=== PATIENT | male | born 1940 | race Caucasian/White ===

== ENCOUNTER → 2017-04-06 | Outpatient (CLI) | payer OTHER ==
[~2017-04-06] MED LIST: ASPCH81X PO; CIPR-255 PO; DUTA0.5C PO; IPRA1AER2 INH; MOME200A INH; OXYC-57 PO; PANT40TA PO; PHEN-775 PO; TAMS0.4C38 PO
--- NOTE | 2017-04-06 13:00 | DIAGNOSTIC IMAGING REPORT ---
CHEST 2 VIEWS ROUTINE CLINICAL HISTORY: PRE-OP preoperative evaluation COMPARISON STUDY: 09/21/2013 FINDINGS: The bones soft tissues and hemidiaphragms are normal. The cardiomediastinal silhouette is normal. The lungs are clear. The pulmonary vasculature is normal. IMPRESSION: Negative chest. Electronically signed by: Skyler Machado M.D. 04/06/2017 12:58 PM Dictated Date/Time: 04/06/2017 12:58 PM
[2017-04-06 13:20] LABS: BASO % 0.9 %; BASO ABS # 0.07 K/uL (0-0.2); COMPLETE YES; EOS % 2.6 %; HEMATOCRIT 46.2 % (42-52); IG% 0.3 %; LYMPH % 26.8 %; LYMPH ABS # 2.05 K/uL (1.2-3.4); MEAN CELL VOLUME 90.1 fL (80-100); MEAN CORPUSCULAR HEMOGLOBIN 29.8 pg (25-34); MEAN CORPUSCULAR HGB CONC 33.1 g/dl (32-36); MEAN PLATELET VOLUME 10.4 fL (7.4-10.4); MONO % 7.6 %; NEUT % 61.8 %; PLATELET COUNT 248 K/uL (130-400); RED BLOOD COUNT 5.13 M/uL (4.7-6.1); WHITE BLOOD COUNT 7.64 K/uL (4.8-10.8)
[2017-04-06 13:48] LABS: BLOOD UREA NITROGEN 15 mg/dl (7-18); BUN/CREATININE RATIO 15.3 (10-20); CARBON DIOXIDE 25 mmol/L (21-32); CHLORIDE 107 mmol/L (98-107); GLUCOSE 112 mg/dl (70-99); POTASSIUM 4.4 mmol/L (3.5-5.1); SODIUM 141 mmol/L (136-145)
[2017-04-06 14:15] LABS: URINE APPEARANCE CLEAR (CLEAR); URINE BILIRUBIN NEG (NEG); URINE COLOR YELLOW; URINE NITRITE NEG (NEG); URINE SPECIFIC GRAVITY 1.011 (1.000-1.030); UROBILINOGEN NEG (NEG)
[2017-04-06 14:28] LABS: MANUAL MICROSCOPIC REQUIRED? NO; REVIEW REQ? NO
== END | disposition home or self-care (01) ==
LOC: C.CPL 12:21
PROVIDERS: ATTEND Urology
DX: Z01.810 Encounter for preprocedural cardiovascular examination (principal); Z01.811 Encounter for preprocedural respiratory examination; Z01.812 Encounter for preprocedural laboratory examination; I45.10 Unspecified right bundle-branch block

== ENCOUNTER 2017-04-19 06:53 | Day surgery (SDC) | payer OTHER ==
[2017-04-06 13:21] VITALS: BMI 28.0
--- NOTE | 2017-04-06 13:48 | PAT Medication Instructions ---
Service Date Apr 06, 2017. Current Home Medication List Aspirin (Aspirin Chewable), 81 MG PO QAM Dutasteride (Avodart), 0.5 MG PO QPM Mometasone Furoate-Formoterol (Dulera 200/5 Mcg), 2 PUFFS INH BID Pantoprazole Sodium (Protonix), 40 MG PO QAM Tamsulosin Hcl (Flomax), 0.4 MG PO QPM Medication Instructions For Your Scheduled Surgery - Hold the following medications 7-10 days prior to surgery per surgeon's instructions: Aspirin (Aspirin Chewable), 81 MG PO QAM - Take the following medications the morning of surgery with a sip of water OTHERWISE NOTHING TO EAT OR DRINK AFTER MIDNIGHT: Pantoprazole Sodium (Protonix), 40 MG PO QAM Mometasone Furoate-Formoterol (Dulera 200/5 Mcg), 2 PUFFS INH BID - Take the following medications as scheduled the night before surgery: Dutasteride (Avodart), 0.5 MG PO QPM Tamsulosin Hcl (Flomax), 0.4 MG PO QPM Mometasone Furoate-Formoterol (Dulera 200/5 Mcg), 2 PUFFS INH BID If you have any questions please call us at [phone] or [phone] or [phone]
[~2017-04-19] VITALS: Ht 167.6 cm; Wt 80.4 kg
[~2017-04-19 06:53] MED LIST changes: -CIPR-255 PO; +CIPROFLOXACIN / D5W 400 MG IV SCH; -IPRA1AER2 INH; +LACTATED RINGER'S 1000ML 1,000 ML IV SCH; -OXYC-57 PO; -PHEN-775 PO
[2017-04-19] MEDS ORDERED: ATROPINE SULFATE 0.1 MG/ML 5ML SYR IV PRN (07:00)
[2017-04-19] MEDS ORDERED: ONDANSETRON INJ 2 MG/ML 2 ML VIAL IV PRN (07:00)
[2017-04-19] MEDS ORDERED: EpHEDrine SULFATE INJ 50 MG/ML AMP IV PRN (07:00)
[2017-04-19] MEDS ORDERED: HYDROmorphone INJ 1 MG/ML SYR IV PRN (07:00)
[2017-04-19] MEDS ORDERED: FENTANYL CITRATE INJ 50 MCG/1 ML 2 ML VIAL IV PRN (07:00)
[2017-04-19 07:22] VITALS: BP 140/77; PULSE 90; TEMP 36.7; O2SAT 94; Ht 167.6 cm; Wt 80.4 kg
[2017-04-19] MEDS ORDERED: PROPOFOL IV EMULSION 10 MG/ML 20 ML VIAL IV ONE (07:28)
[2017-04-19] MEDS ORDERED: MIDAZOLAM HCL 1 MG/ML 2ML VIAL ONE (07:28)
[2017-04-19] MEDS ORDERED: LIDOCAINE HCL 2% 2 ML VIAL (20MG/ML) ONE (07:28)
[2017-04-19] MEDS ORDERED: DEXAMETHASONE SOD INJ 4 MG/ML VIAL ONE (07:28)
[2017-04-19] MEDS ORDERED: FENTANYL CITRATE INJ 50 MCG/1 ML 2 ML VIAL ONE (07:28)
[2017-04-19] MEDS ORDERED: ONDANSETRON INJ 2 MG/ML 2 ML VIAL ONE (07:29)
--- NOTE | 2017-04-19 08:04 | History & Physical Bridge Note ---
H&P Re-Evaluation Bridge Note: I have examined the patient, reviewed the History & Physical and in the interval since the performance of the History & Physical I have noted the following changes of clinical significance: No changes noted
[2017-04-19] MEDS ORDERED: CIPR-255 PO (08:30)
[2017-04-19] MEDS ORDERED: OXYC-57 PO (08:30)
[2017-04-19] MEDS ORDERED: PHEN-775 PO (08:30)
[2017-04-19] MEDS ORDERED: BELLADONNA/OPIUM SUPP 60 MG SUPP PR ONE ×2 (08:50→08:56)
--- NOTE | 2017-04-19 09:17 | Discharge Instructions ---
Discharge Instructions Date of Service Apr 19, 2017. Admission Reason for Admission: Benign Prostatic Hypertrophy Discharge Discharge Diagnosis / Problem: BPH s/p GLTURP Discharge Goals Goal(s): Decrease discomfort, Improve function, Improve disease control, Therapeutic intervention Activity Recommendations Activity Limitations: per Instructions/Follow-up section Lifting Limitations: no more than 25 pounds, gradually increase as tolerated ( over 3 days) Exercise/Sports Limitations: rest today, gradually increase as tolerated (over 3 days) May Resume Sexual Activity: after two weeks Shower/Bathe: tomorrow (no tub bath) Driving or Machine Use: resume 3 days after discharge (after romano is out) . Discharge Diet Recommended Diet: Regular Diet (good fluid intake) Procedures Procedures Performed: Greenlight Transurethral Vaporization of Prostate Pending Studies Studies pending at discharge: no Medical Emergencies . Who to Call and When: Medical Emergencies: If at any time you feel your situation is an emergency, please call 911 immediately. . Non-Emergent Contact Non-Emergency issues call your: Urologist Call Non-Emergent contact if: you have a fever, temperature is above 101, your pain is not controlled, your pain is worsening, your pain is unusual for you, your pain is concerning you, you have any medication questions . . "Provider Documentation" section prepared by Demetris Purdy. . VTE Core Measure Inpt VTE Proph given/why not?: SCD's [place] Drug Monitoring Program Search Results: patient reviewed within database, no issues identified
--- NOTE | 2017-04-19 09:21 | [facility] Post Operative Brief Note ---
Immediate Operative Summary Operative Date Apr 19, 2017. Pre-Operative Diagnosis Benign prostatic hypertrophy with obstruction/lower urinary tract symptoms Post-Operative Diagnosis Same Procedure(s) Performed Greenlight Transurethral Vaporization of Prostate Surgeon Dr Cyn Purdy Manager Lighting Surgeon(s) NA Estimated Blood Loss 5ml Findings Open fossa, excellent hemostasis after 65K J used Specimens none Drains 20 fr 10 cc H2O Anesthesia GALMA Complication(s) None Disposition Recovery Room / PACU
--- NOTE | 2017-04-19 09:23 | [facility] Operative Report ---
Operative Report Operative Date Apr 19, 2017. Pre-Operative Diagnosis Benign prostatic hypertrophy with obstruction/lower urinary tract symptoms Post-Operative Diagnosis Same Procedure(s) Performed GLTURP Surgeon Dr Cyn Purdy Sewage Plant Attendant Surgeon(s) NA Estimated Blood Loss 5ml Findings Open fossa with excellent hemostasis after 65K J used Specimens none Drains 20 fr 10 cc H2O Anesthesia GALMA Complication(s) None Disposition Recovery Room / PACU Indications Refractory BPH Description of Procedure Cipro IV and SCDs used. radio time buyer out completed, appropriate consent in chart. Prepped and draped in dorsal lithotomy. GL laser scope placed into bladder under direction visualization with visual obturator - lateral lobe BPH, mild to mod with obstructive bladder neck. UOs identified, adequately removed from BN, uninjured throughout case. No intravesical lesions, grade 2 trabeculation. Using side fire GL laser fiber circumferential vaporization carried out until fossa open. Relaxing incisions at BN at 5 and 7 oclock. Excellent hemostasis and opening of fossa, 65K J used. 20 fr romano placed with clear urine, 10 cc H2O , B&O provided, transferred RR in stable condition. I attest to the content of the Intraoperative Record and any orders documented therein. Any exceptions are noted below.
[2017-04-19] MEDS ORDERED: OXYCODONE/ACETAMINOPHEN 5-325 TAB PO PRN (09:30)
[2017-04-19] MEDS ORDERED: PHENAZOPYRIDINE HCL 200 MG TAB PO PRN (09:30)
--- NOTE | 2017-04-19 09:49 | Anesthesiology Progress Note ---
Anesthesia Post Op Note Date & Time Apr 19, 2017 at 09:49 Vital Signs Pain Intensity: 0 Vital Signs Past 12 Hours Date Time Temp Pulse Resp B/P (MAP) Pulse Ox O2 Delivery O2 Flow Rate FiO2 04/19/17 09:40 78 14 135/85 96 Oxymask 5 04/19/17 09:30 75 14 131/84 96 Oxymask 5 04/19/17 09:20 76 14 130/81 96 Oxymask 10 04/19/17 09:14 36.0 80 14 139/79 96 Oxymask 10 04/19/17 07:22 36.7 90 20 140/77 (98) 94 Room Air Notes Mental Status: alert / awake / arousable, participated in evaluation Pt Amnestic to Procedure: Yes Nausea / Vomiting: adequately controlled Pain: adequately controlled Airway Patency, RR, SpO2: stable & adequate BP & HR: stable & adequate Hydration State: stable & adequate Anesthetic Complications: no major complications apparent
[2017-04-19 10:00] VITALS: BP 112/69; PULSE 72; TEMP 36.6; O2SAT 94
[2017-04-19 10:30] VITALS: BP 119/72; PULSE 67; O2SAT 94
[2017-04-19 10:59] VITALS: BP 139/83; PULSE 71; TEMP 36.5; O2SAT 96
== END 2017-04-19 11:08 | disposition home or self-care (01) ==
LOC: C.ACU 06:53
PROVIDERS: ATTEND Urology
DX: N40.1 Benign prostatic hyperplasia with lower urinary tract symptoms (principal); N13.8 Other obstructive and reflux uropathy; N52.9 Male erectile dysfunction, unspecified; J44.9 Chronic obstructive pulmonary disease, unspecified; M19.90 Unspecified osteoarthritis, unspecified site; E11.9 Type 2 diabetes mellitus without complications; J45.909 Unspecified asthma, uncomplicated; Z98.890 Other specified postprocedural states; Z88.0 Allergy status to penicillin; Z87.891 Personal history of nicotine dependence; Z79.82 Long term (current) use of aspirin; Z83.3 Family history of diabetes mellitus; Z82.49 Family history of ischemic heart disease and other diseases of the circulatory system; Z68.28 Body mass index [BMI] 28.0-28.9, adult

== ENCOUNTER → 2017-05-12 | Outpatient (CLI) | payer OTHER ==
[~2017-05-12] MED LIST changes: +CIPR-255 PO; -CIPROFLOXACIN / D5W 400 MG IV SCH; -LACTATED RINGER'S 1000ML 1,000 ML IV SCH; +OXYC-57 PO
== END | disposition home or self-care (01) ==
LOC: C.LABSPEC 16:53
PROVIDERS: ATTEND Urology
DX: N40.1 Benign prostatic hyperplasia with lower urinary tract symptoms (principal); N52.9 Male erectile dysfunction, unspecified

== ENCOUNTER → 2017-12-22 | Outpatient (CLI) | payer OTHER ==
[~2017-12-22] MED LIST changes: -OXYC-57 PO
--- NOTE | 2017-12-22 13:56 | DIAGNOSTIC IMAGING REPORT ---
BONE SCAN WHOLE BODY CLINICAL HISTORY: 77 years-old Male presenting with R74.8 Elevated alkaline phosphatase [id number]. TECHNIQUE: Planar anterior and posterior imaging of the whole body was performed 3 hours following the intravenous administration of 24.9 mCi Tc-99m MDP. COMPARISON: Chest x-ray from 04/06/2017 FINDINGS: No focal abnormal radiotracer uptake in the axial or appendicular skeleton. Soft tissues within normal limits. Expected radiotracer activity in the kidneys and urinary bladder. Radiotracer uptake in the region of the right scrotum likely represents micturition. IMPRESSION: 1. No abnormal radiotracer uptake in the axial or appendicular skeleton. Electronically signed by: Cristobal Morrow M.D. 12/22/2017 1:55 PM Dictated Date/Time: 12/22/2017 1:53 PM
== END | disposition home or self-care (01) ==
LOC: C.NUCL 10:31
PROVIDERS: ATTEND Internal Medicine
DX: R74.8 Abnormal levels of other serum enzymes (principal)

== ENCOUNTER 2020-11-01 11:37 | Observation (INO) ==
[2020-11-01] MEDS ORDERED: ALBUT/IPRATROP 3MG/0.5MG NEB 3 ML VIAL NEB ONE (11:58)
--- NOTE | 2020-11-01 12:01 | Emergency Department Note ---
Impression & Plan COPD with acute exacerbation ED Provider Note Provider: Humphrey Francis MD DATE OF SERVICE:11/01/2020 CHIEF COMPLAINT: Shortness of breath HISTORY OF PRESENT ILLNESS: Patient is a 80-year-old gentleman history of COPD and restrictive lung disease presenting today complaining of shortness of breath worsening over the last several months particular last week. Denies fever or URI symptoms. Reports shortness of breath with some chest congestion and clear productive cough. States some pain in his chest he believes related to the coughing increased work of breathing. Denies nausea vomiting or abdominal pain. Denies loss of taste. Denies trauma or falls. Denies leg swelling. Patient states over the last week is prickly worsened and he cannot lie flat at night anymore. Was worse last night and family finally convinced to be evaluated today. Several family contacts with Covid although he states he has been isolating from them. Patient states he does not have any inhalers or nebulizers has been using at home. REVIEW OF SYSTEMS: A total of 10 review of systems was obtained and negative except as stated above in the HPI. PAST MEDICAL HISTORY: As noted above MEDICATIONS: Reviewed home medication list. Includes Advair at home and as needed albuterol SOCIAL HISTORY: Former longtime smoker, lives at home with PHYSICAL EXAM: GENERAL: alert and oriented seated on the stretcher. Head: normocephalic and atraumatic EYES: No injection, discharge or icterus. NECK: Trachea midline. LUNGS: Airway patent. Mild tachypnea with diffuse expiratory wheeze. HEART: Regular rate and rhythm. No chest wall tenderness ABDOMEN: Soft and non-tender, without guarding or rebound. SKIN: Acyanotic, warm, dry, without rashes EXTREMITIES: Without swelling, tenderness or deformity NEUROLOGICAL: No focal deficits. No aphasia. No facial droop or slurred speech. EK bpm sinus tachycardia with PACs. No acute ST segment elevation noted. Incomplete right bundle branch block. Compared to previous film from April [id number], increased heart rate with more of an incomplete right bundle branch block and right bundle branch block noted CONTINUOUS CARDIAC MONITORING: was ordered and showed a heart rate of 100s-120s bpm in sinus tachycardia Patient's laboratory studies and imaging reviewed. Differential includes Reactive airway disease, pneumonia, pneumothorax, COPD, C HF, infections, cardiac ischemia, pulmonary embolism, musculoskeletal, gastrointestinal, as well as other pathologies. IMPRESSION/MEDICAL DECISION MAKING: Patient with a history of COPD and restrictive lung disease reports significantly worsening breathing of the past week possible Covid exposure. Patient denies URI symptoms or fever however the shortness of breath is somewhat concerning Covid test will be ordered. EKG without significant ischemic changes appreciated. Patient significantly wheezy on exam but not hypoxic. Given a DuoNeb and chest x-ray and basic labs are ordered. No significant leg swelling appreciated on exam but a BNP was ordered. D-dimer sent to help exclude PE. Doubt this represents acute aortic dissection. Lactate and culture sent given some concern for possible infectious etiology. Leukocytosis of 10.8. Borderline anemia. No significant electrolyte abn ormality. Lactate not elevated. No transaminitis. Rapid Covid test was negative. Chest x-ray shows per radiology report evidence of cardiomegaly with reticular opacities questioning pulmonary vascular congestion versus pneumonitis. proBNP is not elevated again he does not examine significantly fluid overloaded. Troponin is undetectable and lean against an acute ACS or NC. TSH within normal limits. No evidence of transaminitis or hepatitis based on labs. D-dimer is somewhat elevated at [address] and as such a CT of the chest was completed to further evaluate the lungs and exclude PE. No evidence of PE noted per radiology report. Patient on reassessment is having some improvement of his breathing after being started on the nebulizer treatment. Discussed with him options this time. He expressed some concern regarding possible recurrence of symptoms at this nebulizer wears off and he does not have a nebulizer at home. Discussed with him options of trial going home on steroids versus observation here in the hospital. He was given an IV dose of Solu-Medrol here as well as a dose of doxycycline questioning some bronchitis noted on the CT. Discussion with the patient he felt more comfortable being monitored here overnight in the hospital and the hospitalist was contacted. DIAGNOSIS: COPD exacerbation DISPOSITION: Hospitalist will evaluate Patient was agreeable with this plan. Past Med/Surg History Medical History (Updated 11/01/20 @ 15:52 by Humphrey Francis M.D.) BPH (benign prostatic hyperplasia) Carcinoma of right eyelid Chronic obstructive pulmonary disease inhalers daily/prn COPD (chronic obstructive pulmonary disease) Cyst in hand right hand 06/2019 GERD (gastroesophageal reflux disease) Kidney stones Restrictive lung disease Surgical History H/O: knee surgery RT TENDON REPAIR History of cardiac cath HEART CATH X 2/NO STENTS History of colon resection BENIGN History of colonoscopy History of eyelid surgery right d/t cancer History of rectal surgery GROWTH REMOVAL History of tonsillectomy and adenoidectomy History of tooth extraction Hx of transurethral resection of prostate Family History Brother Type 2 diabetes mellitus Aunt Type 2 diabetes mellitus Myocardial infarction Social History Smoking Status: Former smoker Tobacco Type: Cigarettes Age Started Using Tobacco: 9; Age Quit Using Tobacco: 73; packs per day: 1; Years Smoked: 64; Second Hand Exposure: No; Hx Alcohol Use: No Hx Substance Use: No Preferred Language: Guyanese Communication Ability: Effective Visual Impairment: Limited Hearing Ability: Use of Hearing Aid Compress Trucker Required: No Beliefs That Will Affect Care: None marital status: Current Living Situation: Spouse current occupational status: retired Feels Safe at Home: Yes Childhood Exposure to Second-Hand Smoke: Yes caffeine: Yes Dental Care, Regularly: No Physical Activity Frequency: Daily Physical Activity Frequency Comment: walk Seatbelt Use: always Sunscreen Use: No (stays out of the sun) Do you think of yourself as: straight/heterosexual Assistive Devices: Denture - Upper, Denture - Lower, Glasses and Hearing Aid - Right Allergies Allergies Allergy/AdvReac Type Severity Reaction Status Date / Time Penicillins Allergy Severe SHORTNESS Verified 11/01/20 14:15 OF BREATH procaine Allergy Unknown FLUSHING Verified 11/01/20 14:15 AND SHORTNESS OF BREATH Home Meds Home Medications Medication Instructions Recorded Confirmed aspirin 81 mg PO QAM #0 02/27/15 11/01/20 albuterol sulfate [ProAir HFA] 1 puff INHALATION DIRECTED PRN 06/15/18 11/01/20 cholecalciferol (vitamin D3) 3,000 unit PO QDD 11/01/20 11/01/20 [Vitamin D3] finasteride 5 mg PO QAM 11/01/20 11/01/20 fluticasone furoate-vilanterol 1 inh INHALATION HS 11/01/20 11/01/20 [Breo Ellipta] metformin 500 mg PO QAM 11/01/20 11/01/20 methimazole 5 mg PO QAM 11/01/20 11/01/20 pantoprazole 40 mg PO QAM 11/01/20 11/01/20 zinc 0 mg PO HS 11/01/20 11/01/20 Results & Data (ED) Vital Signs Vital Signs - 24 hr 11/01/20 11:43 11/01/20 11:54 11/01/20 11:56 Temperature 37.1 C Temperature Source Oral Pulse Rate 101 H Pulse Rate [Finger] Pulse Rhythm Regular Pulse Strength Normal Respiratory Rate 28 H Respiratory Effort / Characteristics Non-Labored Spontaneous Non-Labored Spontaneous Respiratory Depth Normal Respiratory Pattern Regular Blood Pressure 140/74 Blood Pressure [Right Arm] Blood Pressure Mean 96 Blood Pressure Mean [Right Arm] Pulse Oximetry 94 93 Oxygen Delivery Method Room Air Room Air Room Air Sepsis Recent Fever Within 48 Hours No Sepsis New/Unexplained Change in Mental Status N/A Sepsis Action Taken by Nursing No Action Required 11/01/20 12:02 11/01/20 12:14 11/01/20 13:09 Temperature Temperature Source Pulse Rate Pulse Rate [Finger] 101 H 106 H Pulse Rhythm Pulse Strength Respiratory Rate 24 20 Respiratory Effort / Characteristics Spontaneous Short of Breath Respiratory Depth Respiratory Pattern Blood Pressure Blood Pressure [Right Arm] 167/86 H Blood Pressure Mean Blood Pressure Mean [Right Arm] 113 Pulse Oximetry 93 95 99 Oxygen Delivery Method Room Air Room Air Nebulizer Sepsis Recent Fever Within 48 Hours Sepsis New/Unexplained Change in Mental Status Sepsis Action Taken by Nursing 11/01/20 14:30 11/01/20 15:30 Temperature Temperature Source Pulse Rate Pulse Rate [Finger] 110 H 110 H Pulse Rhythm Pulse Strength Respiratory Rate 22 22 Respiratory Effort / Characteristics Respiratory Depth Normal Respiratory Pattern Blood Pressure Blood Pressure [Right Arm] 125/89 123/88 Blood Pressure Mean Blood Pressure Mean [Right Arm] 101 99 Pulse Oximetry 94 95 Oxygen Delivery Method Room Air Room Air Sepsis Recent Fever Within 48 Hours Sepsis New/Unexplained Change in Mental Status Sepsis Action Taken by Nursing Laboratory Data Result diagrams: 11/01/20 11:56 11/01/20 11:56 Lab Results 11/01/20 11/01/20 11/01/20 Range/Units 11:56 11:56 11:56 WBC 10.89 H (4.8-10.8) K/uL RBC 5.17 (4.7-6.1) M/uL Hgb 13.9 L (14.0-18.0) g/dL Hct 42.8 (42-52) % MCV 82.8 (80-100) fL MCH 26.9 (25-34) pg MCHC 32.5 (32-36) g/dL RDW Std Deviation 45.7 (36.4-46.3) fL RDW Coeff of Thalia 15.1 H (11.5-14.5) % Plt Count 338 (130-400) K/uL MPV 10.3 (7.4-10.4) fL Immature Gran % (Auto) 0.2 % Neut % (Auto) 68.0 % Lymph % (Auto) 16.8 % [place] % (Auto) 7.3 % Eos % (Auto) 6.6 % Baso % (Auto) 1.1 % Neut # (Auto) 7.40 H (1.4-6.5) K/uL Lymph # (Auto) 1.83 (1.2-3.4) K/uL [place] # (Auto) 0.80 H (0.11-0.59) K/uL Eos # (Auto) 0.72 H (0-0.5) K/uL Baso # (Auto) 0.12 (0-0.2) K/uL Immature Gran # (Auto) 0.02 (0.00-0.02) K/uL PT 10.5 (9.0-12.0) Seconds INR 1.0 (0.9-1.1) APTT 25.8 (21.0-31.0) Seconds PTT Ratio 0.9 D-Dimer 550 H* (0-500) ug/L FEU Sodium 138 (136-145) mmol/L Potassium 4.1 (3.5-5.1) mmol/L Chloride 105 (98-107) mmol/L Carbon Dioxide 25 (21-32) mmol/L Anion Gap 7.0 (3-11) BUN 16 (7-18) mg/dl Creatinine 1.10 (0.6-1.4) mg/dl Est Cr Clr Drug Dosing 54.1 ml/min Est GFR ( Amer) 73.6 Est GFR (Non-Af Amer) 63.5 BUN/Creatinine Ratio 14.4 (10-20) Glucose 133 H (70-99) mg/dl Lactate (0.4-2.0) mmol/L Calcium 9.8 (8.5-10.1) mg/dl Magnesium 1.8 (1.8-2.4) mg/dl Total Bilirubin 0.5 (0.2-1) mg/dl AST 14 L (15-37) U/L ALT 31 (12-78) U/L Alkaline Phosphatase 117 (45-117) U/L Troponin I < 0.015 (0-0.045) ng/ml NT-Pro-B Natriuret Pep 99 (0-1800) pg/ml Total Protein 8.0 (6.4-8.2) gm/dl Albumin 4.0 (3.4-5.0) gm/dl Globulin 4.0 (2.5-4.0) gm/dl Albumin/Globulin Ratio 1.0 (0.9-2) TSH 1.790 (0.300-4.500) uIu/ml COVID-19 Eval Order SARS-CoV-2, RNA, NAAT (NEGATIVE) 11/01/20 11/01/20 11/01/20 Range/Units 12:11 12:13 12:13 WBC (4.8-10.8) K/uL RBC (4.7-6.1) M/uL Hgb (14.0-18.0) g/dL Hct (42-52) % MCV (80-100) fL MCH (25-34) pg MCHC (32-36) g/dL RDW Std Deviation (36.4-46.3) fL RDW Coeff of Thalia (11.5-14.5) % Plt Count (130-400) K/uL MPV (7.4-10.4) fL Immature Gran % (Auto) % Neut % (Auto) % Lymph % (Auto) % [place] % (Auto) % Eos % (Auto) % Baso % (Auto) % Neut # (Auto) (1.4-6.5) K/uL Lymph # (Auto) (1.2-3.4) K/uL [place] # (Auto) (0.11-0.59) K/uL Eos # (Auto) (0-0.5) K/uL Baso # (Auto) (0-0.2) K/uL Immature Gran # (Auto) (0.00-0.02) K/uL PT (9.0-12.0) Seconds INR (0.9-1.1) APTT (21.0-31.0) Seconds PTT Ratio D-Dimer (0-500) ug/L FEU Sodium (136-145) mmol/L Potassium (3.5-5.1) mmol/L Chloride (98-107) mmol/L Carbon Dioxide (21-32) mmol/L Anion Gap (3-11) BUN (7-18) mg/dl Creatinine (0.6-1.4) mg/dl Est Cr Clr Drug Dosing ml/min Est GFR ( Amer) Est GFR (Non-Af Amer) BUN/Creatinine Ratio (10-20) Glucose (70-99) mg/dl Lactate 1.5 (0.4-2.0) mmol/L Calcium (8.5-10.1) mg/dl Magnesium (1.8-2.4) mg/dl Total Bilirubin (0.2-1) mg/dl AST (15-37) U/L ALT (12-78) U/L Alkaline Phosphatase (45-117) U/L Troponin I (0-0.045) ng/ml NT-Pro-B Natriuret Pep (0-1800) pg/ml Total Protein (6.4-8.2) gm/dl Albumin (3.4-5.0) gm/dl Globulin (2.5-4.0) gm/dl Albumin/Globulin Ratio (0.9-2) TSH (0.300-4.500) uIu/ml COVID-19 Eval Order Covid19 IDNow Replaced by [facility] SARS-CoV-2, RNA, NAAT NEGATIVE (NEGATIVE) Administered Medications Discontinued Medications Albuterol (Albut/Ipratrop 3mg/0.5mg Neb 3 Ml Vial) 12 ml NEB ONE ONE Stop: 11/01/20 11:59 Last Admin: 11/01/20 12:13 Dose: 12 ml Documented by: [id number] Doxycycline Hyclate (Doxycycline Hyclate 100 Mg Cap) 100 mg PO NOW STA Stop: 11/01/20 14:09 Last Admin: 11/01/20 14:28 Dose: 100 mg Documented by: [id number] Methylprednisolone 60 mg/ (Syringe) 1.96 mls @ 1.5 mls/min IV NOW STA Stop: 11/01/20 14:08 Last Admin: 11/01/20 14:28 Dose: Not Given Documented by: [id number] Ioversol (Optiray 320 125ml) 118 ml IV ONCE ONE Stop: 11/01/20 13:35 Last Admin: 11/01/20 13:34 Dose: 118 ml Documented by: [id number] Methylprednisolone (Methylprednisolone 125 Mg/2 Ml Vial) Confirm Administered Dose 125 mg .ROUTE .STK-MED ONE Stop: 11/01/20 14:25 Last Admin: 11/01/20 14:28 Dose: 60 mg Documented by: [id number] Discharge Plan Visit Data Chief Complaint: Shortness of Breath/Dyspnea Stated Complaint: SOB ED Provider: Humphrey Francis Discharge Problem: COPD with acute exacerbation Patient Disposition: Being Evaluated by Hospitalist Forms Stand Alone Forms: My [facility] [employer] Prescriptions Prescriptions: No Action aspirin 81 mg Tablet,Chewable 81 mg PO QAM Qty: 0 RF: 0 albuterol sulfate [ProAir HFA] 90 mcg/actuation Hfa Aerosol Inhaler 1 puff Inhalation DIRECTED PRN (Reason: Shortness Of Breath) RF: 0 zinc 50 mg Tablet 0 mg PO HS RF: 0 cholecalciferol (vitamin D3) [Vitamin D3] 25 mcg (1,000 unit) Tablet 3,000 unit PO QDD RF: 0 pantoprazole 40 mg tablet,delayed release (DR/EC) 40 mg PO QAM RF: 0 methimazole 5 mg tablet 5 mg PO QAM RF: 0 metformin 500 mg tablet extended release 24 hr 500 mg PO QAM RF: 0 finasteride 5 mg tablet 5 mg PO QAM RF: 0 Breo Ellipta 100-25 mcg/dose blister with device 1 inh inhalation HS RF: 0 Referrals Referrals: Cristobal Galo MD [Primary Care Provider] -
[2020-11-01 12:36] LABS: Basophils # (auto) 0.12 K/uL (0-0.2); Basophils % (auto) 1.1 %; Eosinophils # (auto) 0.72 K/uL (0-0.5); Eosinophils % (auto) 6.6 %; Hematocrit (blood only) 42.8 % (42-52); Hemoglobin 13.9 g/dL (14.0-18.0); Immature Granulocytes # (auto) 0.02 K/uL (0.00-0.02); Immature Granulocytes % (auto) 0.2 %; Lymphocytes # (auto) 1.83 K/uL (1.2-3.4); Lymphocytes % (auto) 16.8 %; Mean Corpuscular Hemoglobin 26.9 pg (25-34); Mean Corpuscular Hgb Conc 32.5 g/dL (32-36); Mean Corpuscular Volume 82.8 fL (80-100); Mean Platelet Volume 10.3 fL (7.4-10.4); Monocytes % (auto) 7.3 %; Platelet Count 338 K/uL (130-400); RDW Coefficient of Variation 15.1 % (11.5-14.5); RDW Standard Deviation 45.7 fL (36.4-46.3); Red Blood Count 5.17 M/uL (4.7-6.1); White Blood Count 10.89 K/uL (4.8-10.8)
--- NOTE | 2020-11-01 12:40 | XRay Report ---
XR chest 1V portable HISTORY: 80 years-old Male Dyspnea acute shortness of breath COMPARISON: Chest radiograph 04/06/2017 TECHNIQUE: Portable AP view of the chest FINDINGS: Cardiac silhouette is mildly enlarged. There is no pneumothorax or large pleural effusion. Ill-define d interstitial opacities of the mid and lower lung zones are new/progressed from comparison. Degenera tive changes of the shoulders and spine. IMPRESSION: Cardiomegaly with mild bilateral reticular opacities are new/progressed from comparison. Pulmonary va scular congestion versus a mild nonspecific pneumonitis considered. ACT 112: Negative or not required by law. The above report was generated using voice recognition software. It may contain grammatical, syntax o r spelling errors. Electronically signed by: Huber Patel M.D. 11/01/2020 12:39 PM
[2020-11-01 12:51] LABS: Partial Thromboplastin Ratio 0.9; Partial Thromboplastin Time 25.8 Seconds (21.0-31.0); Prothrombin Time 10.5 Seconds (9.0-12.0)
[2020-11-01 12:53] LABS: Alanine Aminotransferase 31 U/L (12-78); Aspartate Aminotransferase 14 U/L (15-37); BUN Creatinine Ratio 14.4 (10-20); Blood Urea Nitrogen 16 mg/dl (7-18); Calcium 9.8 mg/dl (8.5-10.1); Carbon Dioxide 25 mmol/L (21-32); Chloride 105 mmol/L (98-107); Creatinine Clr Calc Pharmacy 54.1 ml/min; Est GFR (African American) 73.6; Est GFR (Non-African American) 63.5; Glucose 133 mg/dl (70-99); Magnesium 1.8 mg/dl (1.8-2.4); Potassium 4.1 mmol/L (3.5-5.1); Sodium 138 mmol/L (136-145)
[2020-11-01 12:57] LABS: D Dimer 550 ug/L FEU (0-500)
[2020-11-01 13:04] LABS: Alkaline Phosphatase 117 U/L (45-117); Bilirubin,Total 0.5 mg/dl (0.2-1); NT Pro B Type Natriuretic Pept 99 pg/ml (0-1800); Troponin I < 0.015 ng/ml (0-0.045)
[2020-11-01] MEDS ORDERED: OPTIRAY 320 125ml IV ONE (13:34)
--- NOTE | 2020-11-01 14:05 | CT Scan Report ---
CHEST CTA for PULMONARY ARTERIES CT DOSE: 533.65 mGy.cm HISTORY: PE, shortness of breath, +DIMER TECHNIQUE: Multiaxial CT images of the chest were performed following the intravenous administration of contrast to evaluate the pulmonary arteries. Maximal intensity projection images were also obtaine d. A dose lowering technique was utilized adhering to the principles of ALARA. COMPARISON STUDY: None. FINDINGS: Normal caliber thoracic aorta with no evidence for dissection. Nondiagnostic evaluation of the bilateral lower lobe subsegmental pulmonary arteries due to the motion artifact. However, the rem aining pulmonary arteries show no filling defects to suggest pulmonary embolus. The heart is normal i n size. No pleural or pericardial effusions. Limited views the upper abdomen demonstrate normal liver , spleen, and adrenal glands. There is a single prominent right hilar lymph node measuring 1 cm in sh ort axis diameter. The remaining mediastinal and hilar lymph nodes measure subcentimeter and do not m eet CT criteria for pathologic involvement. Normal esophagus. No suspicious lytic or blastic osseous lesions. No pneumothorax. Mild respiratory motion artifact. There is mild central bronchial wall thic kening. There is mild emphysema. A few partially opacified bilateral lower lobe segmental bronchi. No focal lung consolidations to suggest pneumonia. No evidence for pulmonary edema. There is a 5 mm ind eterminate pulmonary nodule within the right upper lobe anteriorly on image 149. IMPRESSION: 1. No evidence for pulmonary embolus with limitations as described above. 2. Mild emphysema. 3. Mild central bronchial wall thickening with a few partially opacified bilateral lower lobe bronchi . This may represent a bronchitis. 4. A 5 mm indeterminate pulmonary nodule within the right upper lobe. Please refer to the chart below for recommended follow-up. Please refer to below summary of Fleischner criteria recommendations for follow-up of incidental CT n odules (Cyn Soria, Guidelines for management of small pulmonary nodules detected on CT scans: A sta tement from the Fleischner Society, Radiology 237: [phone].) SOLID NODULES Solitary nodule size: <6 mm * Low risk patients: no follow-up needed * high risk patients: optional CT at 12 months Solitary nodule size: 6-8 mm * Low risk patients: follow-up at 6-12 months, then consider further follow-up at 18-24 months * high risk patients: initial follow-up CT at 6-12 months and then at 18-24 months if no change Solitary nodule size: >8 mm * either low or high risk patients - consider follow-up CT at 3 months, and/or CT-PET, and/or biopsy Multiple nodules size: <6 mm * Low risk patients: no routine follow-up * high risk patients: optional CT at 12 months Multiple nodules size: 6-8 mm * Low risk patients: follow-up at 3-6 months, then consider further follow-up at 18-24 months * high risk patients: follow-up at 3-6 months, then at 18-24 months if no change Multiple nodules size: >8 mm * Low risk patients: follow-up at 3-6 months, then consider further follow-up at 18-24 months * high risk patients: follow-up at 3-6 months, then at 18-24 months if no change Note: newly detected indeterminate nodule in persons 35 years of age or older. * Low risk patients: minimal or absent history of smoking and/or other known risk factors * high risk patients: history of smoking or of other known risk factors (e.g. first degree relative with lung cancer, or exposure to asbestos, radon, uranium) * if a nodule up to 8 mm is partly solid or is ground glass further follow-up is required after 24 m onths to exclude possible slow growing adenocarcinoma (ALISON) SUBSOLID NODULES Solitary pure ground-glass nodule * nodule size <6 mm - no CT follow-up required * nodule size >=6 mm - follow-up CT at 6-12 months, then every 2 years until 5 years Solitary part-solid nodule * nodule size <6 mm - no CT follow-up required * nodule size >=6 mm - follow-up CT at 3-6 months. If unchanged, and solid component remains <6 mm, then annual follow-up for 5 years Multiple subsolid nodules * nodule size <6 mm - follow-up CT at 3-6 months, consider further follow-up at 2 and 4 years if sta ble * nodule size >=6 mm - follow-up CT at 3-6 months, subsequent management based on the most suspiciou s nodule(s) ACT 112: Negative or not required by law. Electronically signed by: Ray Ruvalcaba M.D. 11/01/2020 2:04 PM
[2020-11-01] MEDS ORDERED: methylPREDNISolone 60 MG in SYRINGE 1 ML IV STA (14:07)
[2020-11-01] MEDS ORDERED: DOXYCYCLINE HYCLATE 100 MG CAP PO STA (14:08)
[2020-11-01] MEDS ORDERED: methylPREDNISolone 125 MG/2 ML VIAL ONE (14:24)
[2020-11-01] MEDS ORDERED: AZITHROMYCIN 250 MG TAB PO ONE (16:46)
--- NOTE | 2020-11-01 16:47 | History & Physical Report ---
Date of Service November 01, 2020 Assessment & Plan (1) COPD with acute exacerbation: Presents with 1 week of progressively worsening shortness of breath and wheezing with cough productive of clear sputum. No fevers and only with very mild leukocytosis. Covid-19 is negative D-dimer is mildly elevated CT angiogram chest negative for PE but consistent with bronchitis and emphysema Not hypoxic but significantly tachypneic and wheezing throughout, required 1 hour-long nebulizer upon admission -Bring in on observation for COPD exacerbation to medical/surgical floor -Supplemental O2 to keep pulse ox greater than 89%-not needing this at this time -Continue steroids with IV Solu-Medrol 60 mg every 12 hours -Was given 1 dose of doxycycline in the ER-will convert to azithromycin 500 mg x 1 today and then 250 mg once daily x4 more days Continue DuoNebs every 6 hours -Start Mucinex 1200 mg p.o. twice daily Continue home Breo Ellipta -Of note, blood cultures were drawn in the ER-should be followed (2) Restrictive lung disease: Noted to be mild on last PFTs in 2018 Follows with pulmonology (3) Type 2 diabetes mellitus: Most recent hemoglobin A1c in 06/2020 was 7.6% He is on metformin at home Hold home metformin and give NovoLog sliding scale Accu-Cheks before every meal at bedtime Expect hyperglycemia in the setting of corticosteroid use (4) Vitamin D insufficiency: Continue home vitamin D supplementation (5) BPH w urinary obs/LUTS: Continue home finasteride No acute issues (6) Hyperthyroidism: TSH here is normal Continue home methimazole 5 mg daily Thyroid uptake scan in 2018 was normal (7) GERD (gastroesophageal reflux disease): No acute issues Continue Protonix especially in the setting of steroid use (8) Pulmonary nodule: Noted to have 5 mm indeterminate nodule in the right upper lobe This should be followed with a CT scan of the chest in 12 months as he is high risk given history of smoking Referred to lung nodule program (9) Sinus tachycardia: Noted to have sinus tachycardia into the 1 teens, with PACs Likely secondary to acute pulmonary process PE ruled out Should improve as tachypnea and wheezing improve (10) DVT prophylaxis: Lovenox SQ Disposition-admit on observation for COPD exacerbation and tachypnea History of Present Illness Chief Complaint: Shortness of breath Primary Care Provider: Cristobal Galo MD This patient is a 80-year-old male with history of COPD and restrictive lung disease, hearing loss, melanoma of the right eyelid, diabetes, hypothyroidism, and GERD, who presents to the ER with 1 week of increasing shortness of breath and wheezing with cough productive of clear sputum. His shortness of breath got especially worse in the last 2 days. He has not been able to sleep lying flat for the last 2 days. He denies any fevers or chills. He denies any chest pain or leg swelling. He tried taking cough drops at home which did not help. He does use a Breo inhaler at home but no rescue inhalers. In the ER, he was found to be tachypneic but not hypoxic. He was diffusely wheezing. His Covid-19 test was negative. His D-dimer was mildly elevated at [address] angiogram of the chest was performed which was negative for PE, showed mild emphysema, mild central bronchial wall thickening with a few partially opacified bilateral lower lobe bronchi representing a bronchitis, and a 5 mm pulmonary nodule in the right upper lobe. He was given an hour-long nebulizer treatment in the ER as well as IV Solu- Medrol 125 mg. He reports this helped for about 15 minutes and then he continued to feel significantly short of breath. An ECG showed sinus tachycardia with PACs, rate 107, incomplete RBBB. He will be brought in on observation for acute COPD exacerbation and respiratory distress. Allergies Allergy/AdvReac Type Severity Reaction Status Date / Time Penicillins Allergy Severe SHORTNESS Verified 11/01/20 14:15 OF BREATH procaine Allergy Unknown FLUSHING Verified 11/01/20 14:15 AND SHORTNESS OF BREATH Home Medications Medication Instructions Recorded Confirmed Type aspirin 81 mg PO QAM #0 02/27/15 11/01/20 History albuterol sulfate [ProAir HFA] 1 puff INHALATION DIRECTED PRN 06/15/18 11/01/20 History cholecalciferol (vitamin D3) 3,000 unit PO QDD 11/01/20 11/01/20 History [Vitamin D3] finasteride 5 mg PO QAM 11/01/20 11/01/20 History fluticasone furoate-vilanterol 1 inh INHALATION HS 11/01/20 11/01/20 History [Breo Ellipta] metformin 500 mg PO QAM 11/01/20 11/01/20 History methimazole 5 mg PO QAM 11/01/20 11/01/20 History pantoprazole 40 mg PO QAM 11/01/20 11/01/20 History zinc 0 mg PO HS 11/01/20 11/01/20 History Past Med/Surg History Medical History (Updated 11/01/20 @ 21:33 by Estrlelita Michel MD) BPH (benign prostatic hyperplasia) Carcinoma of right eyelid Chronic obstructive pulmonary disease inhalers daily/prn COPD (chronic obstructive pulmonary disease) Cyst in hand right hand 06/2019 GERD (gastroesophageal reflux disease) Hearing loss History of colon polyps Hyperthyroidism Hypertriglyceridemia Kidney stones Melanoma Of the right eyelid Restrictive lung disease Tubulovillous adenoma Type 2 diabetes mellitus Vitamin D insufficiency Surgical History (Updated 11/01/20 @ 21:19 by Estrellita Michel MD) H/O: knee surgery RT TENDON REPAIR History of cardiac cath HEART CATH X 2/NO STENTS History of colon resection BENIGN History of colonoscopy History of ear surgery History of eyelid surgery right d/t cancer History of rectal surgery GROWTH REMOVAL History of tonsillectomy and adenoidectomy History of tooth extraction Hx of transurethral resection of prostate Family History Brother Type 2 diabetes mellitus Aunt Type 2 diabetes mellitus Myocardial infarction Social History Smoking Status: Former smoker Tobacco Type: Cigarettes Age Started Using Tobacco: 9; Age Quit Using Tobacco: 73; packs per day: 1; Years Smoked: 64; Second Hand Exposure: No; Hx Alcohol Use: No Hx Substance Use: No Preferred Language: Lithuanian Communication Ability: Effective Visual Impairment: Limited Hearing Ability: Use of Hearing Aid Machine Fur Cleaner Required: No Beliefs That Will Affect Care: None marital status: Current Living Situation: Spouse current occupational status: retired Other Information That Helps Us Care for You: No Feels Safe at Home: Yes Safety Concerns: Feels Safe At This Time Childhood Exposure to Second-Hand Smoke: Yes caffeine: Yes Dental Care, Regularly: No Physical Activity Frequency: Daily Physical Activity Frequency Comment: walk Seatbelt Use: always Sunscreen Use: No (stays out of the sun) Do you think of yourself as: straight/heterosexual Assistive Devices: Denture - Upper, Denture - Lower, Glasses and Hearing Aid - Right Review of Systems Review of Systems: All systems reviewed & are unremarkable except as noted in HPI & below Denies headaches, fevers, chills, sweats. Denies chest pain. No nausea or vomiting, no diarrhea. No blood in the stool. No abdominal pain. No difficulty with urination. Physical Exam Constitutional: WD/WN, vitals as above Eyes: + eyelid abnormality (Right mid upper lid absent) and + anicteric sclerae ENMT: external ear and nose normal, oropharynx normal Neck: trachea midline, no thyromegaly Respiratory: + tachypneic; no cough Auscultation: + rhonchi (Bilateral middle lung boo) and + wheezes (Diffuse inspiratory and expiratory wheezes); no crackles Cardiovascular: Rate/Rhythm: regular rhythm and + tachycardic Heart Sounds: no murmur Extremities: no edema Chest (Breasts): Chest: normal inspection of chest Gastrointestinal (Abdomen): normal bowel sounds, soft, nontender, no hepatosplenomegaly Musculoskeletal: Extremities: extremities normal to inspection; no cyanosis and no clubbing Skin: no rashes, warm and dry Neurologic: moves all extremities and awake; no focal motor deficits Psychiatric: A+Ox3, euthymic affect Lymphatic: no lymphedema Results & Data Results & Data ([facility]) Vital Signs (Past 12 Hours) Vital Signs Temp Pulse Pulse Resp BP BP Pulse Ox 11/01/20 15:30 110 H 22 123/88 95 11/01/20 14:30 110 H 22 125/89 94 11/01/20 13:09 106 H 20 167/86 H 99 11/01/20 12:14 101 H 24 95 11/01/20 12:02 93 11/01/20 11:54 93 11/01/20 11:43 37.1 C 101 H 28 H 140/74 94 Laboratory Results 11/01/20 11/01/20 11/01/20 Range/Units 20:48 20:00 18:21 WBC (4.8-10.8) K/uL RBC (4.7-6.1) M/uL Hgb (14.0-18.0) g/dL Hct (42-52) % MCV (80-100) fL MCH (25-34) pg MCHC (32-36) g/dL RDW Std Deviation (36.4-46.3) fL RDW Coeff of Thalia (11.5-14.5) % Plt Count (130-400) K/uL MPV (7.4-10.4) fL Immature Gran % (Auto) % Neut % (Auto) % Lymph % (Auto) % Irion % (Auto) % Eos % (Auto) % Baso % (Auto) % Neut # (Auto) (1.4-6.5) K/uL Lymph # (Auto) (1.2-3.4) K/uL Irion # (Auto) (0.11-0.59) K/uL Eos # (Auto) (0-0.5) K/uL Baso # (Auto) (0-0.2) K/uL Immature Gran # (Auto) (0.00-0.02) K/uL PT (9.0-12.0) Seconds INR (0.9-1.1) APTT (21.0-31.0) Seconds PTT Ratio D-Dimer (0-500) ug/L FEU Sodium (136-145) mmol/L Potassium (3.5-5.1) mmol/L Chloride (98-107) mmol/L Carbon Dioxide (21-32) mmol/L Anion Gap (3-11) BUN (7-18) mg/dl Creatinine (0.6-1.4) mg/dl Est Cr Clr Drug Dosing ml/min Est GFR ( Amer) Est GFR (Non-Af Amer) BUN/Creatinine Ratio (10-20) Glucose (70-99) mg/dl POC Glucose 218 H 184 H (70-99) mg/dl Lactate (0.4-2.0) mmol/L Calcium (8.5-10.1) mg/dl Magnesium (1.8-2.4) mg/dl Total Bilirubin (0.2-1) mg/dl AST (15-37) U/L ALT (12-78) U/L Alkaline Phosphatase (45-117) U/L Troponin I (0-0.045) ng/ml NT-Pro-B Natriuret Pep (0-1800) pg/ml Total Protein (6.4-8.2) gm/dl Albumin (3.4-5.0) gm/dl Globulin (2.5-4.0) gm/dl Albumin/Globulin Ratio (0.9-2) TSH (0.300-4.500) uIu/ml Urine Color Yellow Urine Appearance Clear (Clear) Urine pH 5.5 (4.5-7.5) Ur Specific [place] 1.038 H (1.000-1.030) Urine Protein 1+ H (Negative) Urine Glucose (UA) Negative (Negative) Urine Ketones Negative (Negative) Urine Blood Trace H (Negative) Urine Nitrite Negative (Negative) Urine Bilirubin Negative (Negative) Urine Urobilinogen Negative (Negative) Ur Leukocyte Esterase Negative (Negative) Urine WBC (Auto) 1-5 (0-5) /hpf Urine RBC (Auto) 0-4 (0-4) /hpf U Hyaline Cast (Auto) 0 (0-5) /lpf U Epithel Cells (Auto) 0-5 (0-5) /lpf Urine Bacteria (Auto) Negative (Negative) COVID-19 Eval Order SARS-CoV-2, RNA, NAAT (NEGATIVE) 11/01/20 11/01/20 11/01/20 Range/Units 12:13 12:13 12:11 WBC (4.8-10.8) K/uL RBC (4.7-6.1) M/uL Hgb (14.0-18.0) g/dL Hct (42-52) % MCV (80-100) fL MCH (25-34) pg MCHC (32-36) g/dL RDW Std Deviation (36.4-46.3) fL RDW Coeff of Thalia (11.5-14.5) % Plt Count (130-400) K/uL MPV (7.4-10.4) fL Immature Gran % (Auto) % Neut % (Auto) % Lymph % (Auto) % Irion % (Auto) % Eos % (Auto) % Baso % (Auto) % Neut # (Auto) (1.4-6.5) K/uL Lymph # (Auto) (1.2-3.4) K/uL Irion # (Auto) (0.11-0.59) K/uL Eos # (Auto) (0-0.5) K/uL Baso # (Auto) (0-0.2) K/uL Immature Gran # (Auto) (0.00-0.02) K/uL PT (9.0-12.0) Seconds INR (0.9-1.1) APTT (21.0-31.0) Seconds PTT Ratio D-Dimer (0-500) ug/L FEU Sodium (136-145) mmol/L Potassium (3.5-5.1) mmol/L Chloride (98-107) mmol/L Carbon Dioxide (21-32) mmol/L Anion Gap (3-11) BUN (7-18) mg/dl Creatinine (0.6-1.4) mg/dl Est Cr Clr Drug Dosing ml/min Est GFR ( Amer) Est GFR (Non-Af Amer) BUN/Creatinine Ratio (10-20) Glucose (70-99) mg/dl POC Glucose (70-99) mg/dl Lactate 1.5 (0.4-2.0) mmol/L Calcium (8.5-10.1) mg/dl Magnesium (1.8-2.4) mg/dl Total Bilirubin (0.2-1) mg/dl AST (15-37) U/L ALT (12-78) U/L Alkaline Phosphatase (45-117) U/L Troponin I (0-0.045) ng/ml NT-Pro-B Natriuret Pep (0-1800) pg/ml Total Protein (6.4-8.2) gm/dl Albumin (3.4-5.0) gm/dl Globulin (2.5-4.0) gm/dl Albumin/Globulin Ratio (0.9-2) TSH (0.300-4.500) uIu/ml Urine Color Urine Appearance (Clear) Urine pH (4.5-7.5) Ur Specific [place] (1.000-1.030) Urine Protein (Negative) Urine Glucose (UA) (Negative) Urine Ketones (Negative) Urine Blood (Negative) Urine Nitrite (Negative) Urine Bilirubin (Negative) Urine Urobilinogen (Negative) Ur Leukocyte Esterase (Negative) Urine WBC (Auto) (0-5) /hpf Urine RBC (Auto) (0-4) /hpf U Hyaline Cast (Auto) (0-5) /lpf U Epithel Cells (Auto) (0-5) /lpf Urine Bacteria (Auto) (Negative) COVID-19 Eval Order Covid19 IDNow at[facility] SARS-CoV-2, RNA, NAAT NEGATIVE (NEGATIVE) 11/01/20 11/01/20 11/01/20 Range/Units 11:56 11:56 11:56 WBC 10.89 H (4.8-10.8) K/uL RBC 5.17 (4.7-6.1) M/uL Hgb 13.9 L (14.0-18.0) g/dL Hct 42.8 (42-52) % MCV 82.8 (80-100) fL MCH 26.9 (25-34) pg MCHC 32.5 (32-36) g/dL RDW Std Deviation 45.7 (36.4-46.3) fL RDW Coeff of Thalia 15.1 H (11.5-14.5) % Plt Count 338 (130-400) K/uL MPV 10.3 (7.4-10.4) fL Immature Gran % (Auto) 0.2 % Neut % (Auto) 68.0 % Lymph % (Auto) 16.8 % Irion % (Auto) 7.3 % Eos % (Auto) 6.6 % Baso % (Auto) 1.1 % Neut # (Auto) 7.40 H (1.4-6.5) K/uL Lymph # (Auto) 1.83 (1.2-3.4) K/uL Irion # (Auto) 0.80 H (0.11-0.59) K/uL Eos # (Auto) 0.72 H (0-0.5) K/uL Baso # (Auto) 0.12 (0-0.2) K/uL Immature Gran # (Auto) 0.02 (0.00-0.02) K/uL PT 10.5 (9.0-12.0) Seconds INR 1.0 (0.9-1.1) APTT 25.8 (21.0-31.0) Seconds PTT Ratio 0.9 D-Dimer 550 H* (0-500) ug/L FEU Sodium 138 (136-145) mmol/L Potassium 4.1 (3.5-5.1) mmol/L Chloride 105 (98-107) mmol/L Carbon Dioxide 25 (21-32) mmol/L Anion Gap 7.0 (3-11) BUN 16 (7-18) mg/dl Creatinine 1.10 (0.6-1.4) mg/dl Est Cr Clr Drug Dosing 54.1 ml/min Est GFR ( Amer) 73.6 Est GFR (Non-Af Amer) 63.5 BUN/Creatinine Ratio 14.4 (10-20) Glucose 133 H (70-99) mg/dl POC Glucose (70-99) mg/dl Lactate (0.4-2.0) mmol/L Calcium 9.8 (8.5-10.1) mg/dl Magnesium 1.8 (1.8-2.4) mg/dl Total Bilirubin 0.5 (0.2-1) mg/dl AST 14 L (15-37) U/L ALT 31 (12-78) U/L Alkaline Phosphatase 117 (45-117) U/L Troponin I < 0.015 (0-0.045) ng/ml NT-Pro-B Natriuret Pep 99 (0-1800) pg/ml Total Protein 8.0 (6.4-8.2) gm/dl Albumin 4.0 (3.4-5.0) gm/dl Globulin 4.0 (2.5-4.0) gm/dl Albumin/Globulin Ratio 1.0 (0.9-2) TSH 1.790 (0.300-4.500) uIu/ml Urine Color Urine Appearance (Clear) Urine pH (4.5-7.5) Ur Specific [place] (1.000-1.030) Urine Protein (Negative) Urine Glucose (UA) (Negative) Urine Ketones (Negative) Urine Blood (Negative) Urine Nitrite (Negative) Urine Bilirubin (Negative) Urine Urobilinogen (Negative) Ur Leukocyte Esterase (Negative) Urine WBC (Auto) (0-5) /hpf Urine RBC (Auto) (0-4) /hpf U Hyaline Cast (Auto) (0-5) /lpf U Epithel Cells (Auto) (0-5) /lpf Urine Bacteria (Auto) (Negative) COVID-19 Eval Order SARS-CoV-2, RNA, NAAT (NEGATIVE) Diagnostic Findings Chest x-ray and chest CT images personally reviewed by me and agree with the following reports: XR chest 1V portable HISTORY: 80 years-old Male Dyspnea acute shortness of breath COMPARISON: Chest radiograph 04/06/2017 TECHNIQUE: Portable AP view of the chest FINDINGS: Cardiac silhouette is mildly enlarged. There is no pneumothorax or large pleural effusion. Ill-defined interstitial opacities of the mid and lower lung zones are new/progressed from comparison. Degenerative changes of the shoulders and spine. IMPRESSION: Cardiomegaly with mild bilateral reticular opacities are new/progressed from comparison. Pulmonary vascular congestion versus a mild nonspecific pneumonitis considered. CHEST CTA for PULMONARY ARTERIES CT DOSE: 533.65 mGy.cm HISTORY: PE, shortness of breath, +DIMER TECHNIQUE: Multiaxial CT images of the chest were performed following the intravenous administration of contrast to evaluate the pulmonary arteries. Maximal intensity projection images were also obtained. A dose lowering technique was utilized adhering to the principles of ALARA. COMPARISON STUDY: None. FINDINGS: Normal caliber thoracic aorta with no evidence for dissection. Nondiagnostic evaluation of the bilateral lower lobe subsegmental pulmonary arteries due to the motion artifact. However, the remaining pulmonary arteries show no filling defects to suggest pulmonary embolus. The heart is normal in size. No pleural or pericardial effusions. Limited views the upper abdomen demonstrate normal liver, spleen, and adrenal glands. There is a single prominent right hilar lymph node measuring 1 cm in short axis diameter. The remaining mediastinal and hilar lymph nodes measure subcentimeter and do not meet CT criteria for pathologic involvement. Normal esophagus. No suspicious lytic or blastic osseous lesions. No pneumothorax. Mild respiratory motion artifact. There is mild central bronchial wall thickening. There is mild emphysema. A few partially opacified bilateral lower lobe segmental bronchi. No focal lung consolidations to suggest pneumonia. No evidence for pulmonary edema. There is a 5 mm indeterminate pulmonary nodule within the right upper lobe anteriorly on image 149. IMPRESSION: 1. No evidence for pulmonary embolus with limitations as described above. 2. Mild emphysema. 3. Mild central bronchial wall thickening with a few partially opacified bilateral lower lobe bronchi. This may represent a bronchitis. 4. A 5 mm indeterminate pulmonary nodule within the right upper lobe. Code Status & VTE Plan VTE Prophylaxis Plan VTE Prophylaxis will be ordered: Yes PG Care Time/CCT Total # of Minutes Spent Total Time Spent with Patient: Total time spent is greater than 50% in coordination of care (as documented) at patient's floor/unit and/or counseling patient: Coding Level of Care Code 94143 OBS Care - Level 3 Diagnoses COPD with acute exacerbation J44.1 Restrictive lung disease J98.4 Type 2 diabetes mellitus E11.9 Vitamin D insufficiency E55.9 BPH w urinary obs/LUTS N40.1; N13.8 Hyperthyroidism E05.90 GERD (gastroesophageal reflux disease) K21.9 Pulmonary nodule R91.1 Sinus tachycardia R00.0 DVT prophylaxis Z29.9
[2020-11-01] MEDS ORDERED: ONDANSETRON INJ 2 MG/ML 2 ML VIAL IV PRN (17:59)
[2020-11-01] MEDS ORDERED: ACETAMINOPHEN 325 MG TAB PO PRN (17:59)
[2020-11-01] MEDS ORDERED: DEXTROSE 50% 50 ML SYRINGE IV PRN (17:59)
[2020-11-01] MEDS ORDERED: ALBUT/IPRATROP 3MG/0.5MG NEB 3 ML VIAL NEB PRN (17:59)
[2020-11-01] MEDS ORDERED: GLUCOSE 10 TABS/TUBE PO PRN (17:59)
[2020-11-01] MEDS ORDERED: CARBOHYDRATES FOR HYPOGLYCEMIA PO PRN (17:59)
[2020-11-01] MEDS ORDERED: POLYETHYLENE (MIRALAX) 17 GM PACK PO PRN (17:59)
[2020-11-01] MEDS ORDERED: GLUCOSE 40% GEL 15 GM TUBE PO PRN (17:59)
[2020-11-01] MEDS ORDERED: GLUCAGON FOR INJ 1 MG VIAL SQ PRN (17:59)
[2020-11-01] MEDS ORDERED: ENOXAPARIN INJ 40 MG/0.4 ML SYR SQ SCH (19:00)
[2020-11-01] MEDS ORDERED: ALBUT/IPRATROP 3MG/0.5MG NEB 3 ML VIAL INH SCH (19:00)
[2020-11-01 20:38] LABS: Appearance Urine Clear (Clear); Bacteria Urine Automated Negative (Negative); Bilirubin Urine Negative (Negative); Blood Urine Trace (Negative); Cast Urine Automated 0 /lpf (0-5); Color Urine Yellow; Epithelial Cell Urine Auto 0-5 /lpf (0-5); Glucose Urine UA Negative (Negative); Ketones Urine Negative (Negative); Leukocyte Esterase Urine Negative (Negative); Nitrite Urine Negative (Negative); Protein Urine 1+ (Negative); RBC Urine Automated 0-4 /hpf (0-4); Specific Gravity Urine 1.038 (1.000-1.030); Urobilinogen Urine Negative (Negative); pH Urine 5.5 (4.5-7.5)
[2020-11-01] MEDS: guaiFENesin 600 MG TABCR PO SCH (20:46)
[2020-11-01] MEDS: INSULIN ASPART 100 UNITS/ML 3 ML PEN SC SCH (20:48)
[2020-11-01] MEDS ORDERED: ZINC SULFATE 220 MG CAPSULE PO SCH (21:00)
[2020-11-01] MEDS ORDERED: FLUTICASONE/VILANTEROL 100/25MCG 14 PUFFS/INHALER INH SCH (21:00)
[2020-11-01] MEDS ORDERED: LEVALBUTEROL HCL 1.25 MG/3 ML NEB NEB PRN (21:10)
[2020-11-01] MEDS: methylPREDNISolone 60 MG in SYRINGE 0 ML IV SCH (21:28)
--- NOTE | 2020-11-01 23:11 | Electrocardiogram Report ---
Test Reason : Blood Pressure : / mmHG Vent. Rate : 107 BPM Atrial Rate : 107 BPM P-R Int : 162 ms QRS Dur : 108 ms QT Int : 338 ms P-R-T Axes : 089 -03 045 degrees QTc Int : 451 ms Poor data quality, interpretation may be adversely affected Sinus tachycardia with Premature atrial complexes Incomplete right bundle branch block Borderline ECG When compared with ECG of 06-APR-2017 13:53, Incomplete right bundle branch block has replaced Right bundle branch block Confirmed by Junior Randall ([id number]) on 11/01/2020 11:11:03 PM Referred By: REFERRED SELF Confirmed By:Junior Randall
[2020-11-02] MEDS: IPRATROPIUM BROMIDE NEB SOLN 0.02% 2.5 ML VIAL INH SCH ×3 (00:45→13:03)
[2020-11-02] MEDS: LEVALBUTEROL 1.25MG/0.5ML NEB INH SCH ×3 (00:46→13:03)
[2020-11-02] MEDS ORDERED: XOPENEX/ATROVENT 1.25mg/0.5MG NEB COMBO NEB SCH (01:00)
[2020-11-02 06:45] LABS: Calcium 9.1 mg/dl (8.5-10.1); Creatinine Clr Calc Pharmacy 49.6 ml/min; Est GFR (African American) 66.3; Est GFR (Non-African American) 57.2; Potassium 4.1 mmol/L (3.5-5.1)
[2020-11-02 07:26] LABS: Estimated Average Glucose 157 mg/dl; Hemoglobin A1C 7.1 % (4.5-5.6)
[2020-11-02] MEDS: guaiFENesin 600 MG TABCR PO SCH (08:12)
[2020-11-02] MEDS ORDERED: AZITHROMYCIN 250 MG TAB PO SCH (09:00)
[2020-11-02] MEDS ORDERED: ASPIRIN 81 MG ECTAB PO SCH (09:00)
[2020-11-02] MEDS ORDERED: methIMAzole 5 MG TABLET PO SCH (09:00)
[2020-11-02] MEDS ORDERED: FINASTERIDE 5 MG TAB PO SCH (09:00)
[2020-11-02] MEDS ORDERED: PANTOprazole 40 MG TAB PO SCH (09:00)
[2020-11-02] MEDS: methylPREDNISolone 60 MG in SYRINGE 0 ML IV SCH (09:05)
[2020-11-02] MEDS: INSULIN ASPART 100 UNITS/ML 3 ML PEN SC SCH ×2 (09:06→13:26)
--- NOTE | 2020-11-02 10:44 | Hospitalist Progress Note ---
Date of Service November 02, 2020 Assessment & Plan Admission and Anticipated Discharge Date Admission Date: November 01, 2020 Results & Data Results & Data ([facility]) Vital Signs (Past 12 Hours) Vital Signs Temp Pulse Resp BP Pulse Ox 11/02/20 07:40 36.4 C L 97 H 18 137/82 93 11/02/20 07:12 97 H 18 93 11/02/20 00:46 97 H 18 93 11/01/20 23:11 36.4 C L 109 H 20 136/83 93
[2020-11-02] MEDS ORDERED: COUGH DROP (SUGAR FREE) LOZ 24 LOZ/1 BOX BUCCAL PRN (12:51)
--- NOTE | 2020-11-02 14:26 | Discharge Summary ---
Date of Service November 02, 2020 Admission HPI Per Admitting Provider This patient is a 80-year-old male with history of COPD and restrictive lung disease, hearing loss, melanoma of the right eyelid, diabetes, hypothyroidism, and GERD, who presents to the ER with 1 week of increasing shortness of breath and wheezing with cough productive of clear sputum. His shortness of breath got especially worse in the last 2 days. He has not been able to sleep lying flat for the last 2 days. He denies any fevers or chills. He denies any chest pain or leg swelling. He tried taking cough drops at home which did not help. He does use a Breo inhaler at home but no rescue inhalers. In the ER, he was found to be tachypneic but not hypoxic. He was diffusely wheezing. His Covid-19 test was negative. His D-dimer was mildly elevated at [address] angiogram of the chest was performed which was negative for PE, showed mild emphysema, mild central bronchial wall thickening with a few partially opacified bilateral lower lobe bronchi representing a bronchitis, and a 5 mm pulmonary nodule in the right upper lobe. He was given an hour-long nebulizer treatment in the ER as well as IV Solu- Medrol 125 mg. He reports this helped for about 15 minutes and then he continued to feel significantly short of breath. An ECG showed sinus tachycardia with PACs, rate 107, incomplete RBBB. He will be brought in on observation for acute COPD exacerbation and respiratory distress. Admission Exam Per Admitting Provider Constitutional: WD/WN, vitals as above Eyes: + eyelid abnormality (Right mid upper lid absent) and + anicteric sclerae ENMT: external ear and nose normal, oropharynx normal Neck: trachea midline, no thyromegaly Respiratory: + tachypneic; no cough Auscultation: + rhonchi (Bilateral middle lung boo) and + wheezes (Diffuse inspiratory and expiratory wheezes); no crackles Cardiovascular: Rate/Rhythm: regular rhythm and + tachycardic Heart Sounds: no murmur Extremities: no edema Chest (Breasts): Chest: normal inspection of chest Gastrointestinal (Abdomen): normal bowel sounds, soft, nontender, no hepatosplenomegaly Musculoskeletal: Extremities: extremities normal to inspection; no cyanosis and no clubbing Skin: no rashes, warm and dry Neurologic: moves all extremities and awake; no focal motor deficits Psychiatric: A+Ox3, euthymic affect Lymphatic: no lymphedema Principal Diagnosis COPD Exacerbation Discharge Exam Constitutional: walking around room in no distress on room air Eyes: EOMI, pupils equal and reactive bilaterally, no scleral icterus Cardiac: RRR, no murmurs, gallops or rubs. Normal S1, S2 Pulm: CTA BL, mild end expiratory wheeze, no rhonchi, crackles or rubs, moving air well throughout both lungs Abd: soft, nontender, nondistended, normal bowel sounds, no rebound or guarding Extremities: 2+ peripheral pulses, no edema Neuro: no focal deficits, moving all 4 limbs, A&Ox3 Discharge Data Allergies Allergy/AdvReac Type Severity Reaction Status Date / Time Penicillins Allergy Severe SHORTNESS Verified 11/01/20 14:15 OF BREATH procaine Allergy Unknown FLUSHING Verified 11/01/20 14:15 AND SHORTNESS OF BREATH Consultations 11/01/20 14:20 ED Decision to Admit Stat 11/01/20 17:59 Consult Case Management - Discharge Planning Routine Consult Lung Nodule Program Routine Ordered Studies 11/01/20 12:57 CT angio chest PE protocol Stat Hospital Course (1) COPD with acute exacerbation: Mr. Mcmahan is a pleasant 80 yo M with a hx of COPD, DM2, hyperthyroidism and GERD who presented to the ER with acute shortness of breath and was admitted for a COPD exacerbation. Workup was negative for any signs of pneumonia or obstruction. He improved remarkably by the next morning having received 60 mg IV methylpredisolone in the ER. He was able to come off oxygen supplementation and scheduled nebulizer treatments. He was discharged on his home inhaler regimen (Breo Ellipta + Albuterol rescue) with a 4 day 40 mg Prednisone burst and 4 more days of Azithromycin to finish. We discussed moving his appointment with pulmonology up from March to get PFTs and make sure he doesn't need additional medications for control. All other conditions were controlled per home regimen. Total Time Total Time Spent Total Time Spent (In Minutes): see attending attestation Discharge Plan Discharge Items Patient Disposition: Home - Self-Care Reason For Visit: COPD EXACERBATION Discharge Diagnosis: COPD Exacerbation Activity: Resume your previous activity Non-emergency contact: Primary Care Provider Call non-emergency contact if: your symptoms worsen and your temperature is above 101 Follow-up/Referrals: Cristobal Galo MD [Primary Care Provider] - Diet: Carb Consistent or DM2 Addtl Attending Provider Instructions: You were admitted to the hospital for shortness of breath found to be secondary to a COPD exacerbation. You improved after receiving IV steroids and nebulizer treatments. You will need to continue taking the Azithromycin for the next 3 days to reduce inflammation in the lungs. You were also discharged on a burst of steroids that will help maintain low inflammation in the lungs. These steroids may cause your blood sugar level to be elevated. Make sure to seek medical attention if you feel weak, confused, or tired with a blood sugar higher than 300. New Medications: Azithromycin 250 mg x 3 days, Prednisone 40 mg x 5 days. Continue taking your Breo Ellipta inhaler daily as before. Your albuterol rescue inhaler should be used 2 puffs at a time, repeated for acute shortness of breath. If you are using your rescue inhaler frequently, contact your PCP or get medical care in an ER. Given your exacerbation, you may need escalation of your inhaler therapy. 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 If you experience fevers, worsening cough, trouble breathing, you may have a pneumonia overlying your exacerbation. If this occurs, seek medical attention. Pending Studies at Discharge: No Stand-Alone Forms: My [facility], Smoking Cessation Medications and DC Order Prescriptions: New azithromycin 250 mg Tablet 250 mg PO QAM 3 Days Qty: 3 RF: 0 prednisone 20 mg tablet 40 mg PO DAILY 5 Days Qty: 10 RF: 0 Continued aspirin 81 mg Tablet,Chewable 81 mg PO QAM Qty: 0 RF: 0 albuterol sulfate [ProAir HFA] 90 mcg/actuation Hfa Aerosol Inhaler 1 puff Inhalation DIRECTED PRN (Reason: Shortness Of Breath) RF: 0 zinc 50 mg Tablet 0 mg PO HS RF: 0 cholecalciferol (vitamin D3) [Vitamin D3] 25 mcg (1,000 unit) Tablet 3,000 unit PO QDD RF: 0 pantoprazole 40 mg tablet,delayed release (DR/EC) 40 mg PO QAM RF: 0 methimazole 5 mg tablet 5 mg PO QAM RF: 0 metformin 500 mg tablet extended release 24 hr 500 mg PO QAM RF: 0 finasteride 5 mg tablet 5 mg PO QAM RF: 0 Breo Ellipta 100-25 mcg/dose blister with device 1 inh inhalation HS RF: 0 Discharge Orders: Discharge Order (Routine); Ordered 11/02/20 Ordered By: Denita Babb/Other Patient Handouts: Chest and Lung Problems, Understanding Deep Vein Thrombosis, ED Pulmonary Nodule, Solitary Admission Data Admit Date/Time: 11/01/20 16:46 Attending Provider: Aydee Paredes Admit Provider: Estrellita Michel Primary Care Provider: Cristobal Galo Other Providers: Estrellita Michel ; Denita Lyons Other Interventions: Discharge Summary Assessment (RN) Last Done: 11/02/20 14:23 Supervising Physician Co-Signing Physician Notes Resident Physician Supervision Note: I independently interviewed and examined the patient and verified the abdi history and physical, reviewed labs and image studies, discussed the case with the resident Dr. Lyons and agree with the findings and care plan. Resident Activity Tracking Resident Involvement: Resident Care Provided Care Provided: Adult Hospital Medicine
[2020-11-02] MEDS ORDERED: CHOLECALCIFEROL 1,000 UNITS 25 MCG TAB PO SCH (16:30)
--- NOTE | 2020-11-02 22:01 | Electrocardiogram Report ---
Test Reason : Blood Pressure : / mmHG Vent. Rate : 116 BPM Atrial Rate : 116 BPM P-R Int : 148 ms QRS Dur : 114 ms QT Int : 342 ms P-R-T Axes : 075 -19 025 degrees QTc Int : 475 ms Sinus tachycardia with Premature atrial complexes Incomplete right bundle branch block Borderline ECG When compared with ECG of 01-NOV-2020 11:52, No significant change was found Confirmed by Alok Peña ([id number]) on 11/02/2020 10:00:56 PM Referred By: REFERRED SELF Confirmed By:Alok Peña
== END 2020-11-02 15:09 | disposition home or self-care (01) ==
LOC: 3N 11:37 → ED 11:37 → SUATTDRO 16:46 → 3N 17:21

== ENCOUNTER 2020-12-03 10:44 | Observation (INO) ==
[2020-12-03] MEDS ORDERED: SODIUM CHLORIDE 0.9% 500 ML IV ONE ×2 (11:13→11:57)
[2020-12-03] MEDS ORDERED: ALBUT/IPRATROP 3MG/0.5MG NEB 3 ML VIAL NEB ONE (11:13)
[2020-12-03] MEDS ORDERED: DEXAMETHASONE SOD INJ 10 MG/ML VIAL IV ONE (11:13)
[2020-12-03] MEDS ORDERED: guaiFENesin 600 MG TABCR PO STA (11:13)
[2020-12-03 11:14] LABS: Basophils # (auto) 0.13 K/uL (0-0.2); Basophils % (auto) 1.2 %; Eosinophils # (auto) 1.06 K/uL (0-0.5); Eosinophils % (auto) 9.6 %; Hematocrit (blood only) 43.6 % (42-52); Hemoglobin 14.3 g/dL (14.0-18.0); Immature Granulocytes # (auto) 0.04 K/uL (0.00-0.02); Immature Granulocytes % (auto) 0.4 %; Lymphocytes # (auto) 1.95 K/uL (1.2-3.4); Lymphocytes % (auto) 17.7 %; Mean Corpuscular Hemoglobin 27.1 pg (25-34); Mean Corpuscular Hgb Conc 32.8 g/dL (32-36); Mean Corpuscular Volume 82.6 fL (80-100); Mean Platelet Volume 10.5 fL (7.4-10.4); Monocytes % (auto) 8.2 %; Neutrophils # (auto) 6.96 K/uL (1.4-6.5); Neutrophils % (auto) 62.9 %; Platelet Count 352 K/uL (130-400); RDW Coefficient of Variation 16.1 % (11.5-14.5); RDW Standard Deviation 48.7 fL (36.4-46.3); Red Blood Count 5.28 M/uL (4.7-6.1); White Blood Count 11.04 K/uL (4.8-10.8)
--- NOTE | 2020-12-03 11:15 | XRay Report ---
XR chest 1V portable CLINICAL HISTORY: Shortness of breath COMPARISON STUDY: 11/01/2020 FINDINGS: The heart is the upper limits of normal in size. There is no failure. There is no focal pul monary consolidation. There are no pleural effusions.[ IMPRESSION: No active disease in the chest. ACT 112: Negative or not required by law. Electronically signed by: Farhan Haider M.D. 12/03/2020 11:14 AM
[2020-12-03 11:24] LABS: Partial Thromboplastin Ratio 0.9; Partial Thromboplastin Time 23.4 Seconds (21.0-31.0); Prothrombin Time 9.8 Seconds (9.0-12.0)
[2020-12-03 11:30] LABS: Alanine Aminotransferase 41 U/L (12-78); Albumin Level 4.2 gm/dl (3.4-5.0); BUN Creatinine Ratio 16.1 (10-20); Blood Urea Nitrogen 23 mg/dl (7-18); Calcium 9.3 mg/dl (8.5-10.1); Carbon Dioxide 25 mmol/L (21-32); Chloride 108 mmol/L (98-107); Creatinine Clr Calc Pharmacy 38.1 ml/min; Est GFR (African American) 54.1; Est GFR (Non-African American) 46.6; Glucose 107 mg/dl (70-99); Magnesium 1.8 mg/dl (1.8-2.4); Potassium 4.3 mmol/L (3.5-5.1); Sodium 140 mmol/L (136-145)
[2020-12-03 11:32] LABS: Base Excess VBG -0.9 mEq/L; Oxygen Saturation VBG 61.8 %; pH VBG 7.38 (7.36-7.41)
[2020-12-03 11:35] LABS: Alkaline Phosphatase 148 U/L (45-117); Aspartate Aminotransferase 21 U/L (15-37); Bilirubin,Total 0.3 mg/dl (0.2-1); Total Protein 8.2 gm/dl (6.4-8.2); Troponin I < 0.015 ng/ml (0-0.045)
--- NOTE | 2020-12-03 11:39 | Emergency Department Note ---
Impression & Plan Acute exacerbation of chronic obstructive pulmonary disease (COPD), Renal insufficiency, Shortness of breath at rest ED Provider Note NAME: CHE MCMULLEN AGE: 80 SEX: M ARRIVES VIA: Walk-In INFORMANT: Patient, ED PROVIDER(S): Haider Elder MD CHIEF COMPLAINT: Shortness of breath PLAN: Disposition: Admit MEDICAL DECISION MAKING: The patient is a pleasant 80-year-old gentleman with a past medical history of COPD/restrictive lung disease, type 2 diabetes, hypertension, hyperlipidemia, hyper thyroidism who presents emergency department with worsening shortness of breath he reports has been ongoing for the past couple of weeks but worsening over the past week. He reports being admitted to [facility] in October for similar flare treated with azithromycin and prednisone. He denies any fevers, chills, nausea, vomiting, diarrhea, urinary symptoms. He denies any known close COVID-19 contacts. On arrival the patient is moderately dyspneic appearing with increased work of breathing,, 96% on room air, heart rate in the 100s and vital signs otherwise stable. He appears clinically dry. He has scattered wheezes with prolonged expiratory phase. EKG without overt acute ischemia. Chest x-ray negative for acute cardiopu lmonary process. WBC 11, nonspecific. H/H and platelets within normal limits. VBG is unremarkable without hypercapnia. Chemistry without metabolic acidosis. Creatinine 1.4 with BUN 23 consistent with the patient's clinically dry appearance. LFTs unremarkable. Troponin negative/undetectable. BNP within normal limits. COVID-19 RNA, NAAT was negative. Upon reevaluation patient did feel improvement after initial treatment with IV fluid hydration, guaifenesin, dexamethasone and continuous DuoNeb. However despite improved air movement he still exhibits significant diffuse wheezes and dyspnea at rest O2 saturation does remain 95%. Given the patient's persistent dyspnea which she reports is worse from his baseline he did agree with plan for admission. Will treat with doxycycline for COPD exacerbation. Dr. Wright, [facility] hospitalist, to evaluate the patient for admission. Triage Nursing notes reviewed and agree them. Prior medical records reviewed Vital Signs: reviewed and remarkable for no significant abnormalities Differential diagnosis: Reactive airway disease, pneumonia, pneumothorax, COPD, CHF, infections, cardiac ischemia, pulmonary embolism, musculoskeletal, gastrointestinal, as well as other pathologies. ER treatment provided: See below. Diagnostics interpreted by me: ECG: Sinus tachycardia with PACs, 115 bpm, incomplete right bundle branch block, nonspecific ST and T wave abnormality, no overt ST elevation. Cardiac Monitoring: An order for continuous cardiac monitoring was placed and de monstrated Sinus tachycardia with PACs, 115 bpm. Laboratory studies: See below Imaging studies: XR chest 1V portable CLINICAL HISTORY: Shortness of breath COMPARISON STUDY: 11/01/2020 FINDINGS: The heart is the upper limits of normal in size. There is no failure. There is no focal pulmonary consolidation. There are no pleural effusions.[ IMPRESSION: No active disease in the chest. ACT 112: Negative or not required by law. Electronically signed by: Farhan Haider M.D. 12/03/2020 11:14 AM Dictated: 12/03/201113Transcribed: 12/03/201113 Consultation(s): Dr. Wright, [facility] hospitalist. HPI: The patient is a pleasant 80-year-old gentleman with a past medical history of COPD/restrictive lung disease, type 2 diabetes, hypertension, hyperlipidemia, hyper thyroidism who presents emergency department with worsening shortness of breath he reports has been ongoing for the past couple of weeks but worsening over the past week. He reports being admitted to [facility] in October for similar flare treated with azithromycin and prednisone. He denies any fevers, chills, nausea, vomiting, diarrhea, urinary symptoms. He denies any known close COVID-19 contacts. ROS: See above HPI for pertinent positives & negatives. A total of 10 systems reviewed and were otherwise negative. PAST MEDICAL HISTORY:See Below PAST SURGICAL HISTORY:See Below FAMILY HISTORY:See Below SOCIAL HISTORY:See Below HOME MEDICATIONS:See Below ALLERGIES:See Below VITALS:See Below PHYSICAL EXAMINATION: GENERAL: Awake, alert, fatigued-appearing, in no distress HENT: Normocephalic, atraumatic. Oropharynx unremarkable. EYES: Normal conjunctiva. Sclera non-icteric. NECK: Supple. No nuchal rigidity. FROM. No JVD. RESPIRATORY: Moderately dyspneic appearing with increased work of breathing, scattered wheezes with prolonged expiratory phase. CARDIAC: Tachycardic rate, normal rhythm. Extremities warm and well perfused. Pulses equal. ABDOMEN: Soft, non-distended. No tenderness to palpation. No rebound or guarding. No masses. RECTAL: Deferred. MUSCULOSKELETAL: Chest examination reveals no tenderness. The back is symmetrical on inspection without obvious abnormality. There is no CVA tenderness to palpation. No joint edema. LOWER EXTREMITIES: Calves are equal size bilaterally and non-tender. No edema. No discoloration. NEURO: Normal sensorium. No sensory or motor deficits noted. SKIN: No rash or jaundice noted. aHider Elder MD Past Med/Surg History Medical History BPH (benign prostatic hyperplasia) Carcinoma of right eyelid Chronic obstructive pulmonary disease inhalers daily/prn COPD (chronic obstructive pulmonary disease) Cyst in hand right hand 06/2019 GERD (gastroesophageal reflux disease) Hearing loss History of colon polyps Hyperthyroidism Hypertriglyceridemia Kidney stones Melanoma Of the right eyelid Restrictive lung disease Tubulovillous adenoma Type 2 diabetes mellitus Vitamin D insufficiency Surgical History H/O: knee surgery RT TENDON REPAIR History of cardiac cath HEART CATH X 2/NO STENTS History of colon resection BENIGN History of colonoscopy History of ear surgery History of eyelid surgery right d/t cancer History of rectal surgery GROWTH REMOVAL History of tonsillectomy and adenoidectomy History of tooth extraction Hx of transurethral resection of prostate Family History Brother Type 2 diabetes mellitus Aunt Type 2 diabetes mellitus Myocardial infarction Social History Smoking Status: Never smoker Tobacco Type: Cigarettes Age Started Using Tobacco: 9; Age Quit Using Tobacco: 73; packs per day: 1; Years Smoked: 64; Second Hand Exposure: No; Hx Alcohol Use: No Hx Substance Use: No Preferred Language: German Communication Ability: Effective Visual Impairment: Limited Hearing Ability: Use of Hearing Aid 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 Required: No Beliefs That Will Affect Care: None marital status: Current Living Situation: Spouse current occupational status: retired Other Information That Helps Us Care for You: No Feels Safe at Home: Yes Safety Concerns: Feels Safe At This Time Childhood Exposure to Second-Hand Smoke: Yes caffeine: Yes Dental Care, Regularly: No Physical Activity Frequency: Daily Physical Activity Frequency Comment: walk Seatbelt Use: always Sunscreen Use: No (stays out of the sun) Do you think of yourself as: straight/heterosexual Assistive Devices: Denture - Upper, Denture - Lower, Glasses and Hearing Aid - Right Allergies Allergies Allergy/AdvReac Type Severity Reaction Status Date / Time Penicillins Allergy Severe SHORTNESS Verified 12/03/20 12:53 OF BREATH procaine Allergy Unknown FLUSHING Verified 12/03/20 12:53 AND SHORTNESS OF BREATH Home Meds Home Medications Medication Instructions Recorded Confirmed Breo Ellipta 1 inh INHALATION HS 11/01/20 12/03/20 cholecalciferol (vitamin D3) 2,000 unit PO QAM 11/01/20 12/03/20 [Vitamin D3] finasteride 5 mg PO QAM 11/01/20 12/03/20 metformin 500 mg PO QAM 11/01/20 12/03/20 methimazole 5 mg PO QAM 11/01/20 12/03/20 pantoprazole 40 mg PO QAM 11/01/20 12/03/20 zinc 0 mg PO QAM 11/01/20 12/03/20 aspirin [Aspir-81] 81 mg PO QAM 12/03/20 12/03/20 Previous Rx's Medication Instructions Recorded OneTouch Ultra Blue Test Strip #100 ea NS 11/07/20 OneTouch Ultra2 Meter #1 ea NS 11/07/20 OneTouch UltraSoft Lancets #100 ea NS 11/07/20 ipratropium 0.5 mg-albuterol 3 mg 3 ml INHALATION Q6H PRN #180 ml 11/07/20 (2.5 mg base)/3 mL nebulization soln nebulizers #1 ea 11/07/20 albuterol sulfate 90 mcg/actuation 1 puff INHALATION DIRECTED PRN 11/20/20 aerosol inhaler #18 g Results & Data (ED) Vital Signs Vital Signs - 24 hr 12/03/20 10:48 12/03/20 10:56 12/03/20 11:03 Temperature 36.5 C Temperature Source Oral Pulse Rate 110 H 103 H Pulse Rate [Right Finger] Pulse Rate from SpO2 Sensor 95 H Pulse Rhythm Regular Pulse Rhythm [Right Finger] Pulse Strength Normal Pulse Strength [Right Finger] Respiratory Rate 26 H 20 Respiratory Effort / Characteristics Grunting Labored Accessory Muscle Use Labored Respiratory Depth Normal Respiratory Pattern Rapid/Deep Blood Pressure 172/105 H 143/92 H Blood Pressure [Right Arm] Blood Pressure Mean 127 109 Blood Pressure Mean [Right Arm] Blood Pressure Position Sitting Blood Pressure Position [Right Arm] Pulse Oximetry 94 94 95 Oxygen Delivery Method Room Air Room Air Sepsis Recent Fever Within 48 Hours No Sepsis New/Unexplained Change in Mental Status No Sepsis Action Taken by Nursing No Action Required 12/03/20 11:30 12/03/20 11:57 12/03/20 13:00 Temperature Temperature Source Pulse Rate Pulse Rate [Right Finger] 105 H 97 H 117 H Pulse Rate from SpO2 Sensor Pulse Rhythm Pulse Rhythm [Right Finger] Regular Pulse Strength Pulse Strength [Right Finger] Normal Respiratory Rate 20 16 24 Respiratory Effort / Characteristics Spontaneous Short of Breath Non-Labored Respiratory Depth Normal Respiratory Pattern Regular Blood Pressure Blood Pressure [Right Arm] 143/92 H 150/80 H Blood Pressure Mean Blood Pressure Mean [Right Arm] 109 103 Blood Pressure Position Blood Pressure Position [Right Arm] Sitting Pulse Oximetry 96 100 95 Oxygen Delivery Method Room Air Room Air Room Air Sepsis Recent Fever Within 48 Hours Sepsis New/Unexplained Change in Mental Status Sepsis Action Taken by Nursing 12/03/20 14:30 Temperature Temperature Source Pulse Rate Pulse Rate [Right Finger] 109 H Pulse Rate from SpO2 Sensor Pulse Rhythm Pulse Rhythm [Right Finger] Regular Pulse Strength Pulse Strength [Right Finger] Normal Respiratory Rate 24 Respiratory Effort / Characteristics Non-Labored Respiratory Depth Normal Respiratory Pattern Regular Blood Pressure Blood Pressure [Right Arm] 135/108 H Blood Pressure Mean Blood Pressure Mean [Right Arm] 117 Blood Pressure Position Blood Pressure Position [Right Arm] Pulse Oximetry 95 Oxygen Delivery Method Room Air Sepsis Recent Fever Within 48 Hours Sepsis New/Unexplained Change in Mental Status Sepsis Action Taken by Nursing Laboratory Data Result diagrams: 12/03/20 11:03 12/03/20 11:03 Lab Results 12/03/20 12/03/20 12/03/20 Range/Units 11:03 11:03 11:03 WBC 11.04 H (4.8-10.8) K/uL RBC 5.28 (4.7-6.1) M/uL Hgb 14.3 (14.0-18.0) g/dL Hct 43.6 (42-52) % MCV 82.6 (80-100) fL MCH 27.1 (25-34) pg MCHC 32.8 (32-36) g/dL RDW Std Deviation 48.7 H (36.4-46.3) fL RDW Coeff of Thalia 16.1 H (11.5-14.5) % Plt Count 352 (130-400) K/uL MPV 10.5 H (7.4-10.4) fL Immature Gran % (Auto) 0.4 % Neut % (Auto) 62.9 % Lymph % (Auto) 17.7 % Baldwin % (Auto) 8.2 % Eos % (Auto) 9.6 % Baso % (Auto) 1.2 % Neut # (Auto) 6.96 H (1.4-6.5) K/uL Lymph # (Auto) 1.95 (1.2-3.4) K/uL Baldwin # (Auto) 0.90 H (0.11-0.59) K/uL Eos # (Auto) 1.06 H (0-0.5) K/uL Baso # (Auto) 0.13 (0-0.2) K/uL Immature Gran # (Auto) 0.04 H (0.00-0.02) K/uL PT 9.8 (9.0-12.0) Seconds INR 1.0 (0.9-1.1) APTT 23.4 (21.0-31.0) Seconds PTT Ratio 0.9 VBG pH (7.36-7.41) VBG pCO2 (38-50) mmHg VBG pO2 mmHg VBG HCO3 mmol/L VBG O2 Saturation % VBG Base Excess mEq/L Barometric Pressure mm/Hg Sodium 140 (136-145) mmol/L Potassium 4.3 (3.5-5.1) mmol/L Chloride 108 H (98-107) mmol/L Carbon Dioxide 25 (21-32) mmol/L Anion Gap 7.0 (3-11) BUN 23 H (7-18) mg/dl Creatinine 1.42 H (0.6-1.4) mg/dl Est Cr Clr Drug Dosing 38.1 ml/min Est GFR ( Amer) 54.1 Est GFR (Non-Af Amer) 46.6 BUN/Creatinine Ratio 16.1 (10-20) Glucose 107 H (70-99) mg/dl Calcium 9.3 (8.5-10.1) mg/dl Phosphorus 3.0 (2.5-4.9) mg/dl Magnesium 1.8 (1.8-2.4) mg/dl Total Bilirubin 0.3 (0.2-1) mg/dl AST 21 (15-37) U/L ALT 41 (12-78) U/L Alkaline Phosphatase 148 H (45-117) U/L Troponin I < 0.015 (0-0.045) ng/ml NT-Pro-B Natriuret Pep (0-1800) pg/ml Total Protein 8.2 (6.4-8.2) gm/dl Albumin 4.2 (3.4-5.0) gm/dl Globulin 4.0 (2.5-4.0) gm/dl Albumin/Globulin Ratio 1.0 (0.9-2) COVID-19 Eval Order SARS-CoV-2, RNA, NAAT (NEGATIVE) 12/03/20 12/03/20 12/03/20 Range/Units 11:03 11:23 11:26 WBC (4.8-10.8) K/uL RBC (4.7-6.1) M/uL Hgb (14.0-18.0) g/dL Hct (42-52) % MCV (80-100) fL MCH (25-34) pg MCHC (32-36) g/dL RDW Std Deviation (36.4-46.3) fL RDW Coeff of Thalia (11.5-14.5) % Plt Count (130-400) K/uL MPV (7.4-10.4) fL Immature Gran % (Auto) % Neut % (Auto) % Lymph % (Auto) % Baldwin % (Auto) % Eos % (Auto) % Baso % (Auto) % Neut # (Auto) (1.4-6.5) K/uL Lymph # (Auto) (1.2-3.4) K/uL Baldwin # (Auto) (0.11-0.59) K/uL Eos # (Auto) (0-0.5) K/uL Baso # (Auto) (0-0.2) K/uL Immature Gran # (Auto) (0.00-0.02) K/uL PT (9.0-12.0) Seconds INR (0.9-1.1) APTT (21.0-31.0) Seconds PTT Ratio VBG pH 7.38 (7.36-7.41) VBG pCO2 43 (38-50) mmHg VBG pO2 34 mmHg VBG HCO3 24 mmol/L VBG O2 Saturation 61.8 % VBG Base Excess -0.9 mEq/L Barometric Pressure 722.9 mm/Hg Sodium (136-145) mmol/L Potassium (3.5-5.1) mmol/L Chloride (98-107) mmol/L Carbon Dioxide (21-32) mmol/L Anion Gap (3-11) BUN (7-18) mg/dl Creatinine (0.6-1.4) mg/dl Est Cr Clr Drug Dosing ml/min Est GFR ( Amer) Est GFR (Non-Af Amer) BUN/Creatinine Ratio (10-20) Glucose (70-99) mg/dl Calcium (8.5-10.1) mg/dl Phosphorus (2.5-4.9) mg/dl Magnesium (1.8-2.4) mg/dl Total Bilirubin (0.2-1) mg/dl AST (15-37) U/L ALT (12-78) U/L Alkaline Phosphatase (45-117) U/L Troponin I (0-0.045) ng/ml NT-Pro-B Natriuret Pep 52 (0-1800) pg/ml Total Protein (6.4-8.2) gm/dl Albumin (3.4-5.0) gm/dl Globulin (2.5-4.0) gm/dl Albumin/Globulin Ratio (0.9-2) COVID-19 Eval Order Covid19 IDNow [facility] SARS-CoV-2, RNA, NAAT (NEGATIVE) 12/03/20 Range/Units 11:26 WBC (4.8-10.8) K/uL RBC (4.7-6.1) M/uL Hgb (14.0-18.0) g/dL Hct (42-52) % MCV (80-100) fL MCH (25-34) pg MCHC (32-36) g/dL RDW Std Deviation (36.4-46.3) fL RDW Coeff of Thalia (11.5-14.5) % Plt Count (130-400) K/uL MPV (7.4-10.4) fL Immature Gran % (Auto) % Neut % (Auto) % Lymph % (Auto) % Baldwin % (Auto) % Eos % (Auto) % Baso % (Auto) % Neut # (Auto) (1.4-6.5) K/uL Lymph # (Auto) (1.2-3.4) K/uL Baldwin # (Auto) (0.11-0.59) K/uL Eos # (Auto) (0-0.5) K/uL Baso # (Auto) (0-0.2) K/uL Immature Gran # (Auto) (0.00-0.02) K/uL PT (9.0-12.0) Seconds INR (0.9-1.1) APTT (21.0-31.0) Seconds PTT Ratio VBG pH (7.36-7.41) VBG pCO2 (38-50) mmHg VBG pO2 mmHg VBG HCO3 mmol/L VBG O2 Saturation % VBG Base Excess mEq/L Barometric Pressure mm/Hg Sodium (136-145) mmol/L Potassium (3.5-5.1) mmol/L Chloride (98-107) mmol/L Carbon Dioxide (21-32) mmol/L Anion Gap (3-11) BUN (7-18) mg/dl Creatinine (0.6-1.4) mg/dl Est Cr Clr Drug Dosing ml/min Est GFR ( Amer) Est GFR (Non-Af Amer) BUN/Creatinine Ratio (10-20) Glucose (70-99) mg/dl Calcium (8.5-10.1) mg/dl Phosphorus (2.5-4.9) mg/dl Magnesium (1.8-2.4) mg/dl Total Bilirubin (0.2-1) mg/dl AST (15-37) U/L ALT (12-78) U/L Alkaline Phosphatase (45-117) U/L Troponin I (0-0.045) ng/ml NT-Pro-B Natriuret Pep (0-1800) pg/ml Total Protein (6.4-8.2) gm/dl Albumin (3.4-5.0) gm/dl Globulin (2.5-4.0) gm/dl Albumin/Globulin Ratio (0.9-2) COVID-19 Eval Order SARS-CoV-2, RNA, NAAT NEGATIVE (NEGATIVE) Administered Medications Enoxaparin Sodium (Enoxaparin Inj 40 Mg/0.4 Ml Syr) 40 mg SQ Q24H [facility]1983 Stop: 01/02/21 20:59 Last Admin: 12/03/20 21:15 Dose: 40 mg Documented by: [id number] Fluticasone/Vilanterol (Fluticasone/Vilanterol 100/25mcg 14 Puffs/Inhaler) 1 puffs INH HS ALEX Stop: 01/02/21 20:59 Last Admin: 12/03/20 21:15 Dose: 1 puffs Documented by: [id number] Methylprednisolone 60 mg/ (Syringe) 0.96 mls @ 1.5 mls/min IV Q12H [facility]–1983 Stop: 01/02/21 20:59 Last Admin: 12/03/20 21:38 Dose: 1.5 mls/min Documented by: [id number] Insulin Aspart (Insulin Aspart 100 Units/Ml 3 Ml Pen) 0 units SC [facility]; Protocol Stop: 01/02/21 16:59 Last Admin: 12/03/20 21:28 Dose: Not Given Documented by: [id number] Cosigned by: [id number] Admin: 12/03/20 17:46 Dose: 8 units Documented by: [id number] Cosigned by: [id number] Discontinued Medications Albuterol (Albut/Ipratrop 3mg/0.5mg Neb 3 Ml Vial) 12 ml NEB ONE ONE Stop: 12/03/20 11:14 Last Admin: 12/03/20 11:29 Dose: 12 ml Documented by: [id number] Azithromycin (Azithromycin 250 Mg Tab) 500 mg PO NOW ONE Stop: 12/03/20 16:31 Last Admin: 12/03/20 17:09 Dose: 500 mg Documented by: [id number] Dexamethasone (Dexamethasone Sod Inj 10 Mg/Ml Vial) 10 mg IV NOW ONE Stop: 12/03/20 11:14 Last Admin: 12/03/20 11:25 Dose: 10 mg Documented by: [id number] Guaifenesin (Guaifenesin 600 Mg Tabcr) 600 mg PO NOW STA Stop: 12/03/20 11:14 Last Admin: 12/03/20 11:25 Dose: 600 mg Documented by: [id number] Sodium Chloride (Nss) 500 mls @ 999 mls/hr IV .Q31M ONE Stop: 12/03/20 11:43 Last Infusion: 12/03/20 12:01 Dose: 0 mls/hr Documented by: [id number] Admin: 12/03/20 11:25 Dose: 999 mls/hr Documented by: [id number] Sodium Chloride (Nss) 500 mls @ 999 mls/hr IV .Q31M ONE Stop: 12/03/20 12:27 Last Infusion: 12/03/20 16:13 Dose: 0 mls/hr Documented by: [id number] Admin: 12/03/20 12:10 Dose: 999 mls/hr Documented by: [id number] Doxycycline Hyclate 100 mg/ (Dextrose) 110 mls @ 50 mls/hr IV NOW STA Stop: 12/03/20 15:34 Last Infusion: 12/03/20 16:20 Dose: 0 mls/hr Documented by: [id number] Admin: 12/03/20 14:06 Dose: 50 mls/hr Documented by: [id number] Insulin Glargine (Insulin Glargine Solostar 100 Units/Ml 3 Ml Pen) 20 units SC ONE ONE; Protocol Stop: 12/03/20 18:01 Last Admin: 12/03/20 17:45 Dose: 20 units Documented by: [id number] Cosigned by: [id number] Discharge Plan Visit Data Chief Complaint: Shortness of Breath/Dyspnea Stated Complaint: SOB ED Provider: Haider Elder Discharge Problem: Acute exacerbation of chronic obstructive pulmonary disease (COPD), Renal insufficiency, Shortness of breath at rest Patient Disposition: Admitted As Inpatient Discharge Instructions Interventions: ED Discharge Assessment Last Done: 12/03/20 15:27
[2020-12-03] MEDS ORDERED: DOXYCYCLINE HYCLATE 100 MG in DEXTROSE 5% 100 ML IV STA (13:23)
--- NOTE | 2020-12-03 13:41 | History & Physical Report ---
Date of Service December 03, 2020 Assessment & Plan (1) Acute exacerbation of chronic obstructive pulmonary disease (COPD): Mr. Mcmahan is a 80-year-old male with a history of COPD, Restrictive Lung Disease, Type 2 Diabetes Mellitus, Hyperlipidemia, Hyperthyroidism, GERD, Nephrolithiasis, and BPH who presents acutely to [facility] ER today with an Acute COPD Exacerbation without hypoxia. His O2 saturations on room air are 94% to 95%. Patient was hospitalized here in mid October with a COPD exacerbation. He was treated with corticosteroids and azithromycin. He stayed overnight, and his breathing status had improved and he was discharged on 11/02/2020. He went home on a short course of oral steroids, and 5 days of antibiotics. At the end of that treatment, he was feeling quite well, and his breathing was back to baseline. However within a few days he began to note increasing dyspnea, intermittent cough, wheezing, and eventually shortness of breath at rest. In total he has had these symptoms for about 2 weeks, but over the past week his dyspnea/shortness of breath has gotten much worse. He states that he he had a very difficult time catching his breath last night and this morning -- thinking he was going to . He states that occasionally he does produce some greenish colored sputum when he coughs, but he usually does not bring much of anything up at all. Patient denies any fever, chills, headache, stiff neck, or any chest discomfort. He denies any pleuritic chest discomfort. He denies any hemoptysis. He did a nebulizer treatment at home, but that did not help all that much. He does have pets, but these are not new pets. He uses a heat pump to heat his home. He does not use a wood burner. He denies any exposure to COVID- 19, and his COVID-19 testing is negative. After arriving in the ER, he had a DuoNeb nebulizer treatment, and received IV Dexamethasone 10 mg. He currently is feeling less short of breath than he felt last night and this morning. -- Admit to [facility] with Telemetry on observation status. -- IV Solumedrol 60 mg Q12H. -- Continue Duoneb Nebulizer treatments. -- Continue Albuterol MDI as needed. -- Continue Breo Ellipta 1 puff inhaled daily at bedtime. -- Received a dose of IV Doxycycline 100 mg in ER. -- Sputum Culture and Gram stain. -- Supplemental O2 as needed to maintain SpO2 of 92% to 98%. (2) Restrictive lung disease: -- Encouraged weight loss. -- Continue medications as outlined above. (3) Sinus tachycardia: -- Likely secondary to steroid, adrenergic/anticholinergic nebulizer treatment, and increased work of breathing/physiologic stress. -- Asymptomatic, continue to monitor throughout hospitalization. (4) Type 2 diabetes mellitus: -- Hold Metformin while hospitalized. -- BSG QACHS. -- Sliding Scale Insulin coverage. (5) Hyperthyroidism: -- Continue Methimazole 5 mg daily. -- TSH was within normal limits at 1.790 uIU/ml on 11/01/2020. History of Present Illness Chief Complaint: -- SOB, Wheezing. -- COPD Exacerbation. Primary Care Provider: Cristobal Galo MD Mr. Mcmahan is a 80-year-old male with a history of COPD, Restrictive Lung Disease, Type 2 Diabetes Mellitus, Hyperlipidemia, Hyperthyroidism, GERD, Nephrolithiasis, and BPH who presents acutely to [facility] ER today complaining of Worsening SOB over the past 1 week. Patient was hospitalized here in mid October with a COPD exacerbation. He was treated with corticosteroids and azithromycin. He stayed overnight, and his breathing status had improved and he was discharged on 11/02/2020. He went home on a short course of oral steroids, and 5 days of antibiotics. At the end of that treatment, he was feeling quite well, and his breathing was back to baseline. However within a few days he began to note increasing dyspnea, intermittent cough, wheezing, and eventually shortness of breath at rest. In total he has had the symptoms for about 2 weeks, but over the past week they have gotten worse. He states that he he had a very difficult time catching his breath last night and this morning. He did a nebulizer treatment at home, but that did not help all that much. Once he was in the ER, he had a DuoNeb ne bulizer treatment, and received dexamethasone 10 mg IV. He currently is feeling less short of breath, but is still working hard to breathe. He states that occasionally he does produce some greenish colored sputum when he coughs, but he usually does not bring much of anything up at all. Patient denies any fever, chills, headache, stiff neck, or any chest discomfort. He denies any pleuritic chest discomfort. He denies any hemoptysis. Patient cannot think of anything in his environment that is new. He does have pets, but these are not new pets. He uses a heat pump to heat his home. He does not use a wood burner. He denies any exposure to COVID-19, and his COVID- 19 testing is negative. Patient was scheduled to have pulmonary function testing done on 12/06/2020 at [facility] [place] Pul[place]. He was previously followed by Dr. Garcia. He is going to establish with Dr. Ovalles in the near future. Allergies Allergy/AdvReac Type Severity Reaction Status Date / Time Penicillins Allergy Severe SHORTNESS Verified 12/03/20 12:53 OF BREATH procaine Allergy Unknown FLUSHING Verified 12/03/20 12:53 AND SHORTNESS OF BREATH Home Medications Medication Instructions Recorded Confirmed Type Breo Ellipta 1 inh INHALATION HS 11/01/20 12/03/20 History cholecalciferol (vitamin D3) 2,000 unit PO QAM 11/01/20 12/03/20 History [Vitamin D3] finasteride 5 mg PO QAM 11/01/20 12/03/20 History metformin 500 mg PO QAM 11/01/20 12/03/20 History methimazole 5 mg PO QAM 11/01/20 12/03/20 History pantoprazole 40 mg PO QAM 11/01/20 12/03/20 History zinc 0 mg PO QAM 11/01/20 12/03/20 History OneTouch Ultra Blue Test Strip #100 ea NS 11/07/20 11/07/20 Rx OneTouch Ultra2 Meter #1 ea NS 11/07/20 11/07/20 Rx OneTouch UltraSoft Lancets #100 ea NS 11/07/20 11/07/20 Rx ipratropium 0.5 mg-albuterol 3 mg 3 ml INHALATION Q6H PRN #180 ml 11/07/20 12/03/20 Rx (2.5 mg base)/3 mL nebulization soln nebulizers #1 ea 11/07/20 11/07/20 Rx albuterol sulfate 90 mcg/actuation 1 puff INHALATION DIRECTED PRN 11/20/20 12/03/20 Rx aerosol inhaler #18 g aspirin [Aspir-81] 81 mg PO QAM 12/03/20 12/03/20 History Past Med/Surg History Medical History BPH (benign prostatic hyperplasia) Carcinoma of right eyelid Chronic obstructive pulmonary disease inhalers daily/prn COPD (chronic obstructive pulmonary disease) Cyst in hand right hand 06/2019 GERD (gastroesophageal reflux disease) Hearing loss History of colon polyps Hyperthyroidism Hypertriglyceridemia Kidney stones Melanoma Of the right eyelid Restrictive lung disease Tubulovillous adenoma Type 2 diabetes mellitus Vitamin D insufficiency Surgical History H/O: knee surgery RT TENDON REPAIR History of cardiac cath HEART CATH X 2/NO STENTS History of colon resection BENIGN History of colonoscopy History of ear surgery History of eyelid surgery right d/t cancer History of rectal surgery GROWTH REMOVAL History of tonsillectomy and adenoidectomy History of tooth extraction Hx of transurethral resection of prostate Family History Brother Type 2 diabetes mellitus Aunt Type 2 diabetes mellitus Myocardial infarction Social History Smoking Status: Never smoker Tobacco Type: Cigarettes Age Started Using Tobacco: 9; Age Quit Using Tobacco: 73; packs per day: 1; Years Smoked: 64; Second Hand Exposure: No; Hx Alcohol Use: No Hx Substance Use: No Preferred Language: Syriac Communication Ability: Effective Visual Impairment: Limited Hearing Ability: Use of 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 Aid 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 Beliefs That Will Affect Care: None marital status: Current Living Situation: Spouse current occupational status: retired Other Information That Helps Us Care for You: No Feels Safe at Home: Yes Safety Concerns: Feels Safe At This Time Childhood Exposure to Second-Hand Smoke: Yes caffeine: Yes Dental Care, Regularly: No Physical Activity Frequency: Daily Physical Activity Frequency Comment: walk Seatbelt Use: always Sunscreen Use: No (stays out of the sun) Do you think of yourself as: straight/heterosexual Assistive Devices: None Review of Systems Review of Systems: All systems reviewed & are unremarkable except as noted in Subjective Physical Exam Physical Exam: GENERAL: Patient in no acute distress. HEENT: Head is atraumatic, normocephalic. EOM's intact, exophthalmia of the right eye noted. Facies symmetric. No perioral cyanosis. NECK: No JVD. JVP is not elevated. Carotid upstrokes are + 2 bilaterally without obvious bruits. CHEST/LUNGS: Increased A:P diameter, with harsh breath sounds during inhalation, with expiratory wheezes. Decreased diaphragmatic excursion. Patient tripods at times while talking and trying to breathe. CVS: S1 and S2 are regular with occasional ectopy, and tachycardic at approximately 110 bpm. No obvious murmurs, gallops, or rubs. Heart sounds are heard best in the midepigastrium. PMI is nonpalpable. No lifts, heaves, or thrills. No abdominal aortic or renal bruits. ABDOMINAL EXAM: Bowel sounds are present. No masses, organomegaly, or tenderness. EXTREMITIES: No clubbing or cyanosis. No leg edema. Intact radial pulses bilaterally. NEUROLOGIC EXAM: Patient is awake, alert, and oriented. Pleasant and cooperative. Answers questions appropriately. Speech is clear. He is hard of hearing, hearing aid in place. Normal movement in all 4 extremities. Gait pattern was not assessed. COLOR WEIGHER: -- Sinus tachycardia with relatively frequent PACs. -- HR ranging from 95 to 118 bpm. Results & Data Results & Data ([facility]) Vital Signs (Past 12 Hours) Vital Signs Temp Pulse Pulse Resp BP BP Pulse Ox 12/03/20 13:00 117 H 24 150/80 H 95 12/03/20 11:57 97 H 16 143/92 H 100 12/03/20 11:30 105 H 20 96 12/03/20 11:03 103 H 20 143/92 H 95 12/03/20 10:56 94 12/03/20 10:48 36.5 C 110 H 26 H 172/105 H 94 Laboratory Results Laboratory Results - last 24 hr 12/03/20 12/03/20 12/03/20 11:03 11:03 11:03 WBC 11.04 H RBC 5.28 Hgb 14.3 Hct 43.6 MCV 82.6 MCH 27.1 MCHC 32.8 RDW Std Deviation 48.7 H RDW Coeff of Thalia 16.1 H Plt Count 352 MPV 10.5 H Immature Gran % (Auto) 0.4 Neut % (Auto) 62.9 Lymph % (Auto) 17.7 Trigg % (Auto) 8.2 Eos % (Auto) 9.6 Baso % (Auto) 1.2 Neut # (Auto) 6.96 H Lymph # (Auto) 1.95 Trigg # (Auto) 0.90 H Eos # (Auto) 1.06 H Baso # (Auto) 0.13 Immature Gran # (Auto) 0.04 H PT 9.8 INR 1.0 APTT 23.4 PTT Ratio 0.9 VBG pH VBG pCO2 VBG pO2 VBG HCO3 VBG O2 Saturation VBG Base Excess Barometric Pressure Sodium 140 Potassium 4.3 Chloride 108 H Carbon Dioxide 25 Anion Gap 7.0 BUN 23 H Creatinine 1.42 H Est Cr Clr Drug Dosing 38.1 Est GFR ( Amer) 54.1 Est GFR (Non-Af Amer) 46.6 BUN/Creatinine Ratio 16.1 Glucose 107 H Calcium 9.3 Phosphorus 3.0 Magnesium 1.8 Total Bilirubin 0.3 AST 21 ALT 41 Alkaline Phosphatase 148 H Troponin I < 0.015 NT-Pro-B Natriuret Pep Total Protein 8.2 Albumin 4.2 Globulin 4.0 Albumin/Globulin Ratio 1.0 COVID-19 Eval Order SARS-CoV-2, RNA, NAAT 12/03/20 12/03/20 12/03/20 11:03 11:23 11:26 WBC RBC Hgb Hct MCV MCH MCHC RDW Std Deviation RDW Coeff of Thalia Plt Count MPV Immature Gran % (Auto) Neut % (Auto) Lymph % (Auto) Trigg % (Auto) Eos % (Auto) Baso % (Auto) Neut # (Auto) Lymph # (Auto) Trigg # (Auto) Eos # (Auto) Baso # (Auto) Immature Gran # (Auto) PT INR APTT PTT Ratio VBG pH 7.38 VBG pCO2 43 VBG pO2 34 VBG HCO3 24 VBG O2 Saturation 61.8 VBG Base Excess -0.9 Barometric Pressure 722.9 Sodium Potassium Chloride Carbon Dioxide Anion Gap BUN Creatinine Est Cr Clr Drug Dosing Est GFR ( Amer) Est GFR (Non-Af Amer) BUN/Creatinine Ratio Glucose Calcium Phosphorus Magnesium Total Bilirubin AST ALT Alkaline Phosphatase Troponin I NT-Pro-B Natriuret Pep 52 Total Protein Albumin Globulin Albumin/Globulin Ratio COVID-19 Eval [facility] SARS-CoV-2, RNA, NAAT 12/03/20 11:26 WBC RBC Hgb Hct MCV MCH MCHC RDW Std Deviation RDW Coeff of Thalia Plt Count MPV Immature Gran % (Auto) Neut % (Auto) Lymph % (Auto) Trigg % (Auto) Eos % (Auto) Baso % (Auto) Neut # (Auto) Lymph # (Auto) Trigg # (Auto) Eos # (Auto) Baso # (Auto) Immature Gran # (Auto) PT INR APTT PTT Ratio VBG pH VBG pCO2 VBG pO2 VBG HCO3 VBG O2 Saturation VBG Base Excess Barometric Pressure Sodium Potassium Chloride Carbon Dioxide Anion Gap BUN Creatinine Est Cr Clr Drug Dosing Est GFR ( Amer) Est GFR (Non-Af Amer) BUN/Creatinine Ratio Glucose Calcium Phosphorus Magnesium Total Bilirubin AST ALT Alkaline Phosphatase Troponin I NT-Pro-B Natriuret Pep Total Protein Albumin Globulin Albumin/Globulin Ratio COVID-19 Eval Order SARS-CoV-2, RNA, NAAT NEGATIVE Diagnostic Findings CXR 12/03/2020: The heart is the upper limits of normal in size. There is no failure. There is no focal pulmonary consolidation. There are no pleural effusions. IMPRESSION: -- No active disease in the chest. Medications Administered Discontinued Medications Albuterol (Albut/Ipratrop 3mg/0.5mg Neb 3 Ml Vial) 12 ml NEB ONE ONE Stop: 12/03/20 11:14 Last Admin: 12/03/20 11:29 Dose: 12 ml Documented by: [id number] Dexamethasone (Dexamethasone Sod Inj 10 Mg/Ml Vial) 10 mg IV NOW ONE Stop: 12/03/20 11:14 Last Admin: 12/03/20 11:25 Dose: 10 mg Documented by: [id number] Guaifenesin (Guaifenesin 600 Mg Tabcr) 600 mg PO NOW STA Stop: 12/03/20 11:14 Last Admin: 12/03/20 11:25 Dose: 600 mg Documented by: [id number] Sodium Chloride (Nss) 500 mls @ 999 mls/hr IV .Q31M ONE Stop: 12/03/20 11:43 Last Infusion: 12/03/20 12:01 Dose: 0 mls/hr Documented by: [id number] Admin: 12/03/20 11:25 Dose: 999 mls/hr Documented by: [id number] Sodium Chloride (Nss) 500 mls @ 999 mls/hr IV .Q31M ONE Stop: 12/03/20 12:27 Last Admin: 12/03/20 12:10 Dose: 999 mls/hr Documented by: [id number] Code Status & VTE Plan Code Status Full Code VTE Prophylaxis Plan VTE Prophylaxis will be ordered: Yes Supervising Physician Co-Signing Physician Notes I personally saw and examined the patient. I verified all abdi points and agree with BABAK Durand with the following exceptions and/or additions: 80-year-old male with restrictive lung disease and COPD. Admission for progressive worsening shortness of breath and wheezing since recent discharge. O/E chest - expiratory wheeze throughout, no crackles, HS 1+2, no murmurs, Abdo SNT A/P COPD exacerbation - Agree with solu-medrol 60mg IV BID, likely to need a longer tapering course of steroids. Would repeat Z-igor despite recently completing this for COPD exacerbation however no indication of pneumonia from imaging or lab work. Follow up with pulmonology as outpatient. PG Care Time/CCT Total # of Minutes Spent Total Time Spent with Patient: Total time spent is greater than 50% in coordination of care (as documented) at patient's floor/unit and/or counseling patient:50 Coding Level of Care Code 35155 OBS Care - Level 2 Diagnoses Acute exacerbation of chronic obstructive pulmonary disease (COPD) J44.1 Restrictive lung disease J98.4 Sinus tachycardia R00.0 Type 2 diabetes mellitus E11.9 Hyperthyroidism E05.90 Time Spent (min) 65
[2020-12-03] MEDS ORDERED: methylPREDNISolone 125 MG/2 ML VIAL IV SCH (16:18)
[2020-12-03] MEDS ORDERED: ACETAMINOPHEN 325 MG TAB PO PRN (16:18)
[2020-12-03] MEDS ORDERED: ALUMINUM/MAGNESIUM/SIMETH (MAALOX MAX) 30 ML UDC PO PRN (16:18)
[2020-12-03] MEDS ORDERED: ONDANSETRON INJ 2 MG/ML 2 ML VIAL IV PRN (16:18)
[2020-12-03] MEDS ORDERED: ALBUT/IPRATROP 3MG/0.5MG NEB 3 ML VIAL INH PRN (16:18)
[2020-12-03] MEDS ORDERED: MAGNESIUM HYDROXIDE SUSP 30 ML UDC PO PRN (16:18)
[2020-12-03] MEDS ORDERED: AZITHROMYCIN 250 MG TAB PO ONE (16:30)
[2020-12-03] MEDS ORDERED: ALBUTEROL HFA 8 GM INHALER INH PRN (16:31)
[2020-12-03] MEDS ORDERED: PHARMACY GLYCEMIC MGMT CONSULT PRN (16:48)
[2020-12-03] MEDS ORDERED: DEXTROSE 50% 50 ML SYRINGE IV PRN (17:00)
[2020-12-03] MEDS ORDERED: CARBOHYDRATES FOR HYPOGLYCEMIA PO PRN (17:00)
[2020-12-03] MEDS ORDERED: GLUCAGON FOR INJ 1 MG VIAL IM PRN (17:00)
[2020-12-03] MEDS ORDERED: GLUCOSE 40% GEL 15 GM TUBE PO PRN (17:00)
[2020-12-03] MEDS ORDERED: GLUCOSE 10 TABS/TUBE PO PRN (17:00)
[2020-12-03] MEDS: INSULIN ASPART 100 UNITS/ML 3 ML PEN SC SCH ×2 (17:46→21:28)
[2020-12-03] MEDS ORDERED: INSULIN GLARGINE SOLOSTAR 100 UNITS/ML 3 ML PEN SC ONE (18:00)
[2020-12-03] MEDS: ENOXAPARIN INJ 40 MG/0.4 ML SYR SQ SCH (21:15)
[2020-12-03] MEDS: FLUTICASONE/VILANTEROL 100/25MCG 14 PUFFS/INHALER INH SCH (21:15)
[2020-12-03] MEDS ORDERED: COUGH DROP (SUGAR FREE) LOZ 24 LOZ/1 BOX BUCCAL ONE (21:21)
[2020-12-03] MEDS: methylPREDNISolone 60 MG in SYRINGE 0 ML IV SCH (21:38)
[2020-12-04] MEDS: INSULIN ASPART 100 UNITS/ML 3 ML PEN SC SCH ×6 (00:09→20:49)
--- NOTE | 2020-12-04 06:11 | Electrocardiogram Report ---
Test Reason : Blood Pressure : / mmHG Vent. Rate : 115 BPM Atrial Rate : 115 BPM P-R Int : 208 ms QRS Dur : 120 ms QT Int : 344 ms P-R-T Axes : 099 -06 067 degrees QTc Int : 475 ms Poor data quality, interpretation may be adversely affected Sinus tachycardia with Premature atrial complexes Right bundle branch block Nonspecific ST and T wave abnormality Abnormal ECG When compared with ECG of 01-NOV-2020 21:25, No significant change was found Confirmed by Alok Peña ([id number]) on 12/04/2020 6:10:51 AM Referred By: Confirmed By:Alok Peña
[2020-12-04 07:31] LABS: Basophils # (auto) 0.01 K/uL (0-0.2); Basophils % (auto) 0.1 %; Hematocrit (blood only) 41.6 % (42-52); Hemoglobin 13.7 g/dL (14.0-18.0); Immature Granulocytes # (auto) 0.04 K/uL (0.00-0.02); Immature Granulocytes % (auto) 0.3 %; Lymphocytes # (auto) 1.32 K/uL (1.2-3.4); Lymphocytes % (auto) 9.5 %; Mean Corpuscular Hemoglobin 26.5 pg (25-34); Mean Corpuscular Hgb Conc 32.9 g/dL (32-36); Mean Corpuscular Volume 80.5 fL (80-100); Mean Platelet Volume 10.4 fL (7.4-10.4); Monocytes # (auto) 0.34 K/uL (0.11-0.59); Monocytes % (auto) 2.4 %; Neutrophils # (auto) 12.17 K/uL (1.4-6.5); Neutrophils % (auto) 87.7 %; Platelet Count 318 K/uL (130-400); RDW Coefficient of Variation 15.7 % (11.5-14.5); RDW Standard Deviation 45.7 fL (36.4-46.3); Red Blood Count 5.17 M/uL (4.7-6.1); White Blood Count 13.88 K/uL (4.8-10.8)
[2020-12-04] MEDS: CHOLECALCIFEROL 1,000 UNITS 25 MCG TAB PO SCH (07:35)
[2020-12-04] MEDS: ZINC SULFATE 220 MG CAPSULE PO SCH (07:35)
[2020-12-04] MEDS: FINASTERIDE 5 MG TAB PO SCH (07:37)
[2020-12-04] MEDS: methIMAzole 5 MG TABLET PO SCH (07:37)
[2020-12-04] MEDS: AZITHROMYCIN 250 MG TAB PO SCH (07:37)
[2020-12-04] MEDS: ASPIRIN 81 MG ECTAB PO SCH (07:38)
[2020-12-04] MEDS: methylPREDNISolone 60 MG in SYRINGE 0 ML IV SCH (07:38)
[2020-12-04] MEDS: PANTOprazole 40 MG TAB PO SCH (07:38)
[2020-12-04 08:08] LABS: BUN Creatinine Ratio 17.8 (10-20); Calcium 9.6 mg/dl (8.5-10.1); Creatinine Clr Calc Pharmacy 52.5 ml/min; Est GFR (African American) 71.3; Est GFR (Non-African American) 61.5; Potassium 4.9 mmol/L (3.5-5.1)
--- NOTE | 2020-12-04 08:20 | Hospitalist Progress Note ---
Date of Service December 04, 2020 Assessment & Plan (1) Acute exacerbation of chronic obstructive pulmonary disease (COPD): Mr. Mcmahan is a 80-year-old male with a history of COPD, Restrictive Lung Disease, Type 2 Diabetes Mellitus, Hyperlipidemia, Hyperthyroidism, GERD, Nephrolithiasis, and BPH who presents acutely to [facility] ER today with an Acute COPD Exacerbation without hypoxia. His O2 saturations on room air are 94% to 95%. Patient was hospitalized here in mid October with a COPD exacerbation. He was treated with corticosteroids and azithromycin. He stayed overnight, and his breathing status had improved and he was discharged on 11/02/2020. He went home on a short course of oral steroids, and 5 days of antibiotics. At the end of that treatment, he was feeling quite well, and his breathing was back to baseline. However within a few days he began to note increasing dyspnea, intermittent cough, wheezing, and eventually shortness of breath at rest. In total he has had these symptoms for about 2 weeks, but over the past week his dyspnea/shortness of breath has gotten much worse. He states that he he had a very difficult time catching his breath last night and this morning -- thinking he was going to . He states that occasionally he does produce some greenish colored sputum when he coughs, but he usually does not bring much of anything up at all. Patient denies any fever, chills, headache, stiff neck, or any chest discomfort. He denies any pleuritic chest discomfort. He denies any hemoptysis. He did a nebulizer treatment at home, but that did not help all that much. He does have pets, but these are not new pets. He uses a heat pump to heat his home. He does not use a wood burner. He denies any exposure to COVID- 19, and his COVID-19 testing is negative. After arriving in the ER, he had a DuoNeb nebulizer treatment, and received IV Dexamethasone 10 mg. . #Acute exacerbation of chronic obstructive pulmonary disease -Admited to [facility] with Telemetry on observation status. -IV Solumedrol 60 mg daily. -Continue Duoneb Nebulizer treatments. -Continue Albuterol MDI as needed. -Continue Breo Ellipta 1 puff inhaled daily at bedtime. -Twice daily p.o. doxy for 10 days -Follow-up sputum culture and Gram stain -As needed supplemental O2 as needed to maintain SpO2 of 92% to 98%. -Chest PT, incentive spirometry, flutter valve ordered #COPD with mild restrictive pattern As evidenced by most recent PFTs, that would be PFTs were scheduled for this Wednesday. -Encourage weight loss -Medications blood #Sinus tachycardia Presented with sinus tach thought to be secondary to steroid, adrenergic/allergic with nebulizer treatment, and increased work of breathing. -Monitor on telemetry #Diabetes type 2 Holding home Metformin while hospitalized -BSG QACHS. -SSI while hospitalized -Glargine 20 units every morning -Sugars have been a bit on the high side tighten aspart to CHO ratio to 1:6 and cf to 20 #Hypothyroidism TSH was within normal limits at 1.790 uIU/ml on 11/01/2020. -Continue Methimazole 5 mg daily. FENa: Diabetic diet Code Status:Full DVT PPX: Lovenox PT/OT: Ordered Dispo: MedSurg with telemetry Yuri Mobley MD PGY 2, FCM This chart was completed utilizing [employer] voice recognition software. Grammatical errors, random word insertions, pronoun errors, and in complete sentences are an occasional consequence of the system. Any questions or concerns about the content, text, or information contained within the body of this dictation should be addressed directly to the physician for clarification. (2) Restrictive lung disease: (3) Sinus tachycardia: (4) Type 2 diabetes mellitus: (5) Hyperthyroidism: -- -- Admission and Anticipated Discharge Date Admission Date: December 03, 2020 Supervising Physician Co-Signing Physician Notes I personally examined the patient and verified all abdi points of history and exam, discussed case, and agree with decision making with Dr Mobley. Feeling better than yesterday. Notes that he is still dyspneic on exertion but this is a lot better than before. Notes that he was feeling good on the time he was on the steroids and for about a day or 2 afterwards, but about 2 days afterwards he started to get more short of breath and congested and things just worsened from there. Is supposed to see pulmonary later this week. Vitals noted, in general he is awake and alert pleasant no distress. HEENT normocephalic atraumatic mucous membranes moist. Lungs show diminished air entry on inspiration and coarse expiratory rhonchi and expiration. No accessory muscle use no conversational dyspnea good effort. Skin shows no rashes no pallor or icterus. COPD exacerbationcontinue steroids and Zithromax. Added anticholinergic inhaler. Continue long-acting beta agonist and long-acting steroid. Continue pulmonary toilet. Fortunately on room air. Would like to see a little bit further improvement in his lung exam and vitals but hopefully he will be home tomorrow safely. Close outpatient pulmonary follow-uphe is actually to have PFTs later this week, although given the acute illness this may need to be pushed back a little bit. DVT prophylaxis Lovenox Otherwise as above Subjective Sitting up in bed this morning in no acute distress. Patient reports slight improvement in his respiratory symptoms since admission however he is not back to baseline. Patient reports a longstanding history of COPD with recent exacerbation approximately a month ago this was treated with a azithromycin and prednisone and the patient reports significant improvement. He reported that once he stopped taking the prednisone as an outpatient he began to become symptomatic again. This progressively worsened over the past 2 weeks to the point where he experienced severe dyspnea on exertion prior to admission. He follows with Dr. Ovalles as an outpatient and has PFTs scheduled for this Wednesday. The patient reports he is compliant with his inhalers at home. Acute concerns relate to respiratory difficulties, all questions were answered. Physical Exam Physical Exam: General: Elderly gentleman sitting in bed in no acute distress. HEENT: Normocephalic atraumatic Neck: Normal to visual inspection Cardiac: Regular rate and rhythm I did not appreciate significant murmurs rubs or gallops, normal S1, normal S2, negative pedal edema, negative calf tenderness Respiratory: Increased AP diameter, increased work of breathing, poor ventilation, diffuse wheezing and rhonchi heard throughout all lung boo did not appreciate significant rales GI: Soft nontender nondistended bowel sounds present Neuro: Alert and oriented x4 Psych: Calm and cooperative with the interview Results & Data Results & Data ([facility]) Vital Signs (Past 12 Hours) Vital Signs Temp Pulse Resp BP Pulse Ox 12/04/20 07:54 36.5 C 91 H 20 149/87 H 94 12/04/20 03:47 36.6 C 94 H 22 159/91 H 94 12/03/20 23:27 36.7 C 108 H 18 148/81 H 92 Laboratory Results 12/04/20 12/04/20 12/04/20 Range/Units 07:28 07:03 07:03 WBC 13.88 H (4.8-10.8) K/uL RBC 5.17 (4.7-6.1) M/uL Hgb 13.7 L (14.0-18.0) g/dL Hct 41.6 L (42-52) % MCV 80.5 (80-100) fL MCH 26.5 (25-34) pg MCHC 32.9 (32-36) g/dL RDW Std Deviation 45.7 (36.4-46.3) fL RDW Coeff of Thalia 15.7 H (11.5-14.5) % Plt Count 318 (130-400) K/uL MPV 10.4 (7.4-10.4) fL Immature Gran % (Auto) 0.3 % Neut % (Auto) 87.7 % Lymph % (Auto) 9.5 % Greene % (Auto) 2.4 % Eos % (Auto) 0.0 % Baso % (Auto) 0.1 % Neut # (Auto) 12.17 H (1.4-6.5) K/uL Lymph # (Auto) 1.32 (1.2-3.4) K/uL Greene # (Auto) 0.34 (0.11-0.59) K/uL Eos # (Auto) 0.00 (0-0.5) K/uL Baso # (Auto) 0.01 (0-0.2) K/uL Immature Gran # (Auto) 0.04 H (0.00-0.02) K/uL PT (9.0-12.0) Seconds INR (0.9-1.1) APTT (21.0-31.0) Seconds PTT Ratio VBG pH (7.36-7.41) VBG pCO2 (38-50) mmHg VBG pO2 mmHg VBG HCO3 mmol/L VBG O2 Saturation % VBG Base Excess mEq/L Barometric Pressure mm/Hg Sodium 137 (136-145) mmol/L Potassium 4.9 (3.5-5.1) mmol/L Chloride 105 (98-107) mmol/L Carbon Dioxide 25 (21-32) mmol/L Anion Gap 7.0 (3-11) BUN 20 H (7-18) mg/dl Creatinine 1.13 (0.6-1.4) mg/dl Est Cr Clr Drug Dosing 52.5 ml/min Est GFR ( Amer) 71.3 Est GFR (Non-Af Amer) 61.5 BUN/Creatinine Ratio 17.8 (10-20) Glucose 171 H (70-99) mg/dl POC Glucose 161 H (70-99) mg/dl Calcium 9.6 (8.5-10.1) mg/dl Phosphorus (2.5-4.9) mg/dl Magnesium (1.8-2.4) mg/dl Total Bilirubin (0.2-1) mg/dl AST (15-37) U/L ALT (12-78) U/L Alkaline Phosphatase (45-117) U/L Troponin I (0-0.045) ng/ml NT-Pro-B Natriuret Pep (0-1800) pg/ml Total Protein (6.4-8.2) gm/dl Albumin (3.4-5.0) gm/dl Globulin (2.5-4.0) gm/dl Albumin/Globulin Ratio (0.9-2) COVID-19 Eval Order SARS-CoV-2, RNA, NAAT (NEGATIVE) 12/04/20 12/04/20 12/03/20 Range/Units 04:04 00:08 20:50 WBC (4.8-10.8) K/uL RBC (4.7-6.1) M/uL Hgb (14.0-18.0) g/dL Hct (42-52) % MCV (80-100) fL MCH (25-34) pg MCHC (32-36) g/dL RDW Std Deviation (36.4-46.3) fL RDW Coeff of Thalia (11.5-14.5) % Plt Count (130-400) K/uL MPV (7.4-10.4) fL Immature Gran % (Auto) % Neut % (Auto) % Lymph % (Auto) % Greene % (Auto) % Eos % (Auto) % Baso % (Auto) % Neut # (Auto) (1.4-6.5) K/uL Lymph # (Auto) (1.2-3.4) K/uL Greene # (Auto) (0.11-0.59) K/uL Eos # (Auto) (0-0.5) K/uL Baso # (Auto) (0-0.2) K/uL Immature Gran # (Auto) (0.00-0.02) K/uL PT (9.0-12.0) Seconds INR (0.9-1.1) APTT (21.0-31.0) Seconds PTT Ratio VBG pH (7.36-7.41) VBG pCO2 (38-50) mmHg VBG pO2 mmHg VBG HCO3 mmol/L VBG O2 Saturation % VBG Base Excess mEq/L Barometric Pressure mm/Hg Sodium (136-145) mmol/L Potassium (3.5-5.1) mmol/L Chloride (98-107) mmol/L Carbon Dioxide (21-32) mmol/L Anion Gap (3-11) BUN (7-18) mg/dl Creatinine (0.6-1.4) mg/dl Est Cr Clr Drug Dosing ml/min Est GFR ( Amer) Est GFR (Non-Af Amer) BUN/Creatinine Ratio (10-20) Glucose (70-99) mg/dl POC Glucose 166 H 195 H 136 H (70-99) mg/dl Calcium (8.5-10.1) mg/dl Phosphorus (2.5-4.9) mg/dl Magnesium (1.8-2.4) mg/dl Total Bilirubin (0.2-1) mg/dl AST (15-37) U/L ALT (12-78) U/L Alkaline Phosphatase (45-117) U/L Troponin I (0-0.045) ng/ml NT-Pro-B Natriuret Pep (0-1800) pg/ml Total Protein (6.4-8.2) gm/dl Albumin (3.4-5.0) gm/dl Globulin (2.5-4.0) gm/dl Albumin/Globulin Ratio (0.9-2) COVID-19 Eval Order SARS-CoV-2, RNA, NAAT (NEGATIVE) 12/03/20 12/03/20 12/03/20 Range/Units 16:38 11:26 11:26 WBC (4.8-10.8) K/uL RBC (4.7-6.1) M/uL Hgb (14.0-18.0) g/dL Hct (42-52) % MCV (80-100) fL MCH (25-34) pg MCHC (32-36) g/dL RDW Std Deviation (36.4-46.3) fL RDW Coeff of Thalia (11.5-14.5) % Plt Count (130-400) K/uL MPV (7.4-10.4) fL Immature Gran % (Auto) % Neut % (Auto) % Lymph % (Auto) % Greene % (Auto) % Eos % (Auto) % Baso % (Auto) % Neut # (Auto) (1.4-6.5) K/uL Lymph # (Auto) (1.2-3.4) K/uL Greene # (Auto) (0.11-0.59) K/uL Eos # (Auto) (0-0.5) K/uL Baso # (Auto) (0-0.2) K/uL Immature Gran # (Auto) (0.00-0.02) K/uL PT (9.0-12.0) Seconds INR (0.9-1.1) APTT (21.0-31.0) Seconds PTT Ratio VBG pH (7.36-7.41) VBG pCO2 (38-50) mmHg VBG pO2 mmHg VBG HCO3 mmol/L VBG O2 Saturation % VBG Base Excess mEq/L Barometric Pressure mm/Hg Sodium (136-145) mmol/L Potassium (3.5-5.1) mmol/L Chloride (98-107) mmol/L Carbon Dioxide (21-32) mmol/L Anion Gap (3-11) BUN (7-18) mg/dl Creatinine (0.6-1.4) mg/dl Est Cr Clr Drug Dosing ml/min Est GFR ( Amer) Est GFR (Non-Af Amer) BUN/Creatinine Ratio (10-20) Glucose (70-99) mg/dl POC Glucose 220 H (70-99) mg/dl Calcium (8.5-10.1) mg/dl Phosphorus (2.5-4.9) mg/dl Magnesium (1.8-2.4) mg/dl Total Bilirubin (0.2-1) mg/dl AST (15-37) U/L ALT (12-78) U/L Alkaline Phosphatase (45-117) U/L Troponin I (0-0.045) ng/ml NT-Pro-B Natriuret Pep (0-1800) pg/ml Total Protein (6.4-8.2) gm/dl Albumin (3.4-5.0) gm/dl Globulin (2.5-4.0) gm/dl Albumin/Globulin Ratio (0.9-2) COVID-19 Eval [facility] SARS-CoV-2, RNA, NAAT NEGATIVE (NEGATIVE) 12/03/20 12/03/20 12/03/20 Range/Units 11:23 11:03 11:03 WBC (4.8-10.8) K/uL RBC (4.7-6.1) M/uL Hgb (14.0-18.0) g/dL Hct (42-52) % MCV (80-100) fL MCH (25-34) pg MCHC (32-36) g/dL RDW Std Deviation (36.4-46.3) fL RDW Coeff of Thalia (11.5-14.5) % Plt Count (130-400) K/uL MPV (7.4-10.4) fL Immature Gran % (Auto) % Neut % (Auto) % Lymph % (Auto) % Greene % (Auto) % Eos % (Auto) % Baso % (Auto) % Neut # (Auto) (1.4-6.5) K/uL Lymph # (Auto) (1.2-3.4) K/uL Greene # (Auto) (0.11-0.59) K/uL Eos # (Auto) (0-0.5) K/uL Baso # (Auto) (0-0.2) K/uL Immature Gran # (Auto) (0.00-0.02) K/uL PT (9.0-12.0) Seconds INR (0.9-1.1) APTT (21.0-31.0) Seconds PTT Ratio VBG pH 7.38 (7.36-7.41) VBG pCO2 43 (38-50) mmHg VBG pO2 34 mmHg VBG HCO3 24 mmol/L VBG O2 Saturation 61.8 % VBG Base Excess -0.9 mEq/L Barometric Pressure 722.9 mm/Hg Sodium 140 (136-145) mmol/L Potassium 4.3 (3.5-5.1) mmol/L Chloride 108 H (98-107) mmol/L Carbon Dioxide 25 (21-32) mmol/L Anion Gap 7.0 (3-11) BUN 23 H (7-18) mg/dl Creatinine 1.42 H (0.6-1.4) mg/dl Est Cr Clr Drug Dosing 38.1 ml/min Est GFR ( Amer) 54.1 Est GFR (Non-Af Amer) 46.6 BUN/Creatinine Ratio 16.1 (10-20) Glucose 107 H (70-99) mg/dl POC Glucose (70-99) mg/dl Calcium 9.3 (8.5-10.1) mg/dl Phosphorus 3.0 (2.5-4.9) mg/dl Magnesium 1.8 (1.8-2.4) mg/dl Total Bilirubin 0.3 (0.2-1) mg/dl AST 21 (15-37) U/L ALT 41 (12-78) U/L Alkaline Phosphatase 148 H (45-117) U/L Troponin I < 0.015 (0-0.045) ng/ml NT-Pro-B Natriuret Pep 52 (0-1800) pg/ml Total Protein 8.2 (6.4-8.2) gm/dl Albumin 4.2 (3.4-5.0) gm/dl Globulin 4.0 (2.5-4.0) gm/dl Albumin/Globulin Ratio 1.0 (0.9-2) COVID-19 Eval Order SARS-CoV-2, RNA, NAAT (NEGATIVE) 12/03/20 12/03/20 Range/Units 11:03 11:03 WBC 11.04 H (4.8-10.8) K/uL RBC 5.28 (4.7-6.1) M/uL Hgb 14.3 (14.0-18.0) g/dL Hct 43.6 (42-52) % MCV 82.6 (80-100) fL MCH 27.1 (25-34) pg MCHC 32.8 (32-36) g/dL RDW Std Deviation 48.7 H (36.4-46.3) fL RDW Coeff of Thalia 16.1 H (11.5-14.5) % Plt Count 352 (130-400) K/uL MPV 10.5 H (7.4-10.4) fL Immature Gran % (Auto) 0.4 % Neut % (Auto) 62.9 % Lymph % (Auto) 17.7 % Greene % (Auto) 8.2 % Eos % (Auto) 9.6 % Baso % (Auto) 1.2 % Neut # (Auto) 6.96 H (1.4-6.5) K/uL Lymph # (Auto) 1.95 (1.2-3.4) K/uL Greene # (Auto) 0.90 H (0.11-0.59) K/uL Eos # (Auto) 1.06 H (0-0.5) K/uL Baso # (Auto) 0.13 (0-0.2) K/uL Immature Gran # (Auto) 0.04 H (0.00-0.02) K/uL PT 9.8 (9.0-12.0) Seconds INR 1.0 (0.9-1.1) APTT 23.4 (21.0-31.0) Seconds PTT Ratio 0.9 VBG pH (7.36-7.41) VBG pCO2 (38-50) mmHg VBG pO2 mmHg VBG HCO3 mmol/L VBG O2 Saturation % VBG Base Excess mEq/L Barometric Pressure mm/Hg Sodium (136-145) mmol/L Potassium (3.5-5.1) mmol/L Chloride (98-107) mmol/L Carbon Dioxide (21-32) mmol/L Anion Gap (3-11) BUN (7-18) mg/dl Creatinine (0.6-1.4) mg/dl Est Cr Clr Drug Dosing ml/min Est GFR ( Amer) Est GFR (Non-Af Amer) BUN/Creatinine Ratio (10-20) Glucose (70-99) mg/dl POC Glucose (70-99) mg/dl Calcium (8.5-10.1) mg/dl Phosphorus (2.5-4.9) mg/dl Magnesium (1.8-2.4) mg/dl Total Bilirubin (0.2-1) mg/dl AST (15-37) U/L ALT (12-78) U/L Alkaline Phosphatase (45-117) U/L Troponin I (0-0.045) ng/ml NT-Pro-B Natriuret Pep (0-1800) pg/ml Total Protein (6.4-8.2) gm/dl Albumin (3.4-5.0) gm/dl Globulin (2.5-4.0) gm/dl Albumin/Globulin Ratio (0.9-2) COVID-19 Eval Order SARS-CoV-2, RNA, NAAT (NEGATIVE) Medications Administered Current Inpatient Medications Acetaminophen (Acetaminophen 325 Mg Tab) 650 mg PO Q6H PRN PRN Reason: Pain or Fever Stop: 01/02/21 16:17 Al Hydrox/Mg Hydrox/Simethicone (Aluminum/Magnesium/Simeth (Maalox Max) 30 Ml Udc) 30 ml PO Q6H PRN PRN Reason: Heartburn Stop: 01/02/21 16:17 Albuterol (Albuterol Hfa 8 Gm Inhaler) 1 puffs INH QID PRN PRN Reason: Shortness Of Breath Stop: 01/02/21 16:30 Albuterol (Albut/Ipratrop 3mg/0.5mg Neb 3 Ml Vial) 3 ml INH Q6H PRN PRN Reason: wheezing Stop: 01/02/21 16:17 Aspirin (Aspirin 81 Mg Ectab) 81 mg PO QAM [facility] Stop: 01/03/21 08:59 Last Admin: 12/04/20 07:38 Dose: 81 mg Documented by: Azithromycin (Azithromycin 250 Mg Tab) 250 mg PO QAM [facility] Stop: 12/11/20 08:59 Last Admin: 12/04/20 07:37 Dose: 250 mg Documented by: Dextrose (Dextrose 50% 50 Ml Syringe) 25 - 50 ml IV UD PRN; Protocol PRN Reason: Hypoglycemia Protocol Stop: 01/02/21 16:59 Enoxaparin Sodium (Enoxaparin Inj 40 Mg/0.4 Ml Syr) 40 mg SQ Q24H [facility] Stop: 01/02/21 20:59 Last Admin: 12/03/20 21:15 Dose: 40 mg Documented by: Finasteride (Finasteride 5 Mg Tab) 5 mg PO QAM [facility] Stop: 01/03/21 08:59 Last Admin: 12/04/20 07:37 Dose: 5 mg Documented by: Fluticasone/Vilanterol (Fluticasone/Vilanterol 100/25mcg 14 Puffs/Inhaler) 1 puffs INH HS [facility]LEX Stop: 01/02/21 20:59 Last Admin: 12/03/20 21:15 Dose: 1 puffs Documented by: Glucagon (Glucagon For Inj 1 Mg Vial) 1 mg IM UD PRN; Protocol PRN Reason: Hypoglycemia Protocol Stop: 01/02/21 16:59 Glucose (Glucose 40% Gel 15 Gm Tube) 15 - 30 gm PO UD PRN; Protocol PRN Reason: Hypoglycemia Protocol Stop: 01/02/21 16:59 Glucose (Glucose 10 Tabs/Tube) 4 - 8 tabs PO UD PRN; Protocol PRN Reason: Hypoglycemia Protocol Stop: 01/02/21 16:59 Methylprednisolone 60 mg/ (Syringe) 0.96 mls @ 1.5 mls/min IV Q12H [facility] Stop: 01/02/21 20:59 Last Admin: 12/04/20 07:38 Dose: 1.5 mls/min Documented by: Insulin Aspart (Insulin Aspart 100 Units/Ml 3 Ml Pen) 0 units SC [facility]; Protocol Stop: 01/02/21 16:59 Last Admin: 12/04/20 07:57 Dose: 5 units Documented by: Insulin Glargine (Insulin Glargine Solostar 100 Units/Ml 3 Ml Pen) 20 units SC [facility]; Protocol Stop: 01/03/21 08:59 Last Admin: 12/04/20 08:51 Dose: 20 units Documented by: Magnesium Hydroxide (Magnesium Hydroxide Susp 30 Ml Udc) 30 ml PO Q6H PRN PRN Reason: Constipation Stop: 01/02/21 16:17 Methimazole (M[facility]im[facility] 5 Mg Tablet) [facility] Stop: 01/03/21 08:59 Last Admin: 12/04/20 07:37 Dose: 5 mg Documented by: Miscellaneous (Carbohydrates For Hypoglycemia ) 15 - 30 gm PO UD PRN PRN Reason: Hypoglycemia Treatment Stop: 01/02/21 16:59 Miscellaneous Information (Pharmacy Glycemic Mgmt Consult) 1 ea N/A UD PRN PRN Reason: Consult Stop: 01/02/21 16:47 Ondansetron HCl (Ondansetron Inj 2 Mg/Ml 2 Ml Vial) 4 mg IV Q8 PRN PRN Reason: Nausea Stop: 01/02/21 16:17 Pantoprazole Sodium (Pantoprazole 40 Mg Tab) 40 mg PO [facility] Stop: 01/03/21 08:59 Last Admin: 12/04/20 07:38 Dose: 40 mg Documented by: Vitamin D (Cholecalciferol 1,000 Units 25 Mcg Tab) 2,000 units PO [facility] Stop: 01/03/21 08:59 Last Admin: 12/04/20 07:35 Dose: 2,000 units Documented by: Zinc Sulfate (Zinc Sulfate 220 Mg Capsule) 220 mg PO [facility] Stop: 01/03/21 08:59 Last Admin: 12/04/20 07:35 Dose: 220 mg Documented by: Resident Activity Tracking Resident Involvement: Resident Care Provided Care Provided: Adult Hospital Medicine
[2020-12-04] MEDS ORDERED: INSULIN GLARGINE SOLOSTAR 100 UNITS/ML 3 ML PEN SC SCH (09:00)
[2020-12-04] MEDS ORDERED: DOXYCYCLINE HYCLATE 100 MG CAP PO SCH (10:45)
--- NOTE | 2020-12-04 11:05 | Pharmacy Report ---
Pharmacy Glycemic Short Note 2 - Date of Service December 04, 2020 - Glycemic Short BSG Results (Last 24 hours): 12/03/20 12/03/20 12/03/20 11:03 16:38 20:50 Glucose 107 H POC Glucose 220 H 136 H 12/04/20 12/04/20 12/04/20 00:08 04:04 07:03 Glucose 171 H POC Glucose 195 H 166 H 12/04/20 07:28 Glucose POC Glucose 161 H OUTPATIENT ANTIDIABETIC REGIMEN: * Metformin XR 500 mg PO AM * HbA1c = 6.9% (11/21/20) RISK FACTORS FOR INSULIN RESISTANCE: * Steroids: Solumedrol 60 mg IV Q12H * Infection: Doxycycline PO * Diet: T2DM ASSESSMENT: * Patient is a 80 yo M admitted secondary to an acute exacerbation of COPD. He has been started on PO azithromycin as well as methylprednisolone 60 mg IV Q12H. Expect steroids to lead to postprandial hyperglycemia. * BSGs last evening was 220-136-195 mg/dL. He did take his XR Metformin prior to admission yesterday. * He received 20 units of Lantus as well as 11 units of correctional/prandial insulin last evening. * Fasting BSG was 161 mg/dL this AM - above goal. * Gave another 20 units of Lantus this morning which was approximately weight/stress of three. * Methylprednisolone was changed to 60 mg IV daily later in the morning. * Initially changed his CR to 8 this morning but provider has tightened both CF/CR with his lunch. Will continue with provider's orders, but expecting patient not to require much correctional insulin today as Lantus dose was administered based on Q12H steroids. PLAN FOR INPATIENT GLYCEMIC CONTROL: * Hold outpatient oral diabetes medications * Basal insulin * Lantus 20 units SQ x 1 * Bolus insulin * NovoLog per scale ACHS or Q6hrs while NPO * Goal Range: Low 110 mg/dL - High 140 mg/dL * Correction Factor: 20 mg/dL/unit - per provider * Nutritional / Prandial insulin per carb ratio of 1 unit per 6 grams CHO consumed - per provider PLAN FOR DISCHARGE: * HbA1c was 6.9% earlier this month. This is at goal based on patient's age and comorbidities. Continue outpatient regimen upon discharge.
--- NOTE | 2020-12-04 16:05 | Billing Data ---
Date of Service December 04, 2020 Coding Level of Care Code 86028 Subseq Obs Care Lvl 3
[2020-12-04] MEDS: ENOXAPARIN INJ 40 MG/0.4 ML SYR SQ SCH (20:47)
[2020-12-04] MEDS: FLUTICASONE/VILANTEROL 100/25MCG 14 PUFFS/INHALER INH SCH (20:48)
[2020-12-05 07:12] LABS: Basophils # (auto) 0.04 K/uL (0-0.2); Basophils % (auto) 0.3 %; Eosinophils # (auto) 0.16 K/uL (0-0.5); Eosinophils % (auto) 1.1 %; Hematocrit (blood only) 40.9 % (42-52); Hemoglobin 13.7 g/dL (14.0-18.0); Immature Granulocytes # (auto) 0.06 K/uL (0.00-0.02); Immature Granulocytes % (auto) 0.4 %; Lymphocytes # (auto) 3.15 K/uL (1.2-3.4); Lymphocytes % (auto) 20.9 %; Mean Corpuscular Hemoglobin 27.2 pg (25-34); Mean Corpuscular Hgb Conc 33.5 g/dL (32-36); Mean Corpuscular Volume 81.2 fL (80-100); Mean Platelet Volume 10.6 fL (7.4-10.4); Monocytes % (auto) 6.6 %; Neutrophils # (auto) 10.66 K/uL (1.4-6.5); Neutrophils % (auto) 70.7 %; Platelet Count 317 K/uL (130-400); RDW Coefficient of Variation 16.1 % (11.5-14.5); RDW Standard Deviation 47.3 fL (36.4-46.3); Red Blood Count 5.04 M/uL (4.7-6.1); White Blood Count 15.07 K/uL (4.8-10.8)
[2020-12-05 07:48] LABS: BUN Creatinine Ratio 22.6 (10-20); Calcium 9.1 mg/dl (8.5-10.1); Creatinine Clr Calc Pharmacy 43.6 ml/min; Est GFR (Non-African American) 49.1
[2020-12-05] MEDS: INSULIN ASPART 100 UNITS/ML 3 ML PEN SC SCH (08:19)
[2020-12-05] MEDS: FINASTERIDE 5 MG TAB PO SCH (08:21)
[2020-12-05] MEDS: PANTOprazole 40 MG TAB PO SCH (08:21)
[2020-12-05] MEDS: ASPIRIN 81 MG ECTAB PO SCH (08:21)
[2020-12-05] MEDS: CHOLECALCIFEROL 1,000 UNITS 25 MCG TAB PO SCH (08:21)
[2020-12-05] MEDS: methIMAzole 5 MG TABLET PO SCH (08:21)
[2020-12-05] MEDS: AZITHROMYCIN 250 MG TAB PO SCH (08:21)
[2020-12-05] MEDS: ZINC SULFATE 220 MG CAPSULE PO SCH (08:22)
[2020-12-05] MEDS ORDERED: UMECLIDINIUM BROMIDE 62.5MCG/BLISTER 7 PUFFS/INHALER INH SCH ×2 (09:00)
[2020-12-05] MEDS ORDERED: methylPREDNISolone 60 MG in SYRINGE 0 ML IV SCH (09:00)
[2020-12-05] MEDS ORDERED: INSULIN GLARGINE SOLOSTAR 100 UNITS/ML 3 ML PEN SC SCH (09:00)
--- NOTE | 2020-12-05 09:56 | Discharge Summary ---
Date of Service December 05, 2020 Admission HPI Per Admitting Provider Mr. Mcmahan is a 80-year-old male with a history of COPD, Restrictive Lung Disease, Type 2 Diabetes Mellitus, Hyperlipidemia, Hyperthyroidism, GERD, Nephrolithiasis, and BPH who presents acutely to [facility] ER today complaining of Worsening SOB over the past 1 week. Patient was hospitalized here in mid October with a COPD exacerbation. He was treated with corticosteroids and azithromycin. He stayed overnight, and his breathing status had improved and he was discharged on 11/02/2020. He went home on a short course of oral steroids, and 5 days of antibiotics. At the end of that treatment, he was feeling quite well, and his breathing was back to baseline. However within a few days he began to note increasing dyspnea, intermittent cough, wheezing, and eventually shortness of breath at rest. In total he has had the symptoms for about 2 weeks, but over the past week they have gotten worse. He states that he he had a very difficult time catching his breath last night and this morning. He did a nebulizer treatment at home, but that did not help all that much. Once he was in the ER, he had a DuoNeb nebulizer treatment, and received dexamethasone 10 mg IV. He currently is feeling less short of breath, but is still working hard to breathe. He states that occasionally he does produce some greenish colored sputum when he coughs, but he usually does not bring much of anything up at all. Patient d enies any fever, chills, headache, stiff neck, or any chest discomfort. He denies any pleuritic chest discomfort. He denies any hemoptysis. Patient cannot think of anything in his environment that is new. He does have pets, but these are not new pets. He uses a heat pump to heat his home. He does not use a wood burner. He denies any exposure to COVID-19, and his COVID- 19 testing is negative. Patient was scheduled to have pulmonary function testing done on 12/06/2020 at [facility]. He was previously followed by Dr. Garcia. He is going to establish with Dr. Ovalles in the near future. Admission Exam Per Admitting Provider Mr. Mcmahan is a 80-year-old male with a history of COPD, Restrictive Lung Disease, Type 2 Diabetes Mellitus, Hyperlipidemia, Hyperthyroidism, GERD, Nephrolithiasis, and BPH who presents acutely to [facility] ER today complaining of Worsening SOB over the past 1 week. Patient was hospitalized here in mid October with a COPD exacerbation. He was treated with corticosteroids and azithromycin. He stayed overnight, and his breathing status had improved and he was discharged on 11/02/2020. He went home on a short course of oral steroids, and 5 days of antibiotics. At the end of that treatment, he was feeling quite well, and his breathing was back to baseline. However within a few days he began to note increasing dyspnea, intermittent cough, wheezing, and eventually shortness of breath at rest. In total he has had the symptoms for about 2 weeks, but over the past week they have gotten worse. He states that he he had a very difficult time catching his breath last night and this morning. He did a nebulizer treatment at home, but that did not help all that much. Once he was in the ER, he had a DuoNeb nebulizer treatment, and received dexamethasone 10 mg IV. He currently is feeling less short of breath, but is still working hard to breathe. He states that occasionally he does produce some greenish colored sputum when he coughs, but he usually does not bring much of anything up at all. Patient denies any fever, chills, headache, stiff neck, or any chest discomfort. He denies any pleuritic chest discomfort. He denies any hemoptysis. Patient cannot think of anything in his environment that is new. He does have pets, but these are not new pets. He uses a heat pump to heat his home. He does not use a wood burner. He denies any exposure to COVID-19, and his COVID- 19 testing is negative. Patient was scheduled to have pulmonary function testing done on 12/06/2020 at [facility]. He was previously followed by Dr. Garcia. He is going to establish with Dr. Ovalles in the near future. Principal Diagnosis Acute COPD exacerbation complicated by type 2 diabetes, restrictive lung disease, hypothyroidism Discharge Exam General: Elderly gentleman sitting in bed in no acute distress. HEENT: Normocephalic atraumatic Neck: Normal to visual inspection Cardiac: Regular rate and rhythm I did not appreciate significant murmurs rubs or gallops, normal S1, normal S2, negative pedal edema, negative calf tenderness Respiratory: Increased AP diameter, normalizing respiratory exam, normal breathing, scattered wheezes throughout all lung boo otherwise clear to auscultation bilaterally GI: Soft nontender nondistended bowel sounds present Neuro: Alert and oriented x4 Psych: Calm and cooperative with the interview Discharge Data Allergies Allergy/AdvReac Type Severity Reaction Status Date / Time Penicillins Allergy Severe SHORTNESS Verified 12/03/20 12:53 OF BREATH procaine Allergy Unknown FLUSHING Verified 12/03/20 12:53 AND SHORTNESS OF BREATH Consultations 12/03/20 13:23 ED Decision to Admit Stat Hospital Course (1) Acute exacerbation of chronic obstructive pulmonary disease (COPD): Mr. Mcmahan is a 80-year-old male with a history of COPD, Restrictive Lung Disease, Type 2 Diabetes Mellitus, Hyperlipidemia, Hyperthyroidism, GERD, Nephrolithiasis, and BPH who presents acutely to [facility] ER today with an Acute COPD Exacerbation without hypoxia. His O2 saturations on room air are 94% to 95%. Patient was hospitalized here in mid October with a COPD exacerbation. He was treated with corticosteroids and azithromycin. He stayed overnight, and his breathing status had improved and he was discharged on 11/02/2020. He went home on a short course of oral steroids, and 5 days of antibiotics. At the end of that treatment, he was feeling quite well, and his breathing was back to baseline. However within a few days he began to note increasing dyspnea, intermittent cough, wheezing, and eventually shortness of breath at rest. In total he has had these symptoms for about 2 weeks, but over the past week his dyspnea/shortness of breath has gotten much worse. He states that he he had a very difficult time catching his breath last night and this morning - thinking he was going to . He states that occasionally he does produce some greenish colored sputum when he coughs, but he usually does not bring much of anything up at all. Patient denies any fever, chills, headache, stiff neck, or any chest discomfort. He denies any pleuritic chest discomfort. He denies any hemoptysis. He did a nebulizer treatment at home, but that did not help all that much. He does have pets, but these are not new pets. He uses a heat pump to heat his home. He does not use a wood burner. He denies any exposure to COVID- 19, and his COVID-19 testing is negative.After arriving in the ER, he had a DuoNeb nebulizer treatment, and received IV Dexamethasone 10 mg. He improved overnight, however was still experiencing respiratory symptoms today. He was continued on Solu-Medrol, and azithromycin, and Spiriva was added to his regimen. The following day he reports his respiratory symptoms. Exam is sig nificantly better and subsequently discharged to complete steroid taper and azithromycin, and to continue Spiriva as an outpatient. #Acute exacerbation of chronic obstructive pulmonary disease -Complete azithromycin antibiotic course, day 2 of 5 -Complete prolonged steroid taper 60 mg for 3 days, 50 mg for 3 days, 40 mg for 3 days, 30 mg for 3 days, 20 mg for 3 days, 10 mg for 3 days -Continue Spiriva daily #COPD with mild restrictive pattern As evidenced by most recent PFTs, PFTs are scheduled for this Wednesday. Consider creating a plan for of action when the symptoms recur. -Encourage weight loss -Medications blood #Sinus tachycardia Presented with sinus tach thought to be secondary to steroid, adrenergic/allergic with nebulizer treatment, and increased work of breathing. -Monitor on telemetry #Diabetes type 2 Holding home Metformin while hospitalized -BSG QACHS. -SSI while hospitalized -Glargine 20 units every morning -Sugars have been a bit on the high side tighten aspart to CHO ratio to 1:6 and cf to 25 -Resume Metformin obesity #Hypothyroidism TSH was within normal limits at 1.790 uIU/ml on 11/01/2020. -Continued Methimazole 5 mg daily. FENa: Diabetic diet Code Status:Full DVT PPX: Lovenox PT/OT: Ordered Dispo: Home Yuri Mobley MD PGY 2, FCM This chart was completed utilizing [employer] voice recognition software. Grammatical errors, random word insertions, pronoun errors, and in complete sentences are an occasional consequence of the system. Any questions or concerns about the content, text, or information contained within the body of this dictation should be addressed directly to the physician for clarification. Total Time Total Time Spent Total Time Spent (In Minutes): <30 Discharge Plan Discharge Items Patient Disposition: Home - Self-Care Reason For Visit: COPD EXACERBATION Discharge Diagnosis: Acute COPD exacerbation complicated by type 2 diabetes, restrictive lung disease, hypothyroidism Activity: Resume your previous activity Non-emergency contact: Primary Care Provider Call non-emergency contact if: you have any medication questions, your symptoms worsen and your temperature is above 101.5 Follow-up/Referrals: Cristobal Galo MD [Primary Care Provider] - 12/12/20 3:30 pm (You have an appt with Dr. Galo on 12/12 @ 330pm. Please arrive 15 minutes prior to your appt. It is important that you keep this appt, if for any reason this appt does not fit your schedule, please call [phone] to reschedule. ) Diet: Carb Consistent or DM2 Addtl Attending Provider Instructions: Care instructions: You were admitted to [facility] for treatment of COPD exacerbation. While hospitalized your provided antibiotics, steroids, and respiratory therapy leading to significant improvement in your presenting sy mptoms. On the day of discharge he felt that his breathing was almost back to baseline, and that we were improved from the symptoms for which he presented. We will be discharging you on a anticholinergic inhaler, course of antibiotics and prolonged steroid taper. 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 Azithromycin: Please can continue to take 1/day until there are no more pills remaining, for a total of 3 days Prednisone: Please take 6 pills/day for 3 days, 5 pills/day for 3 days, 4 pills/day for 3 days, 3 pills/day for 3 days, 2 pills/day for 3 days, 1 pill/day for 3 days. Spiriva: Please take 2 puffs/day A discharge summary will be sent to your primary care physician to ensure continuity of care. Please bring this discharge summary with you to your next office appointment so that your provider can review it at that time. Follow-up appointments: - Keep all your follow-up appointments as already scheduled. If you cannot make an appointment, notify your provider. - Please call to request a follow-up appointment with your primary care physician within one week of discharge. Please let us know if you are unable to obtain an appointment Medications: - Your medication list has been reviewed and reconciled upon discharge to ensure accuracy and continuity of care. - You are provided with a list of all your current medications at this time. Please review this list closely and make note of any changes. - Please take all of your medications exactly as prescribed. - Tell your primary care provider if you cannot afford your medications. - Call your primary care provider if you are having any side effects or any other problems. - Call your primary care provider before taking any over the counter medications or supplements, including herbals and vitamins, because some of these may interact with your current medications and/or make your symptoms worse. Symptoms: Please call your primary care provider for symptoms including, but not limited to: fevers (temperatures greater than 100.4), chills, intractable nausea or vomiting, diarrhea, rash, shortness of breath, bleeding, pain, or if you experience any worsening of the symptoms that brought you to the hospital. For EMERGENCY and VERY SERIOUS health-related issues, such as chest pain, shortness of breath, or sudden onset of the symptoms that brought you to the hospital, you may need to call 911 or go directly to the Emergency Room It has been our privilege to take care of you during your hospital stay. And Above All Else Feel Better! Best Wishes, Yuri Mobley MD PGY2 Resident, Family & Community Medicine [facility] Residency at [address], [address] MC: [place] [address] Pending Studies at Discharge: No Stand-Alone Forms: My [facility], Smoking Cessation Medications and DC Order Prescriptions: New azithromycin 250 mg Tablet 250 mg PO QAM Qty: 3 RF: 0 Spiriva Respimat 2.5 mcg/actuation mist 2 inh inhalation DAILY 30 Days Qty: 4 RF: 0 prednisone 10 mg tablet 10 mg PO DAILY Qty: 63 RF: 0 Continued albuterol sulfate [ProAir HFA] 90 mcg/actuation HFA aerosol inhaler 1 puff Inhalation DIRECTED PRN (Reason: Shortness Of Breath) Qty: 18 RF: 1 (DME) OneTouch Ultra Blue Test Strip Strip See Rx Instructions .ROUTE .MEDSUPPLY Qty: 100 RF: 3 (DME) nebulizers Misc See Rx Instructions .ROUTE .MEDSUPPLY Qty: 1 RF: 0 ipratropium-albuterol 0.5 mg-3 mg(2.5 mg base)/3 mL solution for nebulization 3 ml inhalation Q6H PRN (Reason: wheezing) Qty: 180 RF: 3 (DME) blood-glucose meter [OneTouch Ultra2 Meter] Kit See Rx Instructions .ROUTE .MEDSUPPLY Qty: 1 RF: 0 (DME) lancets [OneTouch UltraSoft Lancets] Misc See Rx Instructions .ROUTE .MEDSUPPLY Qty: 100 RF: 3 aspirin 81 mg Tablet,Delayed Release (Dr/Ec) 81 mg PO QAM RF: 0 zinc 50 mg Tablet 0 mg PO QAM RF: 0 cholecalciferol (vitamin D3) [Vitamin D3] 25 mcg (1,000 unit) Tablet 2,000 unit PO QAM RF: 0 pantoprazole 40 mg tablet,delayed release (DR/EC) 40 mg PO QAM RF: 0 methimazole 5 mg tablet 5 mg PO QAM RF: 0 metformin 500 mg tablet extended release 24 hr 500 mg PO QAM RF: 0 finasteride 5 mg tablet 5 mg PO QAM RF: 0 Breo Ellipta 100-25 mcg/dose blister with device 1 inh inhalation HS RF: 0 Discharge Orders: Discharge Order (Routine); Ordered 12/05/20 Ordered By: Yuri Mobley Admission Data Admit Date/Time: 12/03/20 14:37 Attending Provider: Aly Pena Admit Provider: Ryley Wright Primary Care Provider: Cristobal Galo Other Providers: Ryley Wright Other Interventions: Discharge Summary Assessment (RN) Last Done: 12/05/20 11:05 Supervising Physician Co-Signing Physician Notes I personally examined the patient and verified all abdi points of history and exam, discussed case, and agree with decision making with Dr Mobley. Generally feeling better, and feeling up to going home. Breathing is better than before. Vitals noted, in general he is awake and alert pleasant no distress. HEENT normocephalic atraumatic mucous membranes moist. Lungs faint expiratory rhonchus mostly basilar right slightly coarse on exhalation the left base to mid but overall fairly clear no other overt rales rhonchi or wheezes good effort, no accessory muscle use no conversational dyspnea. Skin shows no rashes no pallor or icterus. COPD exacerbationfinish course of Zithromax, steroid taper. Added anticholinergic inhaler. Continue long-acting beta agonist and long-acting steroid. Stable for discharge to home today. Close outpatient pulmonary follow-uphe is actually scheduled to be seen tomorrow. DVT prophylaxis Lovenox Otherwise as above Resident Activity Tracking Resident Involvement: Resident Care Provided Care Provided: Adult Hospital Medicine
--- NOTE | 2020-12-05 16:33 | Billing Data ---
Date of Service December 05, 2020 Coding Level of Care Code 76730 OBS Care - Discharge
== END 2020-12-05 11:50 | disposition home or self-care (01) ==
LOC: 2W 10:44 → ED 10:44 → SUATTDRO 14:37 → 2W 15:27

== ENCOUNTER 2021-01-23 08:33 | Observation (INO) ==
--- NOTE | 2021-01-23 09:07 | Emergency Department Note ---
History of Present Illness General Chief complaint: Back Injury/Pain Time Seen by Provider: 01/23/21 11:12 History of Present Illness Maximum Pain Intensity: 9 80-year-old male with a past medical history of pulmonary nodule, GERD diabetes type 2, hypothyroidism, COPD, BPH, nephrolithiasis presents for evaluation of back pain that started approximately 4 AM concerning for a kidney stone. The patient was in his usual state of health when he was awoken from sleep at approximately 4 AM he had significant back pain. He dealt with the back pain for period of time before calling the aid for assistance. His pain became so severe he vomited due to the pain, he also endorsed fever and chills. Patient reports voiding normally, no overt blood or abnormal colors or odors to his urine. He denies pain with urination or increased urinary frequency. He endorses 9 out of 10 back pain and relates it is similar to his prior kidney stone. He denies any shortness of breath, chest pressure, chest pain, recent weight loss, motor symptoms, sensory symptoms. Home Medications Medication Instructions Recorded Confirmed Type Breo Ellipta 1 inh INHALATION HS 11/01/20 01/23/21 History cholecalciferol (vitamin D3) 2,000 unit PO QAM 11/01/20 01/23/21 History [Vitamin D3] finasteride 5 mg PO QAM 11/01/20 01/23/21 History methimazole 5 mg PO QAM 11/01/20 01/23/21 History pantoprazole 40 mg PO QAM 11/01/20 01/23/21 History zinc 50 mg PO QAM 11/01/20 01/23/21 History OneTouch Ultra Blue Test Strip #100 ea NS 11/07/20 12/24/20 Rx OneTouch Ultra2 Meter #1 ea NS 11/07/20 12/24/20 Rx OneTouch UltraSoft Lancets #100 ea NS 11/07/20 12/24/20 Rx ipratropium 0.5 mg-albuterol 3 mg 3 ml INHALATION Q6H PRN #180 ml 11/07/20 01/23/21 Rx (2.5 mg base)/3 mL nebulization soln nebulizers #1 ea 11/07/20 12/24/20 Rx albuterol sulfate 90 mcg/actuation 1 puff INHALATION DIRECTED PRN 11/20/20 0 01/23/21 Rx aerosol inhaler #18 g aspirin 81 mg PO QAM 12/03/20 01/23/21 History umeclidinium 62.5 mcg/actuation 1 inh INHALATION DAILY #30 ea 12/06/20 01/23/21 Rx blister powder for inhalation acetaminophen 650 mg PO Q4H PRN #30 tab 01/24/21 Rx ciprofloxacin HCl [Cipro] 500 mg PO BID #8 tab 01/24/21 Rx metformin 500 mg PO BID #60 tab 01/24/21 Rx metoprolol succinate 25 mg PO DAILY #30 tab 01/24/21 Rx Allergies Allergy/AdvReac Type Severity Reaction Status Date / Time Penicillins Allergy Severe SHORTNESS Verified 01/23/21 11:03 OF BREATH procaine Allergy Unknown FLUSHING Verified 01/23/21 11:03 AND SHORTNESS OF BREATH Past Med/Surg History Medical History Acute exacerbation of chronic obstructive pulmonary disease (COPD) BPH (benign prostatic hyperplasia) Carcinoma of right eyelid Chronic obstructive pulmonary disease inhalers daily/prn COPD (chronic obstructive pulmonary disease) Cyst in hand right hand 06/2019 GERD (gastroesophageal reflux disease) Hearing loss History of colon polyps Hyperthyroidism Hypertriglyceridemia Kidney stones Melanoma Of the right eyelid Renal insufficiency Restrictive lung disease Shortness of breath at rest Tubulovillous adenoma Type 2 diabetes mellitus Vitamin D insufficiency Surgical History H/O: knee surgery RT TENDON REPAIR History of cardiac cath HEART CATH X 2/NO STENTS History of colon resection BENIGN History of colonoscopy History of ear surgery History of eyelid surgery right d/t cancer History of rectal surgery GROWTH REMOVAL History of tonsillectomy and adenoidectomy History of tooth extraction Hx of transurethral resection of prostate Family History Brother Type 2 diabetes mellitus Aunt Type 2 diabetes mellitus Myocardial infarction Social History Smoking Status: Never smoker Tobacco Type: Cigarettes Age Started Using Tobacco: 9; Age Quit Using Tobacco: 73; packs per day: 1; Years Smoked: 64; Second Hand Exposure: No; Hx Alcohol Use: No Hx Substance Use: No Preferred Language: Mongolian Communication Ability: Effective Visual Impairment: Limited Hearing Ability: Use of Hearing Aid Fire Prevention Forester Required: No Beliefs That Will Affect Care: None marital status: Current Living Situation: Spouse current occupational status: retired Feels Safe at Home: Yes Childhood Exposure to Second-Hand Smoke: Yes caffeine: Yes Dental Care, Regularly: No Physical Activity Frequency: Daily Physical Activity Frequency Comment: walk Seatbelt Use: always Sunscreen Use: No (stays out of the sun) Do you think of yourself as: straight/heterosexual Assistive Devices: Glasses Review of Systems See HPI for pertinent positives & negatives. Physical Exam Vital Signs Vital Signs - 24 hr 01/23/21 08:55 01/23/21 08:58 Temperature 36.5 C Temperature Source Oral Oral Pulse Rate 93 H Respiratory Rate 24 Respiratory Effort / Characteristics Non-Labored Respiratory Depth Normal Normal Respiratory Pattern Regular Blood Pressure 168/109 H Blood Pressure Mean 128 Blood Pressure Position Sitting Pulse Oximetry 96 Oxygen Delivery Method Room Air Room Air Sepsis Recent Fever Within 48 Hours No Sepsis New/Unexplained Change in Mental Status No Sepsis Action Taken by Nursing No Action Required General: Elderly gentleman lying in bed in pain HEENT: Normocephalic atraumatic Neck: Normal to visual inspection, trachea midline Cardiac: Tachycardic with regular rhythm, no significant murmurs rubs or gallops appreciated, normal S1, normal S2, negative pedal edema, negative calf tenderness Respiratory: Clear to auscultation bilaterally with symmetrical chest expansion did not appreciate any bilateral scattered wheezes, no rhonchi, no rales, no increased work of breathing GI: Soft, nontender, nondistended, bowel sounds present in all 4 quadrants, positive for CVA on the right MSK: Moves all extremities Neuro: Alert and oriented x3 Psych: Calm and cooperative with the interview Course Administered Medications Discontinued Medications Acetaminophen (Acetaminophen 325 Mg Tab) 650 mg PO Q4H PRN PRN Reason: Pain or Agitation Stop: 02/22/21 11:56 Last Admin: 01/23/21 22:35 Dose: 650 mg Documented by: [id number] Albuterol (Albut/Ipratrop 3mg/0.5mg Neb 3 Ml Vial) 3 ml NEB NOW STA Stop: 01/23/21 13:43 Last Admin: 01/23/21 13:55 Dose: 3 ml Documented by: [id number] Finasteride (Finasteride 5 Mg Tab) 5 mg PO QAM ALEX Stop: 02/23/21 08:59 Last Admin: 01/24/21 08:09 Dose: 5 mg Documented by: [id number] Fluticasone/Vilanterol (Fluticasone/Vilanterol 100/25mcg 14 Puffs/Inhaler) 1 puffs INH HS ALEX Stop: 02/22/21 21:38 Last Admin: 01/23/21 22:30 Dose: 1 puffs Documented by: [id number] Hydromorphone HCl (Hydromorphone Inj 0.5 Mg/0.5 Ml Syr) 0.5 mg IV Q1H PRN PRN Reason: Pain (6,7,8,9,10) Stop: 02/06/21 08:55 Last Admin: 01/23/21 12:51 Dose: 0.5 mg Documented by: [id number] Admin: 01/23/21 10:05 Dose: 0.5 mg Documented by: [id number] Admin: 01/23/21 09:23 Dose: 0.5 mg Documented by: [id number] Lactated Ringer's (Lr) 1,000 mls @ 150 mls/hr IV .Q6H40M ALEX Stop: 02/22/21 08:59 Last Infusion: 01/24/21 12:13 Dose: 0 mls/hr Documented by: [id number] Admin: 01/24/21 06:11 Dose: 150 mls/hr Documented by: [id number] Infusion: 01/24/21 05:20 Dose: 150 mls/hr Documented by: [id number] Admin: 01/23/21 22:39 Dose: 150 mls/hr Documented by: [id number] Admin: 01/23/21 21:41 Dose: Not Given Documented by: [id number] Infusion: 01/23/21 16:04 Dose: 150 mls/hr Documented by: [id number] Admin: 01/23/21 09:23 Dose: 150 mls/hr Documented by: [id number] Lactated Ringer's (Lr) 500 mls @ 999 mls/hr IV .Q31M ONE Stop: 01/23/21 10:24 Last Infusion: 01/23/21 10:27 Dose: 0 mls/hr Documented by: [id number] Admin: 01/23/21 09:56 Dose: 999 mls/hr Documented by: [id number] Cefepime HCl (Maxipime) 2,000 mg in 20 mls @ 5 mls/min IV NOW STA; Protocol Stop: 01/23/21 10:23 Last Admin: 01/23/21 11:34 Dose: 5 mls/min Documented by: [id number] Cefepime HCl 1,000 mg/ Syringe 11.3 mls @ 5.5 mls/min IV Q24H [facility]; Protocol Stop: 02/03/21 08:59 Last Admin: 01/24/21 08:11 Dose: 5.5 mls/min Documented by: [id number] Insulin Aspart (Insulin Aspart 100 Units/Ml 3 Ml Pen) 0 units SC ACHS [facility] Stop: 02/22/21 16:29 Last Admin: 01/24/21 17:48 Dose: 6 units Documented by: [id number] Cosigned by: [id number] Admin: 01/24/21 12:20 Dose: 2 units Documented by: [id number] Cosigned by: [id number] Admin: 01/24/21 08:07 Dose: 6 units Documented by: [id number] Cosigned by: [id number] Admin: 01/23/21 22:32 Dose: 7 units Documented by: [id number] Cosigned by: [id number] Admin: 01/23/21 21:41 Dose: Not Given Documented by: [id number] Cosigned by: [id number] Insulin Aspart (Insulin Aspart 100 Units/Ml 3 Ml Pen) 0 units SC 0000,0400 [facility] Stop: 01/24/21 04:01 Last Admin: 01/24/21 04:17 Dose: Not Given Documented by: [id number] Admin: 01/24/21 00:02 Dose: 3 units Documented by: [id number] Cosigned by: [id number] Insulin Human Regular (Novolin-R Insulin Per Unit Charge) 8 units SC NOW STA Stop: 01/23/21 10:17 Last Admin: 01/23/21 11:12 Dose: 8 units Documented by: [id number] Cosigned by: [id number] Methimazole (Methimazole 5 Mg Tablet) 5 mg PO QAM [facility] Stop: 02/23/21 08:59 Last Admin: 01/24/21 08:09 Dose: 5 mg Documented by: [id number] Ondansetron HCl (Ondansetron Inj 2 Mg/Ml 2 Ml Vial) 4 mg IV NOW STA Stop: 01/23/21 10:01 Last Admin: 01/23/21 10:05 Dose: 4 mg Documented by: [id number] Pantoprazole Sodium (Pantoprazole 40 Mg Tab) 40 mg PO QAM ALEX Stop: 02/23/21 08:59 Last Admin: 01/24/21 08:09 Dose: 40 mg Documented by: [id number] Tamsulosin HCl (Tamsulosin Hcl 0.4 Mg Cap) 0.4 mg PO NOW ONE Stop: 01/23/21 10:17 Last Admin: 01/23/21 11:14 Dose: 0.4 mg Documented by: [id number] Umeclidinium Rozel (Umeclidinium Rozel 62.5mcg/Blister 7 Puffs/Inhaler) 1 puffs INH DAILY ALEX Stop: 02/22/21 11:56 Last Admin: 01/23/21 21:41 Dose: Not Given Documented by: [id number] Umeclidinium Rozel (Umeclidinium Rozel 62.5mcg/Blister 7 Puffs/Inhaler) 1 puffs INH HS ALEX Stop: 02/22/21 22:29 Last Admin: 01/23/21 22:31 Dose: Not Given Documented by: [id number] Medical Decision Making Differential Diagnosis Renal colic, UTI, appendicitis, diverticulitis, mesenteric ischemia, aortic pathology, infections, inflammatory bowel disease, PUD, biliary pathology, as well as other pathologies. Medical Records Attestation: I reviewed the patient's medical records. Home Medications Current Medication List: was personally reviewed by me Laboratory Data Attestation: I reviewed the patient's lab results. Result diagrams: 01/24/21 05:38 01/24/21 05:38 Lab Results 01/23/21 01/23/21 01/23/21 Range/Units 08:50 08:50 09:20 WBC 21.61 H (4.8-10.8) K/uL RBC 5.11 (4.7-6.1) M/uL Hgb 14.2 (14.0-18.0) g/dL Hct 41.8 L (42-52) % MCV 81.8 (80-100) fL MCH 27.8 (25-34) pg MCHC 34.0 (32-36) g/dL RDW Std Deviation 51.7 H (36.4-46.3) fL RDW Coeff of Thalia 17.2 H (11.5-14.5) % Plt Count 298 (130-400) K/uL MPV 10.9 H (7.4-10.4) fL Immature Gran % (Auto) 0.2 % Neut % (Auto) 87.5 % Lymph % (Auto) 4.2 % [place] % (Auto) 7.5 % Eos % (Auto) 0.4 % Baso % (Auto) 0.2 % Neut # (Auto) 18.89 H (1.4-6.5) K/uL Lymph # (Auto) 0.91 L (1.2-3.4) K/uL [place] # (Auto) 1.63 H (0.11-0.59) K/uL Eos # (Auto) 0.08 (0-0.5) K/uL Baso # (Auto) 0.05 (0-0.2) K/uL Immature Gran # (Auto) 0.05 H (0.00-0.02) K/uL Sodium 134 L (136-145) mmol/L Potassium 4.4 (3.5-5.1) mmol/L Chloride 103 (98-107) mmol/L Carbon Dioxide 21 (21-32) mmol/L Anion Gap 11.0 (3-11) BUN 25 H (7-18) mg/dl Creatinine 1.76 H (0.6-1.4) mg/dl Est Cr Clr Drug Dosing 30.7 ml/min Est GFR ( Amer) 41.7 Est GFR (Non-Af Amer) 36.0 BUN/Creatinine Ratio 14.3 (10-20) Glucose 345 H* (70-99) mg/dl Lactate 2.3 H* (0.4-2.0) mmol/L Calcium 9.3 (8.5-10.1) mg/dl Magnesium 1.8 (1.8-2.4) mg/dl Total Bilirubin 0.4 (0.2-1) mg/dl AST 20 (15-37) U/L ALT 33 (12-78) U/L Alkaline Phosphatase 141 H (45-117) U/L C-Reactive Protein (0-0.29) mg/dl Total Protein 7.7 (6.4-8.2) gm/dl Albumin 4.0 (3.4-5.0) gm/dl Globulin 3.7 (2.5-4.0) gm/dl Albumin/Globulin Ratio 1.1 (0.9-2) Beta-Hydroxybutyric Acd (0.2-2.81) mg/dl Procalcitonin (0-0.5) ng/ml TSH (0.300-4.500) uIu/ml Specimen Hemolysis Urine Color Urine Appearance (Clear) Urine pH (4.5-7.5) Ur Specific [place] (1.000-1.030) Urine Protein (Negative) Urine Glucose (UA) (Negative) Urine Ketones (Negative) Urine Blood (Negative) Urine Nitrite (Negative) Urine Bilirubin (Negative) Urine Urobilinogen (Negative) Ur Leukocyte Esterase (Negative) Urine WBC (Auto) (0-5) /hpf Urine RBC (Auto) (0-4) /hpf U Hyaline Cast (Auto) (0-5) /lpf U Epithel Cells (Auto) (0-5) /lpf Urine Bacteria (Auto) (Negative) COVID-19 Eval Order SARS-CoV-2 (PCR) (Negative) Influenza Type A (PCR) (Neg) Influenza Type B (PCR) (Neg) RSV (RT-PCR) (Neg) 01/23/21 01/23/21 01/23/21 Range/Units 10:50 11:00 11:00 WBC (4.8-10.8) K/uL RBC (4.7-6.1) M/uL Hgb (14.0-18.0) g/dL Hct (42-52) % MCV (80-100) fL MCH (25-34) pg MCHC (32-36) g/dL RDW Std Deviation (36.4-46.3) fL RDW Coeff of Thalia (11.5-14.5) % Plt Count (130-400) K/uL MPV (7.4-10.4) fL Immature Gran % (Auto) % Neut % (Auto) % Lymph % (Auto) % [place] % (Auto) % Eos % (Auto) % Baso % (Auto) % Neut # (Auto) (1.4-6.5) K/uL Lymph # (Auto) (1.2-3.4) K/uL [place] # (Auto) (0.11-0.59) K/uL Eos # (Auto) (0-0.5) K/uL Baso # (Auto) (0-0.2) K/uL Immature Gran # (Auto) (0.00-0.02) K/uL Sodium (136-145) mmol/L Potassium (3.5-5.1) mmol/L Chloride (98-107) mmol/L Carbon Dioxide (21-32) mmol/L Anion Gap (3-11) BUN (7-18) mg/dl Creatinine (0.6-1.4) mg/dl Est Cr Clr Drug Dosing ml/min Est GFR ( Amer) Est GFR (Non-Af Amer) BUN/Creatinine Ratio (10-20) Glucose (70-99) mg/dl Lactate (0.4-2.0) mmol/L Calcium (8.5-10.1) mg/dl Magnesium (1.8-2.4) mg/dl Total Bilirubin (0.2-1) mg/dl AST (15-37) U/L ALT (12-78) U/L Alkaline Phosphatase (45-117) U/L C-Reactive Protein (0-0.29) mg/dl Total Protein (6.4-8.2) gm/dl Albumin (3.4-5.0) gm/dl Globulin (2.5-4.0) gm/dl Albumin/Globulin Ratio (0.9-2) Beta-Hydroxybutyric Acd (0.2-2.81) mg/dl Procalcitonin (0-0.5) ng/ml TSH (0.300-4.500) uIu/ml Specimen Hemolysis Urine Color Yellow Urine Appearance Clear (Clear) Urine pH 5.0 (4.5-7.5) Ur Specific [place] 1.026 (1.000-1.030) Urine Protein 1+ H (Negative) Urine Glucose (UA) 3+ H (Negative) Urine Ketones 1+ H (Negative) Urine Blood 1+ H (Negative) Urine Nitrite Negative (Negative) Urine Bilirubin Negative (Negative) Urine Urobilinogen Negative (Negative) Ur Leukocyte Esterase Negative (Negative) Urine WBC (Auto) 1-5 (0-5) /hpf Urine RBC (Auto) 0-4 (0-4) /hpf U Hyaline Cast (Auto) 0 (0-5) /lpf U Epithel Cells (Auto) 0-5 (0-5) /lpf Urine Bacteria (Auto) Negative (Negative) COVID-19 Eval Order CovFluRsv at [facility] SARS-CoV-2 (PCR) NEGATIVE (Negative) Influenza Type A (PCR) Negative (Neg) Influenza Type B (PCR) Negative (Neg) RSV (RT-PCR) Negative (Neg) 01/23/21 01/23/21 01/23/21 Range/Units 11:24 11:26 11:26 WBC (4.8-10.8) K/uL RBC (4.7-6.1) M/uL Hgb (14.0-18.0) g/dL Hct (42-52) % MCV (80-100) fL MCH (25-34) pg MCHC (32-36) g/dL RDW Std Deviation (36.4-46.3) fL RDW Coeff of Thalia (11.5-14.5) % Plt Count (130-400) K/uL MPV (7.4-10.4) fL Immature Gran % (Auto) % Neut % (Auto) % Lymph % (Auto) % [place] % (Auto) % Eos % (Auto) % Baso % (Auto) % Neut # (Auto) (1.4-6.5) K/uL Lymph # (Auto) (1.2-3.4) K/uL [place] # (Auto) (0.11-0.59) K/uL Eos # (Auto) (0-0.5) K/uL Baso # (Auto) (0-0.2) K/uL Immature Gran # (Auto) (0.00-0.02) K/uL Sodium (136-145) mmol/L Potassium (3.5-5.1) mmol/L Chloride (98-107) mmol/L Carbon Dioxide (21-32) mmol/L Anion Gap (3-11) BUN (7-18) mg/dl Creatinine (0.6-1.4) mg/dl Est Cr Clr Drug Dosing ml/min Est GFR ( Amer) Est GFR (Non-Af Amer) BUN/Creatinine Ratio (10-20) Glucose (70-99) mg/dl Lactate 1.9 (0.4-2.0) mmol/L Calcium (8.5-10.1) mg/dl Magnesium (1.8-2.4) mg/dl Total Bilirubin (0.2-1) mg/dl AST (15-37) U/L ALT (12-78) U/L Alkaline Phosphatase (45-117) U/L C-Reactive Protein 1.69 H (0-0.29) mg/dl Total Protein (6.4-8.2) gm/dl Albumin (3.4-5.0) gm/dl Globulin (2.5-4.0) gm/dl Albumin/Globulin Ratio (0.9-2) Beta-Hydroxybutyric Acd (0.2-2.81) mg/dl Procalcitonin < 0.05 (0-0.5) ng/ml TSH 1.880 (0.300-4.500) uIu/ml Specimen Hemolysis Urine Color Urine Appearance (Clear) Urine pH (4.5-7.5) Ur Specific [place] (1.000-1.030) Urine Protein (Negative) Urine Glucose (UA) (Negative) Urine Ketones (Negative) Urine Blood (Negative) Urine Nitrite (Negative) Urine Bilirubin (Negative) Urine Urobilinogen (Negative) Ur Leukocyte Esterase (Negative) Urine WBC (Auto) (0-5) /hpf Urine RBC (Auto) (0-4) /hpf U Hyaline Cast (Auto) (0-5) /lpf U Epithel Cells (Auto) (0-5) /lpf Urine Bacteria (Auto) (Negative) COVID-19 Eval Order SARS-CoV-2 (PCR) (Negative) Influenza Type A (PCR) (Neg) Influenza Type B (PCR) (Neg) RSV (RT-PCR) (Neg) Imaging Data Radiologist's Impression: Abdomen/Pelvis CT 01/23/21 08:56 CT OF THE ABDOMEN AND PELVIS WITHOUT CONTRAST CLINICAL HISTORY: Kidney stone. Left flank pain. COMPARISON STUDY: Renal ultrasound November 09, 2014. TECHNIQUE: Axial images of the abdomen and pelvis were obtained without IV contrast. Images were reviewed in the axial, sagittal, and coronal planes. Automated exposure control was utilized for the study. A dose lowering technique was utilized adhering to the principles of ALARA. FINDINGS: A 2 mm distal left ureteral calculus just proximal to the ureterovesical junction results in mild left hydroureteronephrosis. There is moderate left perinephric infiltration and fluid. No additional urinary calculi are identified. Evaluation the remainder of the abdomen and pelvis is suboptimal on this unenhanced examination. Hepatic steatosis is noted. The spleen, adrenal glands and pancreas are unremarkable. There is no evidence for a bowel obstruction. Appendix is normal. There is colonic diverticulosis without evidence for acute diverticulitis. No suspicious osseous lesions are noted. There is no lymphadenopathy. IMPRESSION: 1. 2 mm distal left ureteral calculus which results in mild hydroureteronephrosis with moderate left perinephric fluid and infiltration. 2. Hepatic steatosis. ACT 112: Negative or not required by law. Electronically signed by: Pa Dickinson M.D. 01/23/2021 10:08 AM ECG Data Attestation: I personally reviewed and interpreted this ECG as follows: Indication: + tachycardia Rate (beats per minute): 118 Rhythm: + sinus tachycardia ECG Intervals/blocks: + Incomplete right bundle branch block and + Prolonged QT (479) ECG [place]: + Normal ECG ST segments: + repolarization abnormalities ECG Findings: + PACs Blood Pressure Blood Pressure Findings: Normal blood pressure Blood Pressure Disposition: did not require urgent referral MDM Narrative This pt was seen with resident Yuri Mobley MD. This pt was evaluated and appeared to be in some discomfort. IV access was obtained and lab work was drawn. An order was placed and lab work was drawn. Pt was hydrated with NSS, given IV dilaudid and IV zofran. Lab work reveals a mild elevation of the lactate to 2.3 with a WBC of 21.6. Creat was 1.76 with glucose of 345. Pt was given IV cefepime and 8U SQ regular insulin. CT imaging reveals a 2mm L distal ureteral calculus with hydronephrosis and hydroureter. Given abnl lab work, advanced age, and obstructing stone pt was d/w the hospitalist for further management. Pt was aware of the plan for admission and agreed. Impression & Plan Nephrolithiasis, Leukocytosis, High serum lactate Discharge Plan Visit Data Chief Complaint: Back Injury/Pain ED Provider: Hannah Pearce ED Midlevel Provider: Yuri Mobley I. Discharge Problem: Nephrolithiasis, Leukocytosis, High serum lactate Patient Disposition: Still a Patient Condition: Good Discharge Instructions Interventions: ED Discharge Assessment Last Done: 01/23/21 12:55 Resident Activity Tracking Resident Involvement: Resident Care Provided Care Provided: Adult Hospital Medicine
[2021-01-23 09:23] LABS: Basophils # (auto) 0.05 K/uL (0-0.2); Basophils % (auto) 0.2 %; Eosinophils # (auto) 0.08 K/uL (0-0.5); Eosinophils % (auto) 0.4 %; Hematocrit (blood only) 41.8 % (42-52); Hemoglobin 14.2 g/dL (14.0-18.0); Immature Granulocytes # (auto) 0.05 K/uL (0.00-0.02); Immature Granulocytes % (auto) 0.2 %; Lymphocytes # (auto) 0.91 K/uL (1.2-3.4); Lymphocytes % (auto) 4.2 %; Mean Corpuscular Hemoglobin 27.8 pg (25-34); Mean Corpuscular Volume 81.8 fL (80-100); Mean Platelet Volume 10.9 fL (7.4-10.4); Monocytes # (auto) 1.63 K/uL (0.11-0.59); Monocytes % (auto) 7.5 %; Neutrophils # (auto) 18.89 K/uL (1.4-6.5); Neutrophils % (auto) 87.5 %; Platelet Count 298 K/uL (130-400); RDW Coefficient of Variation 17.2 % (11.5-14.5); RDW Standard Deviation 51.7 fL (36.4-46.3); Red Blood Count 5.11 M/uL (4.7-6.1); White Blood Count 21.61 K/uL (4.8-10.8)
[2021-01-23] MEDS: HYDROmorphone INJ 0.5 MG/0.5 ML SYR IV PRN ×3 (09:23→12:51)
[2021-01-23] MEDS: LACTATED RINGER'S 1,000 ML IV SCH ×3 (09:23→22:39)
[2021-01-23 09:48] LABS: Albumin Globulin Ratio 1.1 (0.9-2); BUN Creatinine Ratio 14.3 (10-20); Bilirubin,Total 0.4 mg/dl (0.2-1); Calcium 9.3 mg/dl (8.5-10.1); Creatinine Clr Calc Pharmacy 30.7 ml/min; Est GFR (African American) 41.7; Globulin 3.7 gm/dl (2.5-4.0); Magnesium 1.8 mg/dl (1.8-2.4); Potassium 4.4 mmol/L (3.5-5.1); Total Protein 7.7 gm/dl (6.4-8.2)
[2021-01-23] MEDS ORDERED: LACTATED RINGER'S 500 ML IV ONE (09:54)
[2021-01-23] MEDS ORDERED: ONDANSETRON INJ 2 MG/ML 2 ML VIAL IV STA (10:00)
--- NOTE | 2021-01-23 10:09 | CT Scan Report ---
CT OF THE ABDOMEN AND PELVIS WITHOUT CONTRAST CLINICAL HISTORY: Kidney stone. Left flank pain. COMPARISON STUDY: Renal ultrasound November 09, 2014. TECHNIQUE: Axial images of the abdomen and pelvis were obtained without IV contrast. Images were revi ewed in the axial, sagittal, and coronal planes. Automated exposure control was utilized for the katalina dy. A dose lowering technique was utilized adhering to the principles of ALARA. FINDINGS: A 2 mm distal left ureteral calculus just proximal to the ureterovesical junction results i n mild left hydroureteronephrosis. There is moderate left perinephric infiltration and fluid. No carmelita tional urinary calculi are identified. Evaluation the remainder of the abdomen and pelvis is suboptim al on this unenhanced examination. Hepatic steatosis is noted. The spleen, adrenal glands and pancrea s are unremarkable. There is no evidence for a bowel obstruction. Appendix is normal. There is coloni c diverticulosis without evidence for acute diverticulitis. No suspicious osseous lesions are noted. There is no lymphadenopathy. IMPRESSION: 1. 2 mm distal left ureteral calculus which results in mild hydroureteronephrosis with moderate left perinephric fluid and infiltration. 2. Hepatic steatosis. ACT 112: Negative or not required by law. Electronically signed by: Pa Dickinson M.D. 01/23/2021 10:08 AM
[2021-01-23] MEDS ORDERED: TAMSULOSIN HCL 0.4 MG CAP PO ONE (10:16)
[2021-01-23] MEDS ORDERED: NovoLIN-R INSULIN PER UNIT CHARGE SC STA (10:16)
[2021-01-23] MEDS ORDERED: CEFEPIME 2,000 MG/20 ML VIAL IV STA (10:20)
[2021-01-23 11:05] LABS: Appearance Urine Clear (Clear); Bacteria Urine Automated Negative (Negative); Bilirubin Urine Negative (Negative); Blood Urine 1+ (Negative); Cast Urine Automated 0 /lpf (0-5); Color Urine Yellow; Epithelial Cell Urine Auto 0-5 /lpf (0-5); Glucose Urine UA 3+ (Negative); Ketones Urine 1+ (Negative); Leukocyte Esterase Urine Negative (Negative); Nitrite Urine Negative (Negative); Protein Urine 1+ (Negative); RBC Urine Automated 0-4 /hpf (0-4); Specific Gravity Urine 1.026 (1.000-1.030); Urobilinogen Urine Negative (Negative)
--- NOTE | 2021-01-23 11:46 | Urology Consultation ---
Date of Consultation January 23, 2021 Assessment & Plan (1) Left ureteral calculus: 80 year old male admitted for left flank pain secondary to 2 mm distal left ureteral calculus, leukocytosis and elevated Lactate. - Hospital course, imaging and past medical history reviewed - Afebrile, nontoxic, lab work reviewed - creatinine and WBC elevated - Urine and blood cultures are pending - continue IV antibiotics and follow cultures - Discussed options for stone management including trial of passage vs surgical intervention including stent placement and possible stone treatment. - Findings reviewed with Dr. Bobby. Given his elevated creatinine and leukocytosis in the context of an obstructing 2 mm left distal ureteral stone, will proceed with OR for cystoscopy, Left ureteronephroscopy, possible stone treatment, and left stent placement. - Risks and benefits to be reviewed with patient by Dr. Bobby. OR notified. Preoperative CXR and EKG completed. COVID test pending. Will cover with IV Cefepime preoperatively. - Keep NPO - Strain all urine - Patient agreeable with plan. Expected clinical course reviewed, all questions answered. Supervising Physician Co-Signing Physician Notes Plan for intervention this afternoon. Cysto, left ureteral stent - attempt left URS/LL if the urine is not visibly infected. History of Present Illness Reason for Consultation: Left ureteral calculus Requesting Physician: Bnog MOSS Attending Physician: Bong MOSS History of Present Illness 80 year old male admitted for left flank pain secondary to 2 mm distal left ureteral calculus, leukocytosis. PMHx of COPD, restrictive lung disease, hyperthyroidism, GERD, BPH, nephrolithiasis, type 2 diabetes. Patient presented to [facility] ED on 01/23/21 with left flank pain that started several hours prior to arrival. He was afebrile on arrival. Lab work showed creatinine 1.76, WBC 21.61, Hgb 14.2, Lactate 2.3. Blood cultures collected and pending. UA 0-4 RBCs and 1-5 WBCs, negative for bacteria and nitrates; urine culture collected. CT A/P wo con showed 2 mm distal left ureteral calculus which results in mild hydroureteronephrosis with moderate left perinephric fluid and infiltration. He was treated with IV fluids, Cefepime, Hydromorphone, and Ondansetron in ED. He is being admitted to hospital service and our service is consulted for left ureteral stone. Patient seen and examined in ED. He is awake and resting in litter. He is feeling more comfortable at present time. He reports he was awakened with left flank pain at 0300. Pain was not improving which prompted him to go to ED. Reports associated chills, nausea and small emesis x 1 at pain onset. No dysuria or hematuria. He feels he is emptying bladder. No nausea, vomiting, fever or chills at present. He is NPO since supper yesterday. No CP or SOB. He follows with [facility] for history of BPH and stones, most recently Dr. Perry. History of spontaneous passage of stones, no prior surgical intervention for stones. No additional concerns at this time. Allergies Allergy/AdvReac Type Severity Reaction Status Date / Time Penicillins Allergy Severe SHORTNESS Verified 01/23/21 11:03 OF BREATH procaine Allergy Unknown FLUSHING Verified 01/23/21 11:03 AND SHORTNESS OF BREATH Home Medications Medication Instructions Recorded Confirmed Type Breo Ellipta 1 inh INHALATION HS 11/01/20 01/23/21 History cholecalciferol (vitamin D3) 2,000 unit PO QAM 11/01/20 01/23/21 History [Vitamin D3] finasteride 5 mg PO QAM 11/01/20 01/23/21 History methimazole 5 mg PO QAM 11/01/20 01/23/21 History pantoprazole 40 mg PO QAM 11/01/20 01/23/21 History zinc 50 mg PO QAM 11/01/20 01/23/21 History OneTouch Ultra Blue Test Strip #100 ea NS 11/07/20 12/24/20 Rx OneTouch Ultra2 Meter #1 ea NS 11/07/20 12/24/20 Rx OneTouch UltraSoft Lancets #100 ea NS 11/07/20 12/24/20 Rx ipratropium 0.5 mg-albuterol 3 mg 3 ml INHALATION Q6H PRN #180 ml 11/07/20 01/23/21 Rx (2.5 mg base)/3 mL nebulization soln nebulizers #1 ea 11/07/20 12/24/20 Rx albuterol sulfate 90 mcg/actuation 1 puff INHALATION DIRECTED PRN 11/20/20 01/23/21 Rx aerosol inhaler #18 g aspirin 81 mg PO QAM 12/03/20 01/23/21 History umeclidinium 62.5 mcg/actuation 1 inh INHALATION DAILY #30 ea 12/06/20 01/23/21 Rx blister powder for inhalation metformin 500 mg tablet,extended 500 mg PO QAM #90 tab 01/09/21 01/23/21 Rx release 24 hr Patient History Medical History Acute exacerbation of chronic obstructive pulmonary disease (COPD) BPH (benign prostatic hyperplasia) Carcinoma of right eyelid Chronic obstructive pulmonary disease inhalers daily/prn COPD (chronic obstructive pulmonary disease) Cyst in hand right hand 06/2019 GERD (gastroesophageal reflux disease) Hearing loss History of colon polyps Hyperthyroidism Hypertriglyceridemia Kidney stones Melanoma Of the right eyelid Renal insufficiency Restrictive lung disease Shortness of breath at rest Tubulovillous adenoma Type 2 diabetes mellitus Vitamin D insufficiency Surgical History H/O: knee surgery RT TENDON REPAIR History of cardiac cath HEART CATH X 2/NO STENTS History of colon resection BENIGN History of colonoscopy History of ear surgery History of eyelid surgery right d/t cancer History of rectal surgery GROWTH REMOVAL History of tonsillectomy and adenoidectomy History of tooth extraction Hx of transurethral resection of prostate Family History Brother Type 2 diabetes mellitus Aunt Type 2 diabetes mellitus Myocardial infarction Social History Smoking Status: Former smoker Tobacco Type: Cigarettes Age Started Using Tobacco: 9; Age Quit Using Tobacco: 73; packs per day: 1; Years Smoked: 64; Second Hand Exposure: No; Hx Alcohol Use: No Hx Substance Use: No Preferred Language: Tajik Communication Ability: Effective Visual Impairment: Limited Hearing Ability: Use of Hearing Aid Grappler Required: No Beliefs That Will Affect Care: None marital status: Current Living Situation: Spouse current occupational status: retired Feels Safe at Home: Yes Childhood Exposure to Second-Hand Smoke: Yes caffeine: Yes Dental Care, Regularly: No Physical Activity Frequency: Daily Physical Activity Frequency Comment: walk Seatbelt Use: always Sunscreen Use: No (stays out of the sun) Do you think of yourself as: straight/heterosexual Assistive Devices: None Review of Systems Constitutional: as per Subjective / HPI Eyes: + corrective lenses Ear, Nose, Mouth, Throat: no problem reported Respiratory: no dyspnea Cardiovascular: no chest pain Gastrointestinal: as per Subjective / HPI Genitourinary: + as per Subjective / HPI Musculoskeletal: no problem reported Integumentary: no problem reported Physical Exam Constitutional: well developed and well nourished; no acute distress and not ill appearing Neck: normal visual inspection Respiratory: normal respiratory effort and able to speak in complete sentences; no respiratory distress and no labored breathing Cardiovascular: Extremities: no pedal edema Gastrointestinal (Abdomen): Inspection/Auscultation: abdomen normal to inspection; abdomen not distended Percussion/Palpation: abdomen soft; abdomen nontender and no guarding Musculoskeletal: Head/Neck/Chest: normocephalic and head atraumatic Extremities: extremities normal to inspection Skin: no rashes, warm and dry Neurologic: moves all extremities and awake Psychiatric: Orientation: alert and oriented x 3 Genitourinary: no CVA tenderness Results & Data ([facility]) Vital Signs (Past 12 Hours) Vital Signs Temp Pulse Resp BP Pulse Ox 01/23/21 10:30 101 H 17 144/86 H 94 01/23/21 10:08 101 H 18 154/95 H 01/23/21 10:01 91 H 21 155/93 H 01/23/21 10:00 94 H 17 01/23/21 09:30 94 H 15 01/23/21 09:00 93 H 23 01/23/21 08:55 36.5 C 93 H 24 168/109 H 96 01/23/21 08:54 91 H 21 01/23/21 08:36 103 H 22 168/109 H PG Care Time/CCT Total # of Minutes Spent Total Time Spent with Patient: Total time spent is greater than 50% in coordination of care (as documented) at patient's floor/unit and/or counseling patient: Coding Level of Care Code 61554 Initial Inpt Care Lvl 3 Diagnoses Left ureteral calculus N20.1
--- NOTE | 2021-01-23 11:51 | History & Physical Report ---
Date of Service January 23, 2021 Assessment & Plan (1) Nephrolithiasis: Patient with acute nephrolithiasis with mild hydronephrosis and fat- stranding around left renal. 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 (4) Hypertriglyceridemia: Lipids in morning (5) Type 2 diabetes mellitus: Hyperglycemic in EMD to 345, was given 8 units subq prior to evaluation - Insulin sliding scale coverage - Elevated secondary to infection and steroid use (6) Vitamin D insufficiency: No acute needs- continue supplementation History of Present Illness Chief Complaint: back pain Primary Care Provider: Cristobal Galo MD 80 YOM with past medical history of: nephrolithiasis, BPH, DMII not on insulin, COPD, HLD< hyperthyroidism on methimazole, right eyelid carcinoma. Awoken this morning around 3am with left sided sharp back pain associated with sweats and chills, this then progressed to nausea and small amount of emesis. The patient new he had a likely stone as he had them before, so he got up and waited a bit before he came in, he did not get any better so he came in. The patient last ate yesterday afternoon around 1700 and had two 160z glass of water this morning. The patient was not febrile on presentation. He had a CT scan of his abdomen in the EMD that revealed 2 mm distal left ureteral calculus which results in mild hydroureteronephrosis with moderate left perinephric fluid and infiltration and elevated WBC count to 21.6 and mild lactate of 2.3. Hospitalist team was notified for admission, patient reviewed and urology was consulted. Patient was able to provide urine prior to antibiotics, received pain medication, Flomax and IVF resuscitation. Will obtain CXR for preo-op screening and ECG was completed. Allergies Allergy/AdvReac Type Severity Reaction Status Date / Time Penicillins Allergy Severe SHORTNESS Verified 01/23/21 11:03 OF BREATH procaine Allergy Unknown FLUSHING Verified 01/23/21 11:03 AND SHORTNESS OF BREATH Home Medications Medication Instructions Recorded Confirmed Type Breo Ellipta 1 inh INHALATION HS 11/01/20 01/23/21 History cholecalciferol (vitamin D3) 2,000 unit PO QAM 11/01/20 01/23/21 History [Vitamin D3] finasteride 5 mg PO QAM 11/01/20 01/23/21 History methimazole 5 mg PO QAM 11/01/20 01/23/21 History pantoprazole 40 mg PO QAM 11/01/20 01/23/21 History zinc 50 mg PO QAM 11/01/20 01/23/21 History OneTouch Ultra Blue Test Strip #100 ea NS 11/07/20 12/24/20 Rx OneTouch Ultra2 Meter #1 ea NS 11/07/20 12/24/20 Rx OneTouch UltraSoft Lancets #100 ea NS 11/07/20 12/24/20 Rx ipratropium 0.5 mg-albuterol 3 mg 3 ml INHALATION Q6H PRN #180 ml 11/07/20 01/23/21 Rx (2.5 mg base)/3 mL nebulization soln nebulizers #1 ea 11/07/20 12/24/20 Rx albuterol sulfate 90 mcg/actuation 1 puff INHALATION DIRECTED PRN 11/20/20 01/23/21 Rx aerosol inhaler #18 g aspirin 81 mg PO QAM 12/03/20 01/23/21 History umeclidinium 62.5 mcg/actuation 1 inh INHALATION DAILY #30 ea 12/06/20 01/23/21 Rx blister powder for inhalation acetaminophen 650 mg PO Q4H PRN #30 tab 01/24/21 Rx ciprofloxacin HCl [Cipro] 500 mg PO BID #8 tab 01/24/21 Rx metformin 500 mg PO BID #60 tab 01/24/21 Rx metoprolol succinate 25 mg PO DAILY #30 tab 01/24/21 Rx Past Med/Surg History Medical History Acute exacerbation of chronic obstructive pulmonary disease (COPD) BPH (benign prostatic hyperplasia) Carcinoma of right eyelid Chronic obstructive pulmonary disease inhalers daily/prn COPD (chronic obstructive pulmonary disease) Cyst in hand right hand 06/2019 GERD (gastroesophageal reflux disease) Hearing loss History of colon polyps Hyperthyroidism Hypertriglyceridemia Kidney stones Melanoma Of the right eyelid Renal insufficiency Restrictive lung disease Shortness of breath at rest Tubulovillous adenoma Type 2 diabetes mellitus Vitamin D insufficiency Surgical History H/O: knee surgery RT TENDON REPAIR History of cardiac cath HEART CATH X 2/NO STENTS History of colon resection BENIGN History of colonoscopy History of ear surgery History of eyelid surgery right d/t cancer History of rectal surgery GROWTH REMOVAL History of tonsillectomy and adenoidectomy History of tooth extraction Hx of transurethral resection of prostate Family History Brother Type 2 diabetes mellitus Aunt Type 2 diabetes mellitus Myocardial infarction Social History Smoking Status: Never smoker Tobacco Type: Cigarettes Age Started Using Tobacco: 9; Age Quit Using Tobacco: 73; packs per day: 1; Years Smoked: 64; Second Hand Exposure: No; Hx Alcohol Use: No Hx Substance Use: No Preferred Language: Spanish Communication Ability: Effective Visual Impairment: Limited Hearing Ability: Use of Hearing Aid 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 Beliefs That Will Affect Care: None marital status: Current Living Situation: Spouse current occupational status: retired Feels Safe at Home: Yes Childhood Exposure to Second-Hand Smoke: Yes caffeine: Yes Dental Care, Regularly: No Physical Activity Frequency: Daily Physical Activity Frequency Comment: walk Seatbelt Use: always Sunscreen Use: No (stays out of the sun) Do you think of yourself as: straight/heterosexual Assistive Devices: Glasses Review of Systems Review of Systems: REVIEW OF SYSTEMS: Constitutional: No fever, sweats or chills Eyes: (+) blurry vision to right eye, No diplopia, wears glasses ENT: normal hearing, no trouble swallowing Respiratory: No cough, sputum, dyspnea at rest or on exertion Cardiovascular: No chest pain, tightness or palpitations Abdomen: (+) pain, nausea, vomiting, (-) diarrhea or constipation Musculoskeletal: No joint pain, calf pain, swelling Neurologic: No weakness, numbness/tingling, or balance problems Psychiatric: No anxiety or depression Skin: No rash or itch Physical Exam Physical Exam: PHYSICAL EXAM: General: awake, alert, no apparent distress Head: Normocephalic, atraumatic ENT: PERRL, EOMI, no pharyngeal exudate, mucous membranes moist Neuro: AAO x 3, speech clear and appropriate, strength intact bilaterally 5/5, sensation intact and equal all extremities and dermatomes, no pronator drift Chest: equal rise and fall of the chest, no accessory muscle use, no heaves or thirlls, decreased throughout on auscultation, on room air, Cardiac: Regular rate and rhythm, telemetry reviewed, skin warm dry, cap refill <3 seconds, peripheral pulses +2 no JVD, no murmur, no edema GI: NABS x 4 quadrants, soft, nontender to palpation, no rebound, guarding or tenderness : Spontaneously voiding, no pain, no CVA tenderness, Extremities: Normal inspection, no peripheral edema or erythema, calfs nontender to palpation Psych: Normal mood and affect Skin: no rash or erythema Results & Data Results & Data ([facility]) Vital Signs (Past 12 Hours) Vital Signs Temp Pulse Resp BP Pulse Ox 01/23/21 10:30 101 H 17 144/86 H 94 01/23/21 10:08 101 H 18 154/95 H 01/23/21 10:01 91 H 21 155/93 H 01/23/21 10:00 94 H 17 01/23/21 09:30 94 H 15 01/23/21 09:00 93 H 23 01/23/21 08:55 36.5 C 93 H 24 168/109 H 96 01/23/21 08:54 91 H 21 01/23/21 08:36 103 H 22 168/109 H Laboratory Results Abnormal lab results 01/23/21 01/23/21 01/23/21 Range/Units 08:50 08:50 09:20 WBC 21.61 H (4.8-10.8) K/uL Hct 41.8 L (42-52) % RDW Std Deviation 51.7 H (36.4-46.3) fL RDW Coeff of Thalia 17.2 H (11.5-14.5) % MPV 10.9 H (7.4-10.4) fL Neut # (Auto) 18.89 H (1.4-6.5) K/uL Lymph # (Auto) 0.91 L (1.2-3.4) K/uL Richardson # (Auto) 1.63 H (0.11-0.59) K/uL Immature Gran # (Auto) 0.05 H (0.00-0.02) K/uL Sodium 134 L (136-145) mmol/L BUN 25 H (7-18) mg/dl Creatinine 1.76 H (0.6-1.4) mg/dl Glucose 345 H* (70-99) mg/dl Lactate 2.3 H* (0.4-2.0) mmol/L Alkaline Phosphatase 141 H (45-117) U/L Urine Protein (Negative) Urine Glucose (UA) (Negative) Urine Ketones (Negative) Urine Blood (Negative) 01/23/21 Range/Units 10:50 WBC (4.8-10.8) K/uL Hct (42-52) % RDW Std Deviation (36.4-46.3) fL RDW Coeff of Thalia (11.5-14.5) % MPV (7.4-10.4) fL Neut # (Auto) (1.4-6.5) K/uL Lymph # (Auto) (1.2-3.4) K/uL Richardson # (Auto) (0.11-0.59) K/uL Immature Gran # (Auto) (0.00-0.02) K/uL Sodium (136-145) mmol/L BUN (7-18) mg/dl Creatinine (0.6-1.4) mg/dl Glucose (70-99) mg/dl Lactate (0.4-2.0) mmol/L Alkaline Phosphatase (45-117) U/L Urine Protein 1+ H (Negative) Urine Glucose (UA) 3+ H (Negative) Urine Ketones 1+ H (Negative) Urine Blood 1+ H (Negative) Diagnostic Findings CT OF THE ABDOMEN AND PELVIS WITHOUT CONTRAST CLINICAL HISTORY: Kidney stone. Left flank pain. COMPARISON STUDY: Renal ultrasound November 09, 2014. TECHNIQUE: Axial images of the abdomen and pelvis were obtained without IV contrast. Images were reviewed in the axial, sagittal, and coronal planes. Automated exposure control was utilized for the study. A dose lowering technique was utilized adhering to the principles of ALARA. FINDINGS: A 2 mm distal left ureteral calculus just proximal to the ureterovesical junction results in mild left hydroureteronephrosis. There is moderate left perinephric infiltration and fluid. No additional urinary calculi are identified. Evaluation the remainder of the abdomen and pelvis is suboptimal on this unenhanced examination. Hepatic steatosis is noted. The spleen, adrenal glands and pancreas are unremarkable. There is no evidence for a bowel obstruction. Appendix is normal. There is colonic diverticulosis without evidence for acute diverticulitis. No suspicious osseous lesions are noted. There is no lymphadenopathy. IMPRESSION: 1. 2 mm distal left ureteral calculus which results in mild hydroureteronephrosis with moderate left perinephric fluid and infiltration. 2. Hepatic steatosis. Medications Administered Hydromorphone HCl (Hydromorphone Inj 0.5 Mg/0.5 Ml Syr) 0.5 mg IV Q1H PRN PRN Reason: Pain (6,7,8,9,10) Stop: 02/06/21 08:55 Last Admin: 01/23/21 10:05 Dose: 0.5 mg Documented by: [id number] Admin: 01/23/21 09:23 Dose: 0.5 mg Documented by: [id number] Lactated Ringer's (Lr) 1,000 mls @ 150 mls/hr IV .Q6H40M ALEX Stop: 02/22/21 08:59 Last Admin: 01/23/21 09:23 Dose: 150 mls/hr Documented by: [id number] Discontinued Medications Lactated Ringer's (Lr) 500 mls @ 999 mls/hr IV .Q31M ONE Stop: 01/23/21 10:24 Last Infusion: 01/23/21 10:27 Dose: 0 mls/hr Documented by: [id number] Admin: 01/23/21 09:56 Dose: 999 mls/hr Documented by: [id number] Cefepime HCl (Maxipime) 2,000 mg in 20 mls @ 5 mls/min IV NOW STA; Protocol Stop: 01/23/21 10:23 Last Admin: 01/23/21 11:34 Dose: 5 mls/min Documented by: [id number] Insulin Human Regular (Novolin-R Insulin Per Unit Charge) 8 units SC NOW STA Stop: 01/23/21 10:17 Last Admin: 01/23/21 11:12 Dose: 8 units Documented by: [id number] Cosigned by: [id number] Ondansetron HCl (Ondansetron Inj 2 Mg/Ml 2 Ml Vial) 4 mg IV NOW STA Stop: 01/23/21 10:01 Last Admin: 01/23/21 10:05 Dose: 4 mg Documented by: [id number] Tamsulosin HCl (Tamsulosin Hcl 0.4 Mg Cap) 0.4 mg PO NOW ONE Stop: 01/23/21 10:17 Last Admin: 01/23/21 11:14 Dose: 0.4 mg Documented by: [id number] ECG Additional Comments: Sinus rhythm with Premature atrial complexes Incomplete right bundle branch block Borderline ECG When compared with ECG of 03-DEC-2020 10:56, No significant change was found Code Status & VTE Plan Code Status CODE: FULL VTE: SCD's VTE Prophylaxis Plan VTE Prophylaxis will be ordered: Yes Supervising Physician Co-Signing Physician Notes Attending Attestation: Pt seen/examined, chart reviewed, care plan d/w ISA David. I agree with the abdi components of his documentation. 80yo male with PMH as noted above presenting with left flank pain and 2mm distal left-sided ureteral kidney stone w/ hydronephrosis as seen on CT abd/pelvis. Patient to go to OR today for stent placement and potential stone removal by [facility]. During my admission assessment he is c/o left flank pain. PMH/PSH/allergies/meds/sochx/famhx - reviewed VSS gen - uncomfortable neck - no JVD heart - RRR, s1 s2 lungs - CTA b/l abd - flank tenderness on left, otherwise BS+, soft, ND ext - pulses 2+ b/l labs and imaging reviewed A/P: obstructing 2mm left-sided ureteral kidney stone with hydronephrosis. To OR today with [facility]. NPO in meantime. IVF and IV pain meds. flomax. Other plans per Mr David. Ryley Murphy MD PG Care Time/CCT Total # of Minutes Spent Total Time Spent with Patient: Total time spent is greater than 50% in coordination of care (as documented) at patient's floor/unit and/or counseling patient: Coding Level of Care Code 34796 Initial Inpt Care Lvl 2 Diagnoses Nephrolithiasis N20.0 CKD (chronic kidney disease), stage III N18.32 Chronic kidney disease stage 3 subtype: stage 3b (GFR 30-44) COPD (chronic obstructive pulmonary disease) J44.9 COPD type: unspecified COPD Hypertriglyceridemia E78.1 Type 2 diabetes mellitus E11.22; N18.32 Chronic kidney disease stage: stage 3 (moderate) Chronic kidney disease stage 3 subtype: stage 3b (GFR 30-44) Diabetes mellitus complication detail: with chronic kidney disease Diabetes mellitus complication status: with kidney complications Diabetes mellitus residential insulin use: without residential use Vitamin D insufficiency E55.9 (1) Type 2 diabetes mellitus Chronic kidney disease stage: stage 3 (moderate) Chronic kidney disease stage 3 subtype: stage 3b (GFR 30-44) Diabetes mellitus complication detail: with chronic kidney disease Diabetes mellitus complication status: with kidney comp lications Diabetes mellitus adjunct faculty for medical 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
[2021-01-23] MEDS ORDERED: ACETAMINOPHEN 325 MG TAB PO PRN (11:57)
[2021-01-23] MEDS ORDERED: GLUCOSE 10 TABS/TUBE PO PRN (11:57)
[2021-01-23] MEDS ORDERED: ONDANSETRON INJ 2 MG/ML 2 ML VIAL IV PRN (11:57)
[2021-01-23] MEDS ORDERED: CARBOHYDRATES FOR HYPOGLYCEMIA PO PRN (11:57)
[2021-01-23] MEDS ORDERED: GLUCAGON FOR INJ 1 MG VIAL SQ PRN (11:57)
[2021-01-23] MEDS ORDERED: GLUCOSE 40% GEL 15 GM TUBE PO PRN (11:57)
[2021-01-23] MEDS ORDERED: DEXTROSE 50% 50 ML SYRINGE IV PRN (11:57)
[2021-01-23] MEDS ORDERED: UMECLIDINIUM BROMIDE 62.5MCG/BLISTER 7 PUFFS/INHALER INH SCH ×2 (11:57→22:30)
--- NOTE | 2021-01-23 12:12 | XRay Report ---
XR chest 1V portable CLINICAL HISTORY: Preoperative evaluation. COMPARISON STUDY: Chest CT November 01, 2020. Chest radiograph December 03, 2020. FINDINGS: Lung volumes are normal. Lungs are clear. There is no pneumothorax or pleural effusion. Mod erate cardiomegaly is unchanged. Mediastinal contours are normal. There is no evidence for pulmonary edema. IMPRESSION: 1. No acute cardiopulmonary findings. 2. Cardiomegaly. ACT 112: Negative or not required by law. Electronically signed by: Pa Dickinson M.D. 01/23/2021 12:11 PM
[2021-01-23 12:39] LABS: Influenza A virus by PCR Negative (Neg); Influenza B virus by PCR Negative (Neg); RSV by PCR Negative (Neg); SARS CoV2 RNA(COVID-19) InHosp NEGATIVE (Negative)
[2021-01-23 12:45] LABS: C Reactive Protein 1.69 mg/dl (0-0.29); Thyroid Stimulating Hormone 1.88 uIu/ml (0.300-4.500)
[2021-01-23] MEDS ORDERED: ALBUT/IPRATROP 3MG/0.5MG NEB 3 ML VIAL NEB STA (13:42)
[2021-01-23] MEDS ORDERED: ALBUTEROL HFA 8 GM INHALER INH PRN (13:44)
--- NOTE | 2021-01-23 13:55 | Anesthesiology Consultation ---
Date of Service January 23, 2021 Patient currently receiving treatment for recent COPD exacerbation. He states this is the third one this year. He is short of breath with minimal exertion. Assessment & Plan (1) Encounter for pre-operative examination: History Surgery Operation Date: 01/23/21 14:20 Proposed Procedures p Cystoscopy, Left Ureteroscopy, Possibler Laser Lithotripsy, Stent Placement - Daniel Bobby MD Height/Weight Height: 5 ft 6 in Weight: 65 kg Allergies Allergy/AdvReac Type Severity Reaction Status Date / Time Penicillins Allergy Severe SHORTNESS Verified 01/23/21 11:03 OF BREATH procaine Allergy Unknown FLUSHING Verified 01/23/21 11:03 AND SHORTNESS OF BREATH Medications Home Medications Medication Instructions Recorded Confirmed Last Taken Breo Ellipta 1 inh INHALATION HS 11/01/20 01/23/21 01/22/21 cholecalciferol (vitamin D3) 2,000 unit PO QAM 11/01/20 01/23/21 01/22/21 [Vitamin D3] finasteride 5 mg PO QAM 11/01/20 01/23/21 01/22/21 methimazole 5 mg PO QAM 11/01/20 01/23/21 01/22/21 pantoprazole 40 mg PO QAM 11/01/20 01/23/21 01/22/21 zinc 50 mg PO QAM 11/01/20 01/23/21 01/22/21 OneTouch Ultra Blue Test Strip #100 ea NS 11/07/20 12/24/20 Unknown OneTouch Ultra2 Meter #1 ea NS 11/07/20 12/24/20 Unknown OneTouch UltraSoft Lancets #100 ea NS 11/07/20 12/24/20 Unknown ipratropium 0.5 mg-albuterol 3 mg 3 ml INHALATION Q6H PRN #180 ml 11/07/20 01/23/21 12/03/20 06:00 (2.5 mg base)/3 mL nebulization soln nebulizers #1 ea 11/07/20 12/24/20 Unknown albuterol sulfate 90 mcg/actuation 1 puff INHALATION DIRECTED PRN 11/20/20 01/23/21 01/22/21 aerosol inhaler #18 g aspirin 81 mg PO QAM 12/03/20 01/23/2121 umeclidinium 62.5 mcg/actuation 1 inh INHALATION DAILY #30 ea 12/06/20 01/23/21 01/22/21 blister powder for inhalation metformin 500 mg tablet,extended 500 mg PO QAM #90 tab 01/09/21 01/23/21 01/22/21 release 24 hr Active Medications Generic Name Dose Route Start Last Admin Trade Name Freq PRN Reason Stop Dose Admin Hydromorphone HCl 0.5 mg 01/23/21 08:56 01/23/21 12:51 Hydromorphone Inj 0.5 Mg/0.5 Ml Syr IV 02/06/21 08:55 0.5 mg Q1H PRN Administration Pain (6,7,8,9,10) Lactated Ringer's 1,000 mls @ 150 mls/hr 01/23/21 09:00 01/23/21 09:23 Lr IV 02/22/21 08:59 150 mls/hr .Q6H40M ALEX Administration NPO Date Last Intake of Fluids: 01/23/21 Time Last Intake of Fluids: 07:00 Last Intake of Fluids Comment: "a little water" Date Last Intake of Solids: 01/22/21 Time Last Intake of Solids: 18:00 Past Medical History Medical History Acute exacerbation of chronic obstructive pulmonary disease (COPD) BPH (benign prostatic hyperplasia) Carcinoma of right eyelid Chronic obstructive pulmonary disease inhalers daily/prn COPD (chronic obstructive pulmonary disease) Cyst in hand right hand 06/2019 GERD (gastroesophageal reflux disease) Hearing loss History of colon polyps Hyperthyroidism Hypertriglyceridemia Kidney stones Melanoma Of the right eyelid Renal insufficiency Restrictive lung disease Shortness of breath at rest Tubulovillous adenoma Type 2 diabetes mellitus Vitamin D insufficiency Past Family History Family History Brother Type 2 diabetes mellitus Aunt Type 2 diabetes mellitus Myocardial infarction Past Surgical History Surgical History H/O: knee surgery RT TENDON REPAIR History of cardiac cath HEART CATH X 2/NO STENTS History of colon resection BENIGN History of colonoscopy History of ear surgery History of eyelid surgery right d/t cancer History of rectal surgery GROWTH REMOVAL History of tonsillectomy and adenoidectomy History of tooth extraction Hx of transurethral resection of prostate Social History Smoking Status: Former smoker tobacco type: cigarettes Hx Alcohol Use: No Hx Substance Use: No substance use type: does not use Physical Exam Vital Signs Last Vital Signs Temp 37 C 01/23/21 13:13 Pulse 102 H 01/23/21 13:13 Resp 22 01/23/21 13:13 BP 149/92 H 01/23/21 13:13 Pulse Ox 95 01/23/21 13:13 Testing Laboratory Results 01/23/21 08:50 01/23/21 08:50 Urine Color Yellow 01/23/21 10:50 Urine Appearance Clear (Clear) 01/23/21 10:50 Urine pH 5.0 (4.5-7.5) 01/23/21 10:50 Ur Specific [place] 1.026 (1.000-1.030) 01/23/21 10:50 Urine Protein 1+ (Negative) H 01/23/21 10:50 Urine Glucose (UA) 3+ (Negative) H 01/23/21 10:50 Urine Ketones 1+ (Negative) H 01/23/21 10:50 Urine Nitrite Negative (Negative) 01/23/21 10:50 Ur Leukocyte Esterase Negative (Negative) 01/23/21 10:50 Urine WBC (Auto) 1-5 /hpf (0-5) 01/23/21 10:50 Urine RBC (Auto) 0-4 /hpf (0-4) 01/23/21 10:50 U Hyaline Cast (Auto) 0 /lpf (0-5) 01/23/21 10:50 U Epithel Cells (Auto) 0-5 /lpf (0-5) 01/23/21 10:50 Urine Bacteria (Auto) Negative (Negative) 01/23/21 10:50 01/23/21 12:40 POC Glucose 311 H* Electrocardiogram Date: 01/23/21 Sinus rhythm with Premature atrial complexes Incomplete right bundle branch block Borderline ECG When compared with ECG of 03-DEC-2020 10:56, No significant change was found Chest X-Ray Date: 01/23/21 IMPRESSION: 1. No acute cardiopulmonary findings. 2. Cardiomegaly.
[2021-01-23] MEDS ORDERED: fentaNYL citrate 100 MCG/2 ML VIAL ONE (14:23)
--- NOTE | 2021-01-23 15:09 | Operative Report ---
PG Post Operative Report Pre & Post Diagnosis Operation Date: 01/23/21 14:20 Pre-Op Diagnosis: Left ureteral calculus Post-Op Diagnosis: Left ureteral calculus I identified the patient and participated in the time-out.: Yes Procedure Operation Date: 01/23/21 14:20 Actual Procedures p Cystoscopy, Left Ureteroscopy, Stone Basket Extraction, Stent Placement(Left) - Daniel Bobby MD Surgeon Darin Bobby MD Glass Silverer none Estimated Blood Loss 0 Findings Consistent with Post-Op Diagnosis Specimens Stone for chemical analysis Description of Procedure The patient was identified in the preoperative holding area, appropriate informed consents were reviewed and completed and the patient was transferred to the operative suite. Upon arrival, appropriate antibiotics and anesthesia were administered and the patient was placed in dorsal lithotomy position and prepped and draped in sterile fashion. To begin the case I passed a 20 Ethiopian cystoscope with 30 degree lens. Inspection revealed a healthy-appearing urethra and he is notably status post TURP with an open prostatic fossa. Inspection of the bladder revealed healthy- appearing mucosa with ureteral orifices in orthotopic position. I turned my attention to the left UO and cannulated with a sensor wire and a 10 Ethiopian double-lumen catheter. Advance this 10 Ethiopian double-lumen catheter approximately 3 cm and felt some mild resistance which was consistent with the location of the stone seen on preoperative imaging. I then withdrew the 10 Fren ch double-lumen catheter and reentered the bladder with a semirigid ureteroscope. After getting this into the distal left ureter I encountered a tight/edematous band but was not truly strictured. I was able to navigate the scope through it and immediately proximal to this band was a small round stone. I was able to basket the stone and withdraw it. I then advanced the scope back into the ureter and confirmed that there were no other large retained stones. He did have inflammation of the remainder of the ureter but no purulence to his urine. I concluded the case by placing a 6 Ethiopian by 24 cm double-J ureteral stent. I emptied the bladder and the case was concluded. He was taken to the recovery room in stable condition. There were no complications. I attest to the content of the Intraoperative Record and any orders documented therein. Any exceptions are noted below.
[2021-01-23] MEDS ORDERED: fentaNYL citrate 100 MCG/2 ML VIAL IV PRN (15:26)
[2021-01-23] MEDS ORDERED: ATROPINE SULFATE 0.1 MG/ML 10ML SYR IV PRN (15:26)
[2021-01-23] MEDS ORDERED: ePHEDrine sulfate 50 MG/ML AMP IV PRN (15:26)
--- NOTE | 2021-01-23 15:27 | Fluoroscopy Report ---
FL KUB CLINICAL HISTORY: LEFT STENT COMPARISON STUDY: CT of the abdomen and pelvis January 23, 2021 at 9:46 AM. FLUOROSCOPY TIME: 5 seconds. FLUOROSCOPIC IMAGES: 3 FINDINGS: Fluoroscopy was provided during cystoscopy, left stone extraction and ureteral stent placem ent. Proximal aspect of the left ureteral stent projects over the renal pelvis. IMPRESSION: Fluoroscopy provided during cystoscopy, left stone extraction and left ureteral stent in sertion. ACT 112: Negative or not required by law. Electronically signed by: Pa Dickinson M.D. 01/23/2021 3:26 PM
--- NOTE | 2021-01-23 15:54 | Electrocardiogram Report ---
Test Reason : Blood Pressure : / mmHG Vent. Rate : 095 BPM Atrial Rate : 095 BPM P-R Int : 176 ms QRS Dur : 106 ms QT Int : 364 ms P-R-T Axes : 062 -19 021 degrees QTc Int : 457 ms Sinus rhythm with Premature atrial complexes Incomplete right bundle branch block Borderline ECG When compared with ECG of 03-DEC-2020 10:56, No significant change was found Confirmed by Junior Randall ([id number]) on 01/23/2021 3:54:29 PM Referred By: REFERRED SELF Confirmed By:Junior Randall
--- NOTE | 2021-01-23 17:33 | Anesthesiology Progress Note ---
Date of Service January 23, 2021 Anesthesia Post Procedure Vital Signs Vital Signs: Temp Pulse Pulse Pulse Resp BP BP 01/23/21 17:25 80 18 121/73 01/23/21 17:15 36.5 C 83 18 110/72 01/23/21 17:05 78 14 128/72 01/23/21 16:55 36.2 C L 86 18 127/71 01/23/21 16:45 80 14 115/73 01/23/21 16:35 82 16 107/77 01/23/21 16:25 81 12 119/69 01/23/21 16:15 81 16 112/69 01/23/21 16:05 85 18 114/63 01/23/21 15:55 86 18 105/70 01/23/21 15:45 87 16 116/66 01/23/21 15:35 93 H 18 111/66 01/23/21 15:25 95 H 18 100/57 L 01/23/21 15:15 36.7 C 94 H 20 93/63 L 01/23/21 13:55 104 H 18 01/23/21 13:13 37 C 102 H 22 149/92 H 01/23/21 12:30 93 H 15 162/100 H 01/23/21 12:00 88 18 155/89 H 01/23/21 11:30 89 25 H 145/87 H 01/23/21 11:00 93 H 18 154/92 H 01/23/21 10:30 101 H 17 144/86 H 01/23/21 10:08 101 H 18 154/95 H 01/23/21 10:01 91 H 21 155/93 H 01/23/21 10:00 94 H 17 01/23/21 09:30 94 H 15 01/23/21 09:00 93 H 23 01/23/21 08:55 36.5 C 93 H 24 168/109 H 01/23/21 08:54 91 H 21 01/23/21 08:36 103 H 22 168/109 H Pulse Ox 01/23/21 17:25 98 01/23/21 17:15 98 01/23/21 17:05 98 01/23/21 16:55 99 01/23/21 16:45 96 01/23/21 16:35 96 01/23/21 16:25 95 01/23/21 16:15 97 01/23/21 16:05 96 01/23/21 15:55 97 01/23/21 15:45 97 01/23/21 15:35 95 01/23/21 15:25 96 01/23/21 15:15 95 01/23/21 13:55 94 01/23/21 13:13 95 01/23/21 12:30 94 01/23/21 12:00 96 01/23/21 11:30 96 01/23/21 11:00 91 01/23/21 10:30 94 01/23/21 10:08 01/23/21 10:01 01/23/21 10:00 01/23/21 09:30 01/23/21 09:00 01/23/21 08:55 96 01/23/21 08:54 01/23/21 08:36 Pain Intensity Left Flank: Pain Intensity: 7 Transfer of Care Handoff Completed per policy Notes Mental Status: alert / awake / arousable and participated in evaluation Patient Amnestic to Procedure: Yes Nausea / Vomiting: adequately controlled Pain: adequately controlled Airway Patency, RR, SpO2: stable & adequate BP & HR: stable & adequate Hydration State: stable & adequate Anesthetic Complications: no major complications apparent and Pt Satisfied with anesthetic care
[2021-01-23] MEDS ORDERED: FLUTICASONE/VILANTEROL 100/25MCG 14 PUFFS/INHALER INH SCH (21:39)
[2021-01-23] MEDS ORDERED: ALBUT/IPRATROP 3MG/0.5MG NEB 3 ML VIAL INH PRN (21:39)
[2021-01-23] MEDS: INSULIN ASPART 100 UNITS/ML 3 ML PEN SC SCH ×2 (21:41→22:32)
[2021-01-24] MEDS: INSULIN ASPART 100 UNITS/ML 3 ML PEN SC SCH ×5 (00:02→17:48)
[2021-01-24] MEDS: LACTATED RINGER'S 1,000 ML IV SCH (06:11)
[2021-01-24 06:31] LABS: Estimated Average Glucose 226 mg/dl; Hemoglobin A1C 9.5 % (4.5-5.6)
--- NOTE | 2021-01-24 08:58 | Anesthesiology Progress Note ---
Date of Service January 24, 2021 Anesthesia Post Procedure Vital Signs Vital Signs: Temp Pulse Pulse Pulse Resp BP BP 01/24/21 08:07 37.1 C 103 H 18 135/74 01/24/21 04:09 36.8 C 100 H 20 129/89 01/23/21 23:10 36.7 C 68 18 01/23/21 21:20 36.8 C 120 H 20 01/23/21 21:00 92 H 18 01/23/21 20:45 105 H 18 01/23/21 20:30 109 H 16 01/23/21 20:15 107 H 20 01/23/21 20:00 96 H 20 01/23/21 19:45 104 H 20 01/23/21 19:30 106 H 20 01/23/21 19:15 86 18 01/23/21 19:00 86 18 01/23/21 18:45 95 H 15 01/23/21 18:30 93 H 17 01/23/21 18:15 91 H 17 01/23/21 18:00 86 16 01/23/21 17:45 79 18 01/23/21 17:35 36.6 C 80 18 01/23/21 17:25 80 18 01/23/21 17:15 36.5 C 83 18 01/23/21 17:05 78 14 01/23/21 16:55 36.2 C L 86 18 01/23/21 16:45 80 14 01/23/21 16:35 82 16 01/23/21 16:25 81 12 01/23/21 16:15 81 16 01/23/21 16:05 85 18 01/23/21 15:55 86 18 01/23/21 15:45 87 16 01/23/21 15:35 93 H 18 01/23/21 15:25 95 H 18 01/23/21 15:15 36.7 C 94 H 20 01/23/21 13:55 104 H 18 01/23/21 13:13 37 C 102 H 22 01/23/21 12:30 93 H 15 162/100 H 01/23/21 12:00 88 18 155/89 H 01/23/21 11:30 89 25 H 145/87 H 01/23/21 11:00 93 H 18 154/92 H 01/23/21 10:30 101 H 17 144/86 H 01/23/21 10:08 101 H 18 154/95 H 01/23/21 10:01 91 H 21 155/93 H 01/23/21 10:00 94 H 17 01/23/21 09:30 94 H 15 01/23/21 09:00 93 H 23 BP Pulse Ox 01/24/21 08:07 92 01/24/21 04:09 96 01/23/21 23:10 132/69 93 01/23/21 21:20 134/85 96 01/23/21 21:00 125/61 94 01/23/21 20:45 124/81 95 01/23/21 20:30 108/78 95 01/23/21 20:15 106/63 95 01/23/21 20:00 117/66 95 01/23/21 19:45 128/63 94 01/23/21 19:30 139/66 95 01/23/21 19:15 131/94 97 01/23/21 19:00 128/78 97 01/23/21 18:45 144/90 H 97 01/23/21 18:30 135/70 96 01/23/21 18:15 137/80 96 01/23/21 18:00 117/93 96 01/23/21 17:45 114/77 95 01/23/21 17:35 127/75 98 01/23/21 17:25 121/73 98 01/23/21 17:15 110/72 98 01/23/21 17:05 128/72 98 01/23/21 16:55 127/71 99 01/23/21 16:45 115/73 96 01/23/21 16:35 107/77 96 01/23/21 16:25 119/69 95 01/23/21 16:15 112/69 97 01/23/21 16:05 114/63 96 01/23/21 15:55 105/70 97 01/23/21 15:45 116/66 97 01/23/21 15:35 111/66 95 01/23/21 15:25 100/57 L 96 01/23/21 15:15 93/63 L 95 01/23/21 13:55 94 01/23/21 13:13 149/92 H 95 01/23/21 12:30 94 01/23/21 12:00 96 01/23/21 11:30 96 01/23/21 11:00 91 01/23/21 10:30 94 01/23/21 10:08 01/23/21 10:01 01/23/21 10:00 01/23/21 09:30 01/23/21 09:00 Pain Intensity Left Flank: Pain Intensity: 0 Notes Mental Status: alert / awake / arousable and participated in evaluation Patient Amnestic to Procedure: Yes Nausea / Vomiting: adequately controlled Pain: adequately controlled Airway Patency, RR, SpO2: stable & adequate BP & HR: stable & adequate Hydration State: stable & adequate Neuraxial Anesthesia: was administered and sensory block resolved Anesthetic Complications: no major complications apparent
[2021-01-24] MEDS ORDERED: CEFEPIME 1,000 MG in SYRINGE 0 ML IV SCH (09:00)
[2021-01-24] MEDS ORDERED: methIMAzole 5 MG TABLET PO SCH (09:00)
[2021-01-24] MEDS ORDERED: PANTOprazole 40 MG TAB PO SCH (09:00)
[2021-01-24] MEDS ORDERED: FINASTERIDE 5 MG TAB PO SCH (09:00)
[2021-01-24 09:51] LABS: Basophils # (auto) 0.04 K/uL (0-0.2); Basophils % (auto) 0.3 %; Eosinophils % (auto) 4.2 %; Hematocrit (blood only) 36.8 % (42-52); Immature Granulocytes # (auto) 0.04 K/uL (0.00-0.02); Immature Granulocytes % (auto) 0.3 %; Lymphocytes # (auto) 1.77 K/uL (1.2-3.4); Lymphocytes % (auto) 14.8 %; Mean Corpuscular Hemoglobin 26.9 pg (25-34); Mean Corpuscular Hgb Conc 32.6 g/dL (32-36); Mean Corpuscular Volume 82.5 fL (80-100); Mean Platelet Volume 10.5 fL (7.4-10.4); Monocytes # (auto) 0.99 K/uL (0.11-0.59); Monocytes % (auto) 8.3 %; Neutrophils # (auto) 8.63 K/uL (1.4-6.5); Neutrophils % (auto) 72.1 %; Platelet Count 236 K/uL (130-400); RDW Coefficient of Variation 17.2 % (11.5-14.5); RDW Standard Deviation 52.4 fL (36.4-46.3); Red Blood Count 4.46 M/uL (4.7-6.1); White Blood Count 11.97 K/uL (4.8-10.8)
[2021-01-24 10:02] LABS: BUN Creatinine Ratio 12.9 (10-20); Calcium 8.6 mg/dl (8.5-10.1); Creatinine Clr Calc Pharmacy 40.3 ml/min; Potassium 3.8 mmol/L (3.5-5.1)
[2021-01-24 10:07] LABS: Albumin Globulin Ratio 1.1 (0.9-2); Bilirubin,Total 0.6 mg/dl (0.2-1); Globulin 2.8 gm/dl (2.5-4.0); Total Protein 5.9 gm/dl (6.4-8.2)
--- NOTE | 2021-01-24 10:43 | Urology Progress Note ---
Date of Service January 24, 2021 Assessment & Plan (1) Left ureteral calculus: 80 year old male admitted for left flank pain secondary to 2 mm distal left ureteral calculus, leukocytosis and elevated Lactate. - Postop day #1 s/p Cystoscopy, Left Ureteroscopy, Stone Basket Extraction, Stent Placement with Dr. Bobby - Patient doing well post procedure with improvement in symptoms - Afebrile, VSS. - Labs reviewed, Wbc improving and creatinine normal today - Blood cultures pending - Continue supportive care and antibiotics per primary team - Will arrange outpatient follow-up with urology for stent removal - Recommend home with prn pain control - Thank you for allowing us to participate in the acute care of Mr. Mcmahan. Please reconsult us with additional questions, concerns or changes in patient status. Admission and Anticipated Discharge Date Admission Date: January 23, 2021 Subjective Patient examined at bedside this AM. Awake, sitting up in bed on arrival. He denies any back, flank, or suprapubic pain. Some mild dysuria, no hematuria. Voiding without difficulty and feels he is emptying his bladder. No fever or chills. Tolerating diet, no nausea or vomiting. Ambulating without dizziness. Chart review: Afebrile, Wbc 11.97 (previously 21.61), Hgb 12.0 (previously 14.2), Cr 1.34 (previously 1.76). Blood cultures pending. On IV Cefepime. Review of Systems Constitutional: as per Subjective / HPI Gastrointestinal: as per Subjective / HPI Genitourinary: + as per Subjective / HPI Physical Exam Constitutional: well developed and well nourished; no acute distress and not ill appearing Respiratory: no respiratory distress and no labored breathing Cardiovascular: Extremities: no calf tenderness Gastrointestinal (Abdomen): Percussion/Palpation: abdomen soft; abdomen nontender and no guarding Musculoskeletal: Head/Neck/Chest: normocephalic and head atraumatic Skin: no rashes, warm and dry Neurologic: moves all extremities and awake Psychiatric: A+Ox3, euthymic affect Genitourinary: no CVA tenderness Results & Data ([facility]) Vital Signs (Past 12 Hours) Vital Signs Temp Pulse Pulse Resp BP BP Pulse Ox 01/24/21 08:07 37.1 C 103 H 18 135/74 92 01/24/21 08:00 88 01/24/21 04:09 36.8 C 100 H 20 129/89 96 01/23/21 23:10 36.7 C 68 18 132/69 93 PG Care Time/CCT Total # of Minutes Spent Total Time Spent with Patient: Total time spent is greater than 50% in coordination of care (as documented) at patient's floor/unit and/or counseling patient: Coding Level of Care Code 98850 Subseq Hosp Care Lvl 2 Diagnoses Left ureteral calculus N20.1
--- NOTE | 2021-01-24 13:48 | Cardiology Consultation ---
Date of Consultation January 24, 2021 Assessment & Plan (1) PAT (paroxysmal atrial tachycardia): It sounds as though he has a long history of a rapid heart rate which is probably the PAT that we are seeing here, although I do not have specific records of that. He does not seem to be aware of it, the heart rate is little fast but not excessive and I do not think treatment is necessary. If he required treatment for high blood pressure (which is not clear although sometimes his blood pressure is high) then using a beta-anna or a calcium anna might be a reasonable option and it might help somewhat with the heart rate. The atrial tachycardias can sometimes be difficult to slow down. I think therefore the treatment of the arrhythmia specifically is optional. (2) HBP (high blood pressure): At times he has high blood pressure although most of the time his blood pressure is well controlled. I do not think he is currently on a antihypertensive. If 1 were to be used I would suggest trying metoprolol, or alternatively diltiazem, since these may also help with his atrial arrhythmia. History of Present Illness Reason for Consultation: Atrial arrhythmia Attending Physician: Estrellita Michel MD History of Present Illness This is a 80-year-old male who was seen in our office [place] [address] Orta. At that time he was having dyspnea on exertion and a stress echo suggested ischemia and he had a catheterization performed on February 27, 2015 which showed normal coronary arteries. His electrocardiogram at the time showed sinus rhythm with a right bundle branch block. He tells me that he has been having a rapid heart rate for many years, although it sounds like he was not specifically treated for it. He presents January 23, 2021 with symptoms compatible with nephrolithiasis, he had a left ureteral calculus identified and had a basket extraction with stent pl acement on January 23, 2021. He has been observed to have frequent atrial premature beats and runs of atrial tachycardia. He is not aware of this, he has no palpitations but never has and it is not clear that it affects his activity level. Allergies Allergy/AdvReac Type Severity Reaction Status Date / Time Penicillins Allergy Severe SHORTNESS Verified 01/23/21 11:03 OF BREATH procaine Allergy Unknown FLUSHING Verified 01/23/21 11:03 AND SHORTNESS OF BREATH Home Medications Medication Instructions Recorded Confirmed Type Breo Ellipta 1 inh INHALATION HS 11/01/20 01/23/21 History cholecalciferol (vitamin D3) 2,000 unit PO QAM 11/01/20 01/23/21 History [Vitamin D3] finasteride 5 mg PO QAM 11/01/20 01/23/21 History methimazole 5 mg PO QAM 11/01/20 01/23/21 History pantoprazole 40 mg PO QAM 11/01/20 01/23/21 History zinc 50 mg PO QAM 11/01/20 01/23/21 History OneTouch Ultra Blue Test Strip #100 ea NS 11/07/20 12/24/20 Rx ActiViewsTouch Ultra2 Meter #1 ea NS 11/07/20 12/24/20 Rx ActiViewsTouch UltraSoft Lancets #100 ea NS 11/07/20 12/24/20 Rx ipratropium 0.5 mg-albuterol 3 mg 3 ml INHALATION Q6H PRN #180 ml 11/07/20 01/23/21 Rx (2.5 mg base)/3 mL nebulization soln nebulizers #1 ea 11/07/20 12/24/20 Rx albuterol sulfate 90 mcg/actuation 1 puff INHALATION DIRECTED PRN 11/20/20 01/23/21 Rx aerosol inhaler #18 g aspirin 81 mg PO QAM 12/03/20 01/23/21 History umeclidinium 62.5 mcg/actuation 1 inh INHALATION DAILY #30 ea 12/06/20 01/23/21 Rx blister powder for inhalation metformin 500 mg tablet,extended 500 mg PO QAM #90 tab 01/09/21 01/23/21 Rx release 24 hr Patient History Medical History Acute exacerbation of chronic obstructive pulmonary disease (COPD) BPH (benign prostatic hyperplasia) Carcinoma of right eyelid Chronic obstructive pulmonary disease inhalers daily/prn COPD (chronic obstructive pulmonary disease) Cyst in hand right hand 06/2019 GERD (gastroesophageal reflux disease) Hearing loss History of colon polyps Hyperthyroidism Hypertriglyceridemia Kidney stones Melanoma Of the right eyelid Renal insufficiency Restrictive lung disease Shortness of breath at rest Tubulovillous adenoma Type 2 diabetes mellitus Vitamin D insufficiency Surgical History H/O: knee surgery RT TENDON REPAIR History of cardiac cath HEART CATH X 2/NO STENTS History of colon resection BENIGN History of colonoscopy History of ear surgery History of eyelid surgery right d/t cancer History of rectal surgery GROWTH REMOVAL History of tonsillectomy and adenoidectomy History of tooth extraction Hx of transurethral resection of prostate Family History Brother Type 2 diabetes mellitus Aunt Type 2 diabetes mellitus Myocardial infarction Social History Smoking Status: Never smoker Tobacco Type: Cigarettes Age Started Using Tobacco: 9; Age Quit Using Tobacco: 73; packs per day: 1; Years Smoked: 64; Second Hand Exposure: No; Hx Alcohol Use: No Hx Substance Use: No Preferred Language: Faroese Communication Ability: Effective Visual Impairment: Limited Hearing Ability: Use of Hearing Aid [employer] Required: No Beliefs That Will Affect Care: None marital status: Current Living Situation: Spouse current occupational status: retired Feels Safe at Home: Yes Childhood Exposure to Second-Hand Smoke: Yes caffeine: Yes Dental Care, Regularly: No Physical Activity Frequency: Daily Physical Activity Frequency Comment: walk Seatbelt Use: always Sunscreen Use: No (stays out of the sun) Do you think of yourself as: straight/heterosexual Assistive Devices: Glasses Review of Systems Review of Systems: All systems reviewed & are unremarkable except as noted in HPI & below Physical Exam Physical Exam: Constitutional: Alert, cooperative and in no distress. HEENT: Unremarkable Neck: No jugular venous distention, carotid pulses are irregular but otherwise normal and equal bilaterally without bruits. Pulmonary: Clear to auscultation bilaterally. Cardiac: Irregular rhythm with no murmur, gallop or rub. Abdomen: Soft, nontender with normal bowel sounds. Extremities: No edema. Distal pulses intact. Neurologic: No focal findings. Gait is steady. Skin: No rash, ecchymoses or petechiae. Results & Data ([facility]) Vital Signs (Past 12 Hours) Vital Signs Temp Pulse Pulse Resp BP Pulse Ox 01/24/21 11:56 36.9 C 103 H 18 147/90 H 93 01/24/21 08:07 37.1 C 103 H 18 135/74 92 01/24/21 08:00 88 04/09/21 04:09 36.8 C 100 H 20 129/89 96 Laboratory Results Cardiac Enzymes 01/24/21 Range/Units 05:38 AST 17 (15-37) U/L CBC 01/24/21 Range/Units 05:38 WBC 11.97 H (4.8-10.8) K/uL RBC 4.46 L (4.7-6.1) M/uL Hgb 12.0 L (14.0-18.0) g/dL Hct 36.8 L (42-52) % Plt Count 236 (130-400) K/uL Neut # (Auto) 8.63 H (1.4-6.5) K/uL Lymph # (Auto) 1.77 (1.2-3.4) K/uL Reynolds # (Auto) 0.99 H (0.11-0.59) K/uL Eos # (Auto) 0.50 (0-0.5) K/uL Baso # (Auto) 0.04 (0-0.2) K/uL Comprehensive Metabolic Panel 01/24/21 Range/Units 05:38 Sodium 137 (136-145) mmol/L Potassium 3.8 (3.5-5.1) mmol/L Chloride 104 (98-107) mmol/L Carbon Dioxide 26 (21-32) mmol/L BUN 17 (7-18) mg/dl Creatinine 1.34 D (0.6-1.4) mg/dl Glucose 131 H (70-99) mg/dl Calcium 8.6 (8.5-10.1) mg/dl AST 17 (15-37) U/L ALT 29 (12-78) U/L Alkaline Phosphatase 79 (45-117) U/L Total Protein 5.9 L D (6.4-8.2) gm/dl Albumin 3.0 L (3.4-5.0) gm/dl Intake and Output 01/24/21 01/24/21 01/24/21 06:59 14:59 22:59 Intake Total 1000 / 3000 1352 / 1352 Output Total 900 / 1250 1450 / 1450 Balance 100 / 1750 -98 / -98 Intake: IV 1000 / 2500 902 / 902 Lr 1,000 ml @ 150 mls/hr IV . 1000 / 2000 902 / 902 Q6H40M [facility] Rx#:[id number] Oral 450 / 450 Output: Urine 900 / 1250 1450 / 1450 Other: Weight 65 kg Patient Weight 01/25/21 06:59 Weight 65 kg Diagnostic Findings Telemetry: Sinus rhythm with very frequent premature atrial beats, very frequent runs of atrial tachycardia. I doubt this represents atrial fibrillation. PG Care Time/CCT Total # of Minutes Spent Total Time Spent with Patient: Total time spent is greater than 50% in coordination of care (as documented) at patient's floor/unit and/or counseling patient: Coding Level of Care Code 94527 Initial Inpt Care Lvl 3 Diagnoses PAT (paroxysmal atrial tachycardia) I47.1 HBP (high blood pressure) I10 Hypertension type: unspecified (1) HBP (high blood pressure) Hypertension type: unspecified Qualified Code(s): I10 - Essential (primary) hypertension
--- NOTE | 2021-01-24 14:55 | Electrocardiogram Report ---
Test Reason : Blood Pressure : / mmHG Vent. Rate : 118 BPM Atrial Rate : 118 BPM P-R Int : 192 ms QRS Dur : 110 ms QT Int : 342 ms P-R-T Axes : 099 -09 038 degrees QTc Int : 479 ms Sinus tachycardia Premature atrial complexes and atrial runs Incomplete right bundle branch block Nonspecific T wave abnormality Abnormal ECG When compared with ECG of 23-JAN-2021 09:37, No significant change Confirmed by Junior Randall ([id number]) on 01/24/2021 2:55:16 PM Referred By: REFERRED SELF Confirmed By:Junior Randall
--- NOTE | 2021-01-24 16:49 | XCELERA ---
[id number] \\[id number]
--- NOTE | 2021-01-24 17:13 | Discharge Summary ---
Date of Service January 24, 2021 Admission HPI Per Admitting Provider 80 YOM with past medical history of: nephrolithiasis, BPH, DMII not on insulin, COPD, HLD< hyperthyroidism on methimazole, right eyelid carcinoma. Awoken this morning around 3am with left sided sharp back pain associated with sweats and chills, this then progressed to nausea and small amount of emesis. The patient new he had a likely stone as he had them before, so he got up and waited a bit before he came in, he did not get any better so he came in. The patient last ate yesterday afternoon around 1700 and had two 160z glass of water this morning. The patient was not febrile on presentation. He had a CT scan of his abdomen in the EMD that revealed 2 mm distal left ureteral calculus which results in mild hydroureteronephrosis with moderate left perinephric fluid and infiltration and elevated WBC count to 21.6 and mild lactate of 2.3. Hospitalist team was notified for admission, patient reviewed and urology was consulted. Patient was able to provide urine prior to antibiotics, received pain medication, Flomax and IVF resuscitation. Will obtain CXR for preo-op screening and ECG was completed. Principal Diagnosis Ureterolithiasis, PSVT Discharge Exam Constitutional WD/WN, vitals as above Eyes + anicteric sclerae ENMT external ear and nose normal, oropharynx normal Neck trachea midline, no thyromegaly Respiratory normal respiratory effort, lungs clear to auscultation Cardiovascular RRR, no murmur, no edema Chest (Breasts) Chest: normal inspection of chest Gastrointestinal (Abdomen) normal bowel sounds, soft, nontender, no hepatosplenomegaly Musculoskeletal Extremities: extremities normal to inspection; no cyanosis and no clubbing Skin no rashes, warm and dry Neurologic moves all extremities and awake; no focal motor deficits Psychiatric A+Ox3, euthymic affect Lymphatic no lymphedema Discharge Data Allergies Allergy/AdvReac Type Severity Reaction Status Date / Time Penicillins Allergy Severe SHORTNESS Verified 01/31/21 11:24 OF BREATH procaine Allergy Unknown FLUSHING Verified 01/31/21 11:24 AND SHORTNESS OF BREATH Consultations 01/23/21 11:11 ED Decision to Admit Stat 01/23/21 21:39 Consult Urology Stat 01/24/21 11:48 Consult Cardiology Routine Procedures Performed Operation Date: 01/23/21 14:20 Actual Procedures p Cystoscopy, Left Ureteroscopy, Stone Basket Extraction, Stent Placement(Left) - Daniel Bobby MD Ordered Studies 01/23/21 FL KUB Routine FL fluoroscopy <1hr Routine 01/23/21 08:56 CT abd pelvis wo con Stat Abdomen Fluoroscopy 01/23/21 00:00 FL KUB CLINICAL HISTORY: LEFT STENT COMPARISON STUDY: CT of the abdomen and pelvis January 23, 2021 at 9:46 AM. FLUOROSCOPY TIME: 5 seconds. FLUOROSCOPIC IMAGES: 3 FINDINGS: Fluoroscopy was provided during cystoscopy, left stone extraction and ureteral stent placement. Proximal aspect of the left ureteral stent projects over the renal pelvis. IMPRESSION: Fluoroscopy provided during cystoscopy, left stone extraction and left ureteral stent insertion. ACT 112: Negative or not required by law. Electronically signed by: Pa Dickinson M.D. 01/23/2021 3:26 PM Abdomen/Pelvis CT 01/23/21 08:56 CT OF THE ABDOMEN AND PELVIS WITHOUT CONTRAST CLINICAL HISTORY: Kidney stone. Left flank pain. COMPARISON STUDY: Renal ultrasound November 09, 2014. TECHNIQUE: Axial images of the abdomen and pelvis were obtained without IV contrast. Images were reviewed in the axial, sagittal, and coronal planes. Automated exposure control was utilized for the study. A dose lowering technique was utilized adhering to the principles of ALARA. FINDINGS: A 2 mm distal left ureteral calculus just proximal to the ureterovesical junction results in mild left hydroureteronephrosis. There is moderate left perinephric infiltration and fluid. No additional urinary calculi are identified. Evaluation the remainder of the abdomen and pelvis is suboptimal on this unenhanced examination. Hepatic steatosis is noted. The spleen, adrenal glands and pancreas are unremarkable. There is no evidence for a bowel obstruction. Appendix is normal. There is colonic diverticulosis without evidence for acute diverticulitis. No suspicious osseous lesions are noted. There is no lymphadenopathy. IMPRESSION: 1. 2 mm distal left ureteral calculus which results in mild hydroureteronephrosis with moderate left perinephric fluid and infiltration. 2. Hepatic steatosis. ACT 112: Negative or not required by law. Electronically signed by: Pa Dickinson M.D. 01/23/2021 10:08 AM Chest X-Ray 01/23/21 11:57 XR chest 1V portable CLINICAL HISTORY: Preoperative evaluation. COMPARISON STUDY: Chest CT November 01, 2020. Chest radiograph December 03, 2020. FINDINGS: Lung volumes are normal. Lungs are clear. There is no pneumothorax or pleural effusion. Moderate cardiomegaly is unchanged. Mediastinal contours are normal. There is no evidence for pulmonary edema. IMPRESSION: 1. No acute cardiopulmonary findings. 2. Cardiomegaly. ACT 112: Negative or not required by law. Electronically signed by: Pa Dickinson M.D. 01/23/2021 12:11 PM ECHO: preserved EF, no WMAs or valvular disease Hospital Course (1) Nephrolithiasis: Patient with acute ureterolithiasis with mild hydronephrosis -now s/p stent and has no symptoms, doing well, no pain, kunal po, no UTI/sepsis. 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 (4) Hypertriglyceridemia: (5) Type 2 diabetes mellitus: Hyperglycemia here secondary to recent prednisone use advised to increase metformin to 500mg bid on dc and f/u with PCP seen by CDE here (6) Vitamin D insufficiency: No acute needs- continue supplementation (7) PAT (paroxysmal atrial tachycardia): had multple occurrences of PAT here, asymptomatic but he notes a fast heart rate frequently at home ECHO normal Seen by Cardiology no specific treatment but given high BP also, Cardio recommended starting m etoprolol started Toprol XL 25mg daily (8) Leukocytosis: secondary to stress and recent steroid use no UTI resolved (9) Hyperthyroidism: continue usual ivonne emeds Dispo-stable for dc to home Total Time Total Time Spent Total Time Spent (In Minutes): 40 min Total Time Includes: Examination of the Patient, Discharge Planning, Medication Reconciliation and Communication With Other Providers (Cardiology) Discharge Plan Discharge Items Patient Disposition: Home - Self-Care Reason For Visit: KIDNEY STONE Discharge Diagnosis: Kidney stone, Paroxysmal atrial tachycardia Condition on Discharge: Good Activity: Resume your previous activity Non-emergency contact: Primary Care Provider and Urologist Call non-emergency contact if: you have any medication questions, your symptoms worsen and your pain is not controlled Follow-up/Referrals: Cristobal Galo MD [Primary Care Provider] - (Follow up within 1-2 weeks.) Daniel Bobby MD [Physician] - (Dr. Bobby's office will call you to schedule an appointment within 2 weeks to remove your stent.) Diet: Carb Consistent or DM2 Addtl Attending Provider Instructions: Please take the antibiotic called Cipro for 4 more days. Follow up with Dr. oBbby to remove your stent in 2 weeks. You had frequent episodes of a fast heart beat called atrial tachycardia. This is not dangerous but it is recommended that you start on a medication called metoprolol to slow your heart rate down to prevent long filler cigar roller machine problems with your heart. Your metformin will be increased to twice a day to better control your blood sug ars. Follow up with your PCP within 1-2 weeks. Pending Studies at Discharge: Yes Stand-Alone Forms: My [facility] [employer] Medications and DC Order Prescriptions: New acetaminophen 325 mg Tablet 650 mg PO Q4H PRN (Reason: pain) Qty: 30 RF: 0 metoprolol succinate 25 mg tablet extended release 24 hr 25 mg PO DAILY Qty: 30 RF: 0 Continued albuterol sulfate [ProAir HFA] 90 mcg/actuation HFA aerosol inhaler 1 puff Inhalation DIRECTED PRN (Reason: Shortness Of Breath) Qty: 18 RF: 1 Incruse Ellipta 62.5 mcg/actuation blister with device 1 inh inhalation DAILY Qty: 30 RF: 5 (DME) OneTouch Ultra Blue Test Strip Strip See Rx Instructions .ROUTE .MEDSUPPLY Qty: 100 RF: 3 (DME) nebulizers Misc See Rx Instructions .ROUTE .MEDSUPPLY Qty: 1 RF: 0 ipratropium-albuterol 0.5 mg-3 mg(2.5 mg base)/3 mL solution for nebulization 3 ml inhalation Q6H PRN (Reason: wheezing) Qty: 180 RF: 3 (DME) blood-glucose meter [OneTouch Ultra2 Meter] Kit See Rx Instructions .ROUTE .MEDSUPPLY Qty: 1 RF: 0 (DME) lancets [OneTouch UltraSoft Lancets] Misc See Rx Instructions .ROUTE .MEDSUPPLY Qty: 100 RF: 3 aspirin 81 mg Tablet,Delayed Release (Dr/Ec) 81 mg PO QAM RF: 0 zinc 50 mg Tablet 50 mg PO QAM RF: 0 cholecalciferol (vitamin D3) [Vitamin D3] 25 mcg (1,000 unit) Tablet 2,000 unit PO QAM RF: 0 pantoprazole 40 mg tablet,delayed release (DR/EC) 40 mg PO QAM RF: 0 methimazole 5 mg tablet 5 mg PO QAM RF: 0 finasteride 5 mg tablet 5 mg PO QAM RF: 0 Breo Ellipta 100-25 mcg/dose blister with device 1 inh inhalation HS RF: 0 Changed metformin 500 mg tablet extended release 24 hr 500 mg PO BID Qty: 60 RF: 0 Discharge Orders: Discharge Order (Routine); Ordered 01/24/21 Ordered By: Estrellita Michel Admission Data Admit Date/Time: 01/23/21 12:38 Attending Provider: Estrellita Michel Admit Provider: Ryley Murphy Primary Care Provider: Cristobal Galo Other Providers: Ryley Murphy ; Daniel Bobby ; Junior Randall Other Interventions: Discharge Summary Assessment (RN) Last Done: 01/24/21 17:25 Coding Level of Care Code 94839 OBS Care - Discharge Diagnoses Nephrolithiasis N20.0 CKD (chronic kidney disease), stage III N18.32 Chronic kidney disease stage 3 subtype: stage 3b (GFR 30-44) COPD (chronic obstructive pulmonary disease) J44.9 COPD type: unspecified COPD Hypertriglyceridemia E78.1 Type 2 diabetes mellitus E11.22; N18.32 Chronic kidney disease stage: stage 3 (moderate) Chronic kidney disease stage 3 subtype: stage 3b (GFR 30-44) Diabetes mellitus complication detail: with chronic kidney disease Diabetes mellitus complication status: with kidney complications Diabetes mellitus long filler cigar roller machine insulin use: without fci use Vitamin D insufficiency E55.9 PAT (paroxysmal atrial tachycardia) I47.1 Leukocytosis D72.829 Hyperthyroidism E05.90
[2021-01-29 23:25] LABS: Component 2 DNR; Source URETERAL STONE
== END 2021-01-24 18:00 | disposition home or self-care (01) ==
LOC: ED 08:33 → SUATTDRO 12:38 → INTOOBSV 12:38 → EDINP 12:38 → 2S 21:18